=== PATIENT | female | born 1960 | race Caucasian/White ===

== ENCOUNTER → 2016-12-27 | Outpatient (CLI) | payer MEDICARE, MEDICAID ==
--- NOTE | 2016-12-27 11:34 | REPMRS ---
Patient History The patient states she has not had a clinical breast exam in over a year. Patient is postmenopausal and is nulliparous. Family history of prostate cancer in father at age 50 or over and colorectal cancer in sister. Digital Woman Screen Mammo: December 27, 2016 - Exam #: [id number] Bilateral CC and MLO view(s) were taken. Technologist: Rita Benson, Technologist Prior study comparison: January 08, 2016, digital woman screen mammo performed at [facility]. January 03, 2015, digital woman screen mammo performed at [facility]. December 07, 2013, digital woman screen mammo performed at [facility]. FINDINGS: The breast tissue is heterogeneously dense. This may lower the sensitivity of mammography. There is a moderate amount of heterogeneously dense fibroglandular tissue which is fairly symmetric. There is no interval development of dominant mass, architectural distortion, or clustered microcalcification typical of malignancy. There has been no change in the appearance of the mammogram from the prior studies. ASSESSMENT: BI-RADS/ACR category 1 mammogram. Negative. Recommendation Routine screening mammogram of both breasts in 1 year (for women over age 40). This mammogram was interpreted with the aid of an FDA-approved computer-aided dectection system. Electronically Signed By: Jeremiah Forrest MD 12/27/16 [id number]
== END ==
LOC: M WHC 09:51
PROVIDERS: ATTEND Internal Medicine
DX: Z12.31 Encounter for screening mammogram for malignant neoplasm of breast (principal)

== ENCOUNTER → 2017-03-05 | Outpatient (REF) | payer MEDICARE, MEDICAID ==
[2017-03-05 13:48] LABS: BASO % 0.7 % (0.0-1.0); EOS # 0.2 K/mm3 (0.0-0.50); EOS % 3.4 % (0.0-3.0); LARGE UNSTAINED CELL # 0.1 K/mm3 (0.0-0.4); LARGE UNSTAINED CELL % 1.6 % (0.0-4.0); LYMPH # 1.3 K/mm3 (1.5-4.5); LYMPH % 27.7 % (24.0-44.0); MEAN CORPUSCULAR HEMOGLOBIN 34.1 pg (27.0-33.0); MEAN CORPUSCULAR VOLUME 100.4 fl (80.0-96.0); MONO # 0.4 K/mm3 (0.0-0.8); MONO % 8.7 % (0.0-5.0); NEUTROPHILS # 2.6 K/mm3 (1.8-7.7); NEUTROPHILS % 57.8 % (36.0-66.0); PLATELET COUNT, AUTOMATED 228 k/mm3 (150-450); WHITE BLOOD COUNT 4.6 K/mm3 (4.0-10.0)
[2017-03-05 14:06] LABS: ALBUMIN 3.2 GM/DL (3.2-5.2); ALBUMIN/GLOBULIN RATIO 0.78 (1.00-1.93); ALKALINE PHOSPHATASE 81 U/L (45-117); ALT/SGPT 14 U/L (12-78); ANION GAP 6 MEQ/L (8-16); AST/SGOT 7 U/L (15-37); BILIRUBIN,TOTAL 0.1 MG/DL (0.2-1.0); BLOOD UREA NITROGEN 18 MG/DL (7-18); CALCIUM LEVEL 9.1 MG/DL (8.5-10.1); CARBAMAZEPINE (TEGRETOL) LEVEL 13.1 UG/ML (4.0-10.0); CARBON DIOXIDE LEVEL 29 MEQ/L (21-32); CHLORIDE LEVEL 96 MEQ/L (98-107); CREATININE FOR GFR 0.51 MG/DL (0.55-1.02); GLOMERULAR FILTRATION RATE > 60.0 (>51); GLUCOSE, FASTING 92 MG/DL (70-105); POTASSIUM SERUM 4.8 MEQ/L (3.5-5.1); SODIUM LEVEL 131 MEQ/L (136-145); TOTAL PROTEIN 7.3 GM/DL (6.4-8.2)
== END ==
LOC: M LABNEURO 12:47
PROVIDERS: ATTEND Psychiatry & Neurology Neurology
DX: R56.9 Unspecified convulsions (principal)

== ENCOUNTER → 2017-03-07 | Outpatient (REF) | payer MEDICARE, MEDICAID ==
[2017-03-07 09:46] LABS: MEAN CORPUSCULAR HEMOGLOBIN 33.6 pg (27.0-33.0); MEAN CORPUSCULAR HGB CONC 33.2 g/dl (32.0-36.5); RED CELL DISTRIBUTION WIDTH 15.1 % (11.5-14.5); WHITE BLOOD COUNT 5.5 K/mm3 (4.0-10.0)
[2017-03-07 10:00] LABS: ALBUMIN 2.9 GM/DL (3.2-5.2); ALBUMIN/GLOBULIN RATIO 0.73 (1.00-1.93); ALKALINE PHOSPHATASE 83 U/L (45-117); ALT/SGPT 16 U/L (12-78); ANION GAP 9 MEQ/L (8-16); AST/SGOT 6 U/L (15-37); BILIRUBIN,TOTAL 0.1 MG/DL (0.2-1.0); BLOOD UREA NITROGEN 18 MG/DL (7-18); CALCIUM LEVEL 8.5 MG/DL (8.5-10.1); CARBON DIOXIDE LEVEL 29 MEQ/L (21-32); CHLORIDE LEVEL 95 MEQ/L (98-107); CHOLESTEROL LEVEL 206 MG/DL (<200); CREATININE FOR GFR 0.58 MG/DL (0.55-1.02); GLOMERULAR FILTRATION RATE > 60.0 (>51); GLUCOSE, FASTING 81 MG/DL (70-105); POTASSIUM SERUM 4.9 MEQ/L (3.5-5.1); SODIUM LEVEL 133 MEQ/L (136-145); TOTAL PROTEIN 6.9 GM/DL (6.4-8.2); TRIGLYCERIDES LEVEL 179 MG/DL (<150)
== END ==
LOC: M SFHCPLAZ 08:28
PROVIDERS: ATTEND Internal Medicine
DX: G40.909 Epilepsy, unspecified, not intractable, without status epilepticus (principal); Z79.899 Other long term (current) drug therapy; E78.00 Pure hypercholesterolemia, unspecified

== ENCOUNTER → 2017-08-29 | Outpatient (REF) | payer MEDICARE, MEDICAID ==
[2017-08-29 12:17] LABS: MEAN CORPUSCULAR HEMOGLOBIN 33.2 pg (27.0-33.0); MEAN CORPUSCULAR HGB CONC 34.9 g/dl (32.0-36.5); MEAN CORPUSCULAR VOLUME 95.3 fl (80.0-96.0); PLATELET COUNT, AUTOMATED 213 10^3/uL (150-450); RED CELL DISTRIBUTION WIDTH 14.8 % (11.5-14.5); WHITE BLOOD COUNT 6.7 10^3/uL (4.0-10.0)
[2017-08-29 12:53] LABS: ALBUMIN/GLOBULIN RATIO 0.83 (1.00-1.93); ALKALINE PHOSPHATASE 78 U/L (45-117); ALT/SGPT 17 U/L (12-78); ANION GAP 7 MEQ/L (8-16); AST/SGOT 10 U/L (7-37); BILIRUBIN,TOTAL 0.2 MG/DL (0.2-1.0); BLOOD UREA NITROGEN 18 MG/DL (7-18); CALCIUM LEVEL 8.5 MG/DL (8.5-10.1); CARBON DIOXIDE LEVEL 28 MEQ/L (21-32); CHLORIDE LEVEL 95 MEQ/L (98-107); CHOLESTEROL LEVEL 227 MG/DL (<200); GLOMERULAR FILTRATION RATE > 60.0 (>51); GLUCOSE, FASTING 82 MG/DL (70-105); MAGNESIUM LEVEL 2.1 MG/DL (1.8-2.4); SODIUM LEVEL 130 MEQ/L (136-145); TOTAL PROTEIN 6.6 GM/DL (6.4-8.2); TRIGLYCERIDES LEVEL 152 MG/DL (<150)
[2017-08-29 12:56] LABS: POTASSIUM SERUM 5.5 MEQ/L (3.5-5.1)
== END ==
LOC: M SFHCPLAZ 10:01
PROVIDERS: ATTEND Internal Medicine
DX: G40.909 Epilepsy, unspecified, not intractable, without status epilepticus (principal); E87.1 Hypo-osmolality and hyponatremia; E03.9 Hypothyroidism, unspecified; E78.00 Pure hypercholesterolemia, unspecified; Z51.81 Encounter for therapeutic drug level monitoring; Z23 Encounter for immunization; Z79.899 Other long term (current) drug therapy
CPT/HCPCS: 36415; 80053; 80061; 83735; 84443; 85027; 90686; G0008; G0463

== ENCOUNTER → 2017-10-29 | Outpatient (REF) | payer MEDICARE, MEDICAID ==
[2017-10-29 17:57] LABS: BASO % 0.6 % (0.0-1.0); EOS # 0.1 10^3/uL (0.0-0.50); EOS % 1.3 % (0.0-3.0); HEMOGLOBIN 11.7 g/dl (12.0-16.0); IMMATURE GRANULOCYTE % 0.7 % (0-0); LYMPH # 1.5 10^3/uL (1.5-4.5); LYMPH % 27.7 % (24.0-44.0); MEAN CORPUSCULAR HEMOGLOBIN 33.2 pg (27.0-33.0); MEAN CORPUSCULAR HGB CONC 35.5 g/dl (32.0-36.5); MEAN CORPUSCULAR VOLUME 93.8 fl (80.0-96.0); MONO # 0.4 10^3/uL (0.0-0.8); MONO % 7.3 % (0.0-5.0); NEUTROPHILS # 3.3 10^3/uL (1.8-7.7); NEUTROPHILS % 62.4 % (36.0-66.0); PLATELET COUNT, AUTOMATED 202 10^3/uL (150-450); RED BLOOD COUNT 3.52 10^6/uL (4.00-5.40); RED CELL DISTRIBUTION WIDTH 14.6 % (11.5-14.5); WHITE BLOOD COUNT 5.3 10^3/uL (4.0-10.0)
[2017-10-29 20:13] LABS: ALBUMIN 3.2 GM/DL (3.2-5.2); ALKALINE PHOSPHATASE 97 U/L (45-117); ALT/SGPT 20 U/L (12-78); ANION GAP 8 MEQ/L (8-16); AST/SGOT 14 U/L (7-37); BILIRUBIN,TOTAL 0.2 MG/DL (0.2-1.0); BLOOD UREA NITROGEN 18 MG/DL (7-18); CALCIUM LEVEL 8.5 MG/DL (8.5-10.1); CARBON DIOXIDE LEVEL 28 MEQ/L (21-32); CHLORIDE LEVEL 93 MEQ/L (98-107); CREATININE FOR GFR 0.65 MG/DL (0.55-1.02); GLOMERULAR FILTRATION RATE > 60.0 (>51); GLUCOSE, FASTING 81 MG/DL (70-105); SODIUM LEVEL 129 MEQ/L (136-145); TOTAL PROTEIN 7.2 GM/DL (6.4-8.2); VALPROIC ACID (DEPAKOTE) 91.3 UG/ML (50.0-100.0)
[2017-10-29 20:20] LABS: POTASSIUM SERUM 5.3 MEQ/L (3.5-5.1)
== END ==
LOC: M LABNEURO 11:49
DX: G40.909 Epilepsy, unspecified, not intractable, without status epilepticus (principal); G43.909 Migraine, unspecified, not intractable, without status migrainosus
CPT/HCPCS: 80156

== ENCOUNTER → 2018-03-09 | Outpatient (REF) | payer MEDICARE, MEDICAID ==
[2018-03-09 16:00] LABS: HEMATOCRIT 32.7 % (36.0-47.0); HEMOGLOBIN 10.9 g/dl (12.0-15.5); MEAN CORPUSCULAR HEMOGLOBIN 31.1 pg (27.0-33.0); MEAN CORPUSCULAR HGB CONC 33.3 g/dl (32.0-36.5); MEAN CORPUSCULAR VOLUME 93.4 fl (80.0-96.0); PLATELET COUNT, AUTOMATED 184 10^3/uL (150-450); RED CELL DISTRIBUTION WIDTH 15.5 % (11.5-14.5); WHITE BLOOD COUNT 6.6 10^3/uL (4.0-10.0)
[2018-03-09 16:22] LABS: ALBUMIN/GLOBULIN RATIO 0.73 (1.00-1.93); ALKALINE PHOSPHATASE 86 U/L (45-117); ALT/SGPT 15 U/L (12-78); ANION GAP 8 MEQ/L (8-16); AST/SGOT 13 U/L (7-37); BILIRUBIN,TOTAL 0.1 MG/DL (0.2-1.0); BLOOD UREA NITROGEN 17 MG/DL (7-18); CALCIUM LEVEL 8.2 MG/DL (8.5-10.1); CARBON DIOXIDE LEVEL 26 MEQ/L (21-32); CHLORIDE LEVEL 97 MEQ/L (98-107); CHOLESTEROL LEVEL 222 MG/DL (<200); CHOLESTEROL RISK RATIO 3.894 (<5); CREATININE FOR GFR 0.71 MG/DL (0.55-1.30); GLOMERULAR FILTRATION RATE > 60.0 (>51); GLUCOSE, FASTING 80 MG/DL (70-100); HDL CHOLESTEROL 57 MG/DL (>40); MAGNESIUM LEVEL 2.2 MG/DL (1.8-2.4); NON-HDL-C 165 MG/DL; POTASSIUM SERUM 5.1 MEQ/L (3.5-5.1); SODIUM LEVEL 131 MEQ/L (136-145); TOTAL PROTEIN 7.1 GM/DL (6.4-8.2); TRIGLYCERIDES LEVEL 185 MG/DL (<150)
== END ==
LOC: M SFHCPLAZ 11:45
DX: G40.909 Epilepsy, unspecified, not intractable, without status epilepticus (principal); E78.00 Pure hypercholesterolemia, unspecified; E03.9 Hypothyroidism, unspecified
CPT/HCPCS: 83735

== ENCOUNTER 2018-07-01 09:22 | Inpatient (IN) | payer MEDICARE, MEDICAID ==
[~2018-07-01 09:22] MED LIST: FLUTICASONE PROP 0.05% NASAL SPRAY 16 GM (FLONASE) NARES
[2018-07-01 10:16] LABS: BASO % 0.3 % (0.0-1.0); EOS % 0.2 % (0.0-3.0); HEMOGLOBIN 13.1 g/dl (12.0-15.5); IMMATURE GRANULOCYTE % 0.6 % (0-3.0); LYMPH # 0.9 10^3/uL (1.5-4.5); MEAN CORPUSCULAR HEMOGLOBIN 31.7 pg (27.0-33.0); MEAN CORPUSCULAR HGB CONC 34.5 g/dl (32.0-36.5); MONO # 0.9 10^3/uL (0.0-0.8); MONO % 13.8 % (0.0-5.0); NEUTROPHILS # 4.7 10^3/uL (1.8-7.7); NEUTROPHILS % 72.1 % (36.0-66.0); PLATELET COUNT, AUTOMATED 129 10^3/uL (150-450); RED BLOOD COUNT 4.13 10^6/uL (4.00-5.40); RED CELL DISTRIBUTION WIDTH 16.1 % (11.5-14.5); VENOUS BASE EXCESS -0.5 (-2.0-2.0); VENOUS HCO3 25.4 MEQ/L (23.0-27.0); VENOUS O2 SATURATION 51.2 % (60.0-80.0); VENOUS PARTIAL PRESSURE CO2 46.8 mmHg (38.0-50.0); VENOUS PARTIAL PRESSURE O2 29.2 mmHg (30.0-50.0); VENOUS PH 7.353 UNITS (7.330-7.430); VENOUS STANDARD HCO3 22.9 MEQ/L; VENOUS TOTAL CO2 26.9 MEQ/L (24.0-28.0); WHITE BLOOD COUNT 6.5 10^3/uL (4.0-10.0)
[2018-07-01 10:38] LABS: AMMONIA 20 uMOL/L (<32)
[2018-07-01 10:43] LABS: ALBUMIN 3.3 GM/DL (3.2-5.2); ALBUMIN/GLOBULIN RATIO 0.77 (1.00-1.93); ALKALINE PHOSPHATASE 84 U/L (45-117); ALT/SGPT 34 U/L (12-78); ANION GAP 12 MEQ/L (8-16); AST/SGOT 53 U/L (7-37); BILIRUBIN,DIRECT 0.1 MG/DL (0.0-0.2); BILIRUBIN,TOTAL 0.3 MG/DL (0.2-1.0); BLOOD UREA NITROGEN 22 MG/DL (7-18); CARBON DIOXIDE LEVEL 24 MEQ/L (21-32); CHLORIDE LEVEL 95 MEQ/L (98-107); CREATININE FOR GFR 0.74 MG/DL (0.55-1.30); ETHYL ALCOHOL (ETHANOL) < 0.003 % (0.000-0.010); GLOMERULAR FILTRATION RATE > 60.0 (>51); GLUCOSE, FASTING 113 MG/DL (70-100); POTASSIUM SERUM 4.1 MEQ/L (3.5-5.1); SALICYLATE LEVEL < 1.7 MG/DL (5.0-30.0); SODIUM LEVEL 131 MEQ/L (136-145); TOTAL PROTEIN 7.6 GM/DL (6.4-8.2); TROPONIN I 0.03 NG/ML (< 0.10)
[2018-07-01 10:44] LABS: LACTIC ACID SEPSIS PROTOCOL 1.2 MMOL/L (0.4-2.0)
[2018-07-01] MEDS: NS 1,000 ML IV ×2 (10:48→13:59)
[2018-07-01] MEDS: DIVALPROEX 500 MG TAB PO ×3 (10:48→21:36)
[2018-07-01 10:55] LABS: CK-MB VALUE MASS 15.9 NG/ML (<3.6); CPK CREATINE PHOSPHOKINASE 1271 U/L (26-192); MB/CK RELATIVE INDEX 1.25 (< OR =4)
[2018-07-01 10:57] LABS: ACETAMINOPHEN LEVEL < 2.0 UG/ML (10.0-30.0)
[2018-07-01 12:40] LABS: MYOGLOBIN SCREEN, URINE POSITIVE (NEGATIVE)
[2018-07-01 12:41] LABS: AMPHETAMINES LEVEL URINE NEGATIVE (NEGATIVE); BARBITURATES URINE NEGATIVE (NEGATIVE); BENZODIAZEPINES URINE NEGATIVE (NEGATIVE); CANNABINOIDS URINE NEGATIVE (NEGATIVE); COCAINE METABOLITE URINE NEGATIVE (NEGATIVE); METHADONE URINE NEGATIVE (NEGATIVE); OPIATES URINE NEGATIVE (NEGATIVE); PHENCYCLIDINE URINE NEGATIVE (NEGATIVE)
[2018-07-01 12:49] LABS: VALPROIC ACID (DEPAKOTE) 13.3 UG/ML (50.0-100.0)
[2018-07-01] MEDS ORDERED: ACETAMINOPHEN TAB 650MG DOSE (2X325MG) PO (13:00)
[2018-07-01] MEDS ORDERED: ONDANSETRON 4MG/2ML VIAL (J2405) IV (13:00)
[2018-07-01 13:31] LABS: MYOGLOBIN 791 NG/ML (13-71)
[2018-07-01] MEDS: CitaloPRAM (CeleXA) 20 MG TAB PO (13:59)
[2018-07-01] MEDS: levETIRAcetam 250MG TABLET (KEPPRA) PO ×2 (13:59→21:36)
[2018-07-01] MEDS: OMEPRAZOLE 20 MG CAP PO (13:59)
[2018-07-01] MEDS: LEVOTHYROXINE 112MCG TABLET (0.112MG) PO (14:00)
[2018-07-01] MEDS: carBAMazepine 200 MG TAB PO ×2 (14:01→21:35)
[2018-07-01 14:19] LABS: CARBAMAZEPINE (TEGRETOL) LEVEL 6.7 UG/ML (4.0-10.0)
[2018-07-01 15:23] LABS: CARBAMAZEPINE (TEGRETOL) LEVEL 4.8 UG/ML (4.0-10.0)
[2018-07-01] MEDS: HEPARIN SOD (PORCINE) 5000 UNITS/ML VIAL SQ ×2 (16:24→21:35)
[2018-07-02] MEDS: NS 1,000 ML IV ×5 (00:38→20:00)
[2018-07-02] MEDS: TAMSULOSIN 0.4 MG CAP PO (01:57)
[2018-07-02] MEDS: NYSTATIN 100,000 UNITS/GM TOPICAL PWD 15 GM TOP ×4 (02:15→21:25)
[2018-07-02] MEDS: LEVOTHYROXINE 112MCG TABLET (0.112MG) PO (05:32)
[2018-07-02] MEDS: HEPARIN SOD (PORCINE) 5000 UNITS/ML VIAL SQ ×3 (05:33→21:25)
[2018-07-02 06:42] LABS: MEAN CORPUSCULAR HEMOGLOBIN 32.1 pg (27.0-33.0); MEAN CORPUSCULAR VOLUME 94.3 fl (80.0-96.0); PLATELET COUNT, AUTOMATED 104 10^3/uL (150-450); RED BLOOD COUNT 3.18 10^6/uL (4.00-5.40); RED CELL DISTRIBUTION WIDTH 16.5 % (11.5-14.5); WHITE BLOOD COUNT 5.3 10^3/uL (4.0-10.0)
[2018-07-02 06:54] LABS: ALBUMIN 2.4 GM/DL (3.2-5.2); ALKALINE PHOSPHATASE 65 U/L (45-117); ALT/SGPT 49 U/L (12-78); ANION GAP 11 MEQ/L (8-16); AST/SGOT 74 U/L (7-37); BILIRUBIN,TOTAL 0.2 MG/DL (0.2-1.0); BLOOD UREA NITROGEN 21 MG/DL (7-18); CARBON DIOXIDE LEVEL 21 MEQ/L (21-32); CHLORIDE LEVEL 104 MEQ/L (98-107); CPK CREATINE PHOSPHOKINASE 644 U/L (26-192); CREATININE FOR GFR 0.55 MG/DL (0.55-1.30); GLOMERULAR FILTRATION RATE > 60.0 (>51); GLUCOSE, FASTING 93 MG/DL (70-100); POTASSIUM SERUM 4.1 MEQ/L (3.5-5.1); SODIUM LEVEL 136 MEQ/L (136-145); TOTAL PROTEIN 6.4 GM/DL (6.4-8.2)
[2018-07-02 06:56] LABS: HEMOGLOBIN 10.2 g/dl (12.0-15.5)
[2018-07-02] MEDS: CitaloPRAM (CeleXA) 20 MG TAB PO (09:26)
[2018-07-02] MEDS: OMEPRAZOLE 20 MG CAP PO (09:26)
[2018-07-02] MEDS: carBAMazepine 200 MG TAB PO ×3 (09:26→21:24)
[2018-07-02] MEDS: DIVALPROEX 500 MG TAB PO ×3 (09:26→21:24)
[2018-07-02] MEDS: levETIRAcetam 250MG TABLET (KEPPRA) PO ×2 (09:26→21:24)
[2018-07-02] MEDS: CETIRIZINE (ZyrTEC) 10 MG TAB PO (23:20)
[2018-07-02] MEDS: BENZONATATE 100 MG CAP PO (23:20)
[2018-07-03] MEDS: NS 1,000 ML IV (04:55)
[2018-07-03] MEDS: LEVOTHYROXINE 112MCG TABLET (0.112MG) PO (05:37)
[2018-07-03] MEDS: HEPARIN SOD (PORCINE) 5000 UNITS/ML VIAL SQ ×3 (05:38→21:06)
[2018-07-03 06:14] LABS: HEMATOCRIT 28.7 % (36.0-47.0); HEMOGLOBIN 9.8 g/dl (12.0-15.5); MEAN CORPUSCULAR HGB CONC 34.1 g/dl (32.0-36.5); MEAN CORPUSCULAR VOLUME 93.8 fl (80.0-96.0); PLATELET COUNT, AUTOMATED 114 10^3/uL (150-450); RED BLOOD COUNT 3.06 10^6/uL (4.00-5.40); RED CELL DISTRIBUTION WIDTH 16.5 % (11.5-14.5); WHITE BLOOD COUNT 5.7 10^3/uL (4.0-10.0)
[2018-07-03 06:34] LABS: ALBUMIN 2.1 GM/DL (3.2-5.2); ALBUMIN/GLOBULIN RATIO 0.55 (1.00-1.93); ALKALINE PHOSPHATASE 69 U/L (45-117); ALT/SGPT 50 U/L (12-78); ANION GAP 11 MEQ/L (8-16); AST/SGOT 51 U/L (7-37); BILIRUBIN,TOTAL 0.2 MG/DL (0.2-1.0); BLOOD UREA NITROGEN 10 MG/DL (7-18); CALCIUM LEVEL 7.7 MG/DL (8.5-10.1); CARBON DIOXIDE LEVEL 21 MEQ/L (21-32); CHLORIDE LEVEL 108 MEQ/L (98-107); GLOMERULAR FILTRATION RATE > 60.0 (>51); GLUCOSE, FASTING 90 MG/DL (70-100); POTASSIUM SERUM 3.9 MEQ/L (3.5-5.1); SODIUM LEVEL 140 MEQ/L (136-145); TOTAL PROTEIN 5.9 GM/DL (6.4-8.2)
[2018-07-03] MEDS: DIVALPROEX 500 MG TAB PO ×3 (09:09→21:06)
[2018-07-03] MEDS: carBAMazepine 200 MG TAB PO ×3 (09:09→21:05)
[2018-07-03] MEDS: levETIRAcetam 250MG TABLET (KEPPRA) PO ×2 (09:10→21:05)
[2018-07-03] MEDS: CitaloPRAM (CeleXA) 20 MG TAB PO (09:10)
[2018-07-03] MEDS: NYSTATIN 100,000 UNITS/GM TOPICAL PWD 15 GM TOP ×3 (09:10→21:07)
[2018-07-03] MEDS: OMEPRAZOLE 20 MG CAP PO (09:10)
[2018-07-03 10:19] LABS: CPK CREATINE PHOSPHOKINASE 280 U/L (26-192)
[2018-07-03] MEDS: CETIRIZINE (ZyrTEC) 10 MG TAB PO (21:05)
[2018-07-04 04:13] LABS: BEDSIDE GLUCOSE 95 MG/DL (70-105)
[2018-07-04] MEDS: HEPARIN SOD (PORCINE) 5000 UNITS/ML VIAL SQ ×3 (05:25→21:21)
[2018-07-04] MEDS: LEVOTHYROXINE 112MCG TABLET (0.112MG) PO (05:26)
[2018-07-04 06:13] LABS: HEMATOCRIT 28.2 % (36.0-47.0); HEMOGLOBIN 9.7 g/dl (12.0-15.5); MEAN CORPUSCULAR HEMOGLOBIN 31.5 pg (27.0-33.0); MEAN CORPUSCULAR HGB CONC 34.4 g/dl (32.0-36.5); MEAN CORPUSCULAR VOLUME 91.6 fl (80.0-96.0); PLATELET COUNT, AUTOMATED 127 10^3/uL (150-450); RED BLOOD COUNT 3.08 10^6/uL (4.00-5.40); RED CELL DISTRIBUTION WIDTH 16.5 % (11.5-14.5); WHITE BLOOD COUNT 4.6 10^3/uL (4.0-10.0)
[2018-07-04] MEDS: BENZONATATE 100 MG CAP PO ×2 (06:17→21:20)
[2018-07-04 06:25] LABS: ALBUMIN 2.1 GM/DL (3.2-5.2); ALBUMIN/GLOBULIN RATIO 0.51 (1.00-1.93); ALKALINE PHOSPHATASE 72 U/L (45-117); ALT/SGPT 41 U/L (12-78); ANION GAP 9 MEQ/L (8-16); AST/SGOT 30 U/L (7-37); BILIRUBIN,TOTAL 0.2 MG/DL (0.2-1.0); BLOOD UREA NITROGEN 7 MG/DL (7-18); CALCIUM LEVEL 8.3 MG/DL (8.5-10.1); CARBON DIOXIDE LEVEL 23 MEQ/L (21-32); CHLORIDE LEVEL 108 MEQ/L (98-107); GLOMERULAR FILTRATION RATE > 60.0 (>51); GLUCOSE, FASTING 81 MG/DL (70-100); POTASSIUM SERUM 3.7 MEQ/L (3.5-5.1); SODIUM LEVEL 140 MEQ/L (136-145); TOTAL PROTEIN 6.2 GM/DL (6.4-8.2)
[2018-07-04] MEDS: levETIRAcetam 250MG TABLET (KEPPRA) PO ×2 (09:21→21:20)
[2018-07-04] MEDS: CitaloPRAM (CeleXA) 20 MG TAB PO (09:21)
[2018-07-04] MEDS: carBAMazepine 200 MG TAB PO ×3 (09:21→21:20)
[2018-07-04] MEDS: OMEPRAZOLE 20 MG CAP PO (09:22)
[2018-07-04] MEDS: NYSTATIN 100,000 UNITS/GM TOPICAL PWD 15 GM TOP ×3 (09:22→21:21)
[2018-07-04] MEDS: DIVALPROEX 500 MG TAB PO ×3 (09:22→21:20)
[2018-07-04 11:27] LABS: ESTIMATED AVERAGE GLUCOSE 114 MG/DL (60-110); HEMOGLOBIN A1c 5.6 %
[2018-07-04] MEDS: LISINOPRIL 5 MG TAB PO (12:24)
[2018-07-04] MEDS: amLODIPine 10 MG TAB PO (12:24)
[2018-07-04 12:44] LABS: KETONE, URINE AUTO RFX TRACE mg/dL (NEGATIVE); NITRITE, URINE AUTO RFX NEGATIVE (NEGATIVE); RBC, URINE AUTO RFX 1 /HPF (0-3); SPECIFIC GRAVITY UR AUTO RFX 1.009 (1.002-1.035); SQUAM EPITHELIAL CELL UR AURFX 0 /HPF (0-6)
[2018-07-04 12:45] LABS: LEUKOCYTE ESTERASE UR AUTO RFX 1+ (NEGATIVE); WBC, URINE AUTO RFX 21 /HPF (0-3)
[2018-07-04] MEDS: CETIRIZINE (ZyrTEC) 10 MG TAB PO (21:20)
[2018-07-05] MEDS: BENZONATATE 100 MG CAP PO (00:27)
[2018-07-05] MEDS: LISINOPRIL 5 MG TAB PO ×2 (05:34→05:43)
[2018-07-05] MEDS: amLODIPine 10 MG TAB PO (05:42)
[2018-07-05] MEDS: LEVOTHYROXINE 112MCG TABLET (0.112MG) PO (05:42)
[2018-07-05] MEDS: HEPARIN SOD (PORCINE) 5000 UNITS/ML VIAL SQ ×3 (05:43→21:46)
[2018-07-05 06:19] LABS: HEMATOCRIT 30.2 % (36.0-47.0); HEMOGLOBIN 10.6 g/dl (12.0-15.5); MEAN CORPUSCULAR HEMOGLOBIN 32.1 pg (27.0-33.0); MEAN CORPUSCULAR HGB CONC 35.1 g/dl (32.0-36.5); MEAN CORPUSCULAR VOLUME 91.5 fl (80.0-96.0); PLATELET COUNT, AUTOMATED 171 10^3/uL (150-450); RED CELL DISTRIBUTION WIDTH 16.3 % (11.5-14.5); WHITE BLOOD COUNT 4.5 10^3/uL (4.0-10.0)
[2018-07-05 06:44] LABS: ALBUMIN 2.2 GM/DL (3.2-5.2); ALBUMIN/GLOBULIN RATIO 0.51 (1.00-1.93); ALKALINE PHOSPHATASE 73 U/L (45-117); ALT/SGPT 35 U/L (12-78); ANION GAP 9 MEQ/L (8-16); AST/SGOT 23 U/L (7-37); BILIRUBIN,TOTAL 0.3 MG/DL (0.2-1.0); BLOOD UREA NITROGEN 7 MG/DL (7-18); CALCIUM LEVEL 8.7 MG/DL (8.5-10.1); CARBON DIOXIDE LEVEL 24 MEQ/L (21-32); CHLORIDE LEVEL 105 MEQ/L (98-107); CREATININE FOR GFR 0.41 MG/DL (0.55-1.30); GLOMERULAR FILTRATION RATE > 60.0 (>51); GLUCOSE, FASTING 82 MG/DL (70-100); POTASSIUM SERUM 3.5 MEQ/L (3.5-5.1); SODIUM LEVEL 138 MEQ/L (136-145); TOTAL PROTEIN 6.5 GM/DL (6.4-8.2)
[2018-07-05 08:54] LABS: NT-PRO BNP 1803 PG/ML (<125)
[2018-07-05] MEDS ORDERED: amLODIPine 10 MG TAB PO (09:00)
[2018-07-05] MEDS: guaiFENesin DM LIQ 10ML UD PO ×2 (10:42→22:52)
[2018-07-05] MEDS: carBAMazepine 200 MG TAB PO ×3 (10:43→21:47)
[2018-07-05] MEDS: OMEPRAZOLE 20 MG CAP PO (10:43)
[2018-07-05] MEDS: levETIRAcetam 250MG TABLET (KEPPRA) PO ×2 (10:43→21:47)
[2018-07-05] MEDS: DIVALPROEX 500 MG TAB PO ×3 (10:43→21:47)
[2018-07-05] MEDS: CitaloPRAM (CeleXA) 20 MG TAB PO (10:44)
[2018-07-05] MEDS: cloNIDine 0.1 MG TAB PO ×2 (10:47→13:07)
[2018-07-05] MEDS: NYSTATIN 100,000 UNITS/GM TOPICAL PWD 15 GM TOP ×3 (10:48→21:47)
[2018-07-05] MEDS: LISINOPRIL 10 MG TAB PO ×2 (11:30→13:07)
[2018-07-05] MEDS: FUROSEMIDE 40 MG/4 ML VIAL (J1940) IV ×3 (11:30→22:55)
[2018-07-05 19:49] LABS: ANION GAP 8 MEQ/L (8-16); BLOOD UREA NITROGEN 8 MG/DL (7-18); CALCIUM LEVEL 8.7 MG/DL (8.5-10.1); CARBON DIOXIDE LEVEL 26 MEQ/L (21-32); CHLORIDE LEVEL 101 MEQ/L (98-107); CK-MB VALUE MASS 1.7 NG/ML (<3.6); CPK CREATINE PHOSPHOKINASE 97 U/L (26-192); CREATININE FOR GFR 0.57 MG/DL (0.55-1.30); GLOMERULAR FILTRATION RATE > 60.0 (>51); GLUCOSE, FASTING 83 MG/DL (70-100); MAGNESIUM LEVEL 1.7 MG/DL (1.8-2.4); MB/CK RELATIVE INDEX 1.75 (< OR =4); POTASSIUM SERUM 3.5 MEQ/L (3.5-5.1); SODIUM LEVEL 135 MEQ/L (136-145); TROPONIN I < 0.02 NG/ML (< 0.10)
[2018-07-05] MEDS: CETIRIZINE (ZyrTEC) 10 MG TAB PO (21:47)
[2018-07-06] MEDS: LEVOTHYROXINE 112MCG TABLET (0.112MG) PO (05:25)
[2018-07-06] MEDS: HEPARIN SOD (PORCINE) 5000 UNITS/ML VIAL SQ ×3 (05:25→21:55)
[2018-07-06] MEDS: FUROSEMIDE 40 MG/4 ML VIAL (J1940) IV ×3 (05:25→16:25)
[2018-07-06 06:11] LABS: HEMATOCRIT 30.2 % (36.0-47.0); HEMOGLOBIN 10.2 g/dl (12.0-15.5); MEAN CORPUSCULAR HEMOGLOBIN 31.6 pg (27.0-33.0); MEAN CORPUSCULAR HGB CONC 33.8 g/dl (32.0-36.5); MEAN CORPUSCULAR VOLUME 93.5 fl (80.0-96.0); PLATELET COUNT, AUTOMATED 178 10^3/uL (150-450); RED BLOOD COUNT 3.23 10^6/uL (4.00-5.40); RED CELL DISTRIBUTION WIDTH 16.5 % (11.5-14.5); WHITE BLOOD COUNT 4.4 10^3/uL (4.0-10.0)
[2018-07-06 06:17] LABS: ALBUMIN 2.4 GM/DL (3.2-5.2); ALBUMIN/GLOBULIN RATIO 0.55 (1.00-1.93); ALKALINE PHOSPHATASE 76 U/L (45-117); ALT/SGPT 30 U/L (12-78); ANION GAP 8 MEQ/L (8-16); AST/SGOT 19 U/L (7-37); BILIRUBIN,TOTAL 0.3 MG/DL (0.2-1.0); BLOOD UREA NITROGEN 11 MG/DL (7-18); CALCIUM LEVEL 8.5 MG/DL (8.5-10.1); CARBON DIOXIDE LEVEL 28 MEQ/L (21-32); CHLORIDE LEVEL 100 MEQ/L (98-107); CREATININE FOR GFR 0.62 MG/DL (0.55-1.30); GLOMERULAR FILTRATION RATE > 60.0 (>51); GLUCOSE, FASTING 80 MG/DL (70-100); POTASSIUM SERUM 3.2 MEQ/L (3.5-5.1); SODIUM LEVEL 136 MEQ/L (136-145); TOTAL PROTEIN 6.8 GM/DL (6.4-8.2)
[2018-07-06 09:23] LABS: TOTAL 25(OH) VITAMIN D 11.9 NG/ML (30.0-100.0)
[2018-07-06 09:24] LABS: VITAMIN B12 LEVEL 1608 PG/ML (247-911)
[2018-07-06 09:24] LABS: FOLATE 6.2 NG/ML (>5.4)
[2018-07-06] MEDS: BISACODYL 5 MG TAB PO (09:58)
[2018-07-06] MEDS: OMEPRAZOLE 20 MG CAP PO (09:58)
[2018-07-06] MEDS: DIVALPROEX 500 MG TAB PO ×3 (09:58→21:56)
[2018-07-06] MEDS: guaiFENesin DM LIQ 10ML UD PO ×3 (09:59→22:54)
[2018-07-06] MEDS: levETIRAcetam 250MG TABLET (KEPPRA) PO ×2 (09:59→21:55)
[2018-07-06] MEDS: CitaloPRAM (CeleXA) 20 MG TAB PO (09:59)
[2018-07-06] MEDS: carBAMazepine 200 MG TAB PO ×3 (09:59→21:56)
[2018-07-06] MEDS: NYSTATIN 100,000 UNITS/GM TOPICAL PWD 15 GM TOP ×3 (09:59→21:56)
[2018-07-06] MEDS: LevoFLOXacin 750 MG TABLET PO (15:09)
[2018-07-06] MEDS: POTASSIUM CHLORIDE 10 MEQ SR TABLET PO (17:28)
[2018-07-06] MEDS: BENZONATATE 100 MG CAP PO (17:35)
[2018-07-06] MEDS: CETIRIZINE (ZyrTEC) 10 MG TAB PO (21:55)
[2018-07-07] MEDS: HEPARIN SOD (PORCINE) 5000 UNITS/ML VIAL SQ ×3 (05:44→20:30)
[2018-07-07] MEDS: LEVOTHYROXINE 112MCG TABLET (0.112MG) PO (05:44)
[2018-07-07] MEDS: LevoFLOXacin 750 MG TABLET PO (05:44)
[2018-07-07] MEDS: BENZONATATE 100 MG CAP PO ×2 (05:45→20:30)
[2018-07-07 07:00] LABS: HEMATOCRIT 31.2 % (36.0-47.0); HEMOGLOBIN 10.7 g/dl (12.0-15.5); MEAN CORPUSCULAR HGB CONC 34.3 g/dl (32.0-36.5); MEAN CORPUSCULAR VOLUME 90.4 fl (80.0-96.0); PLATELET COUNT, AUTOMATED 210 10^3/uL (150-450); RED BLOOD COUNT 3.45 10^6/uL (4.00-5.40); RED CELL DISTRIBUTION WIDTH 16.3 % (11.5-14.5); WHITE BLOOD COUNT 4.6 10^3/uL (4.0-10.0)
[2018-07-07 07:31] LABS: ALBUMIN 2.5 GM/DL (3.2-5.2); ALKALINE PHOSPHATASE 76 U/L (45-117); ALT/SGPT 25 U/L (12-78); ANION GAP 10 MEQ/L (8-16); AST/SGOT 19 U/L (7-37); BILIRUBIN,TOTAL 0.3 MG/DL (0.2-1.0); BLOOD UREA NITROGEN 15 MG/DL (7-18); CALCIUM LEVEL 8.7 MG/DL (8.5-10.1); CARBON DIOXIDE LEVEL 28 MEQ/L (21-32); CHLORIDE LEVEL 97 MEQ/L (98-107); CREATININE FOR GFR 0.74 MG/DL (0.55-1.30); GLOMERULAR FILTRATION RATE > 60.0 (>51); GLUCOSE, FASTING 84 MG/DL (70-100); POTASSIUM SERUM 3.4 MEQ/L (3.5-5.1); SODIUM LEVEL 135 MEQ/L (136-145); TOTAL PROTEIN 7.1 GM/DL (6.4-8.2)
[2018-07-07 08:32] LABS: ALBUMIN/GLOBULIN RATIO 1.84 (1.00-1.93)
[2018-07-07] MEDS: levETIRAcetam 250MG TABLET (KEPPRA) PO ×2 (09:25→20:30)
[2018-07-07] MEDS: DIVALPROEX 500 MG TAB PO ×3 (09:25→20:30)
[2018-07-07] MEDS: OMEPRAZOLE 20 MG CAP PO (09:26)
[2018-07-07] MEDS: CitaloPRAM (CeleXA) 20 MG TAB PO (09:26)
[2018-07-07] MEDS: carBAMazepine 200 MG TAB PO ×3 (09:27→20:30)
[2018-07-07] MEDS: NYSTATIN 100,000 UNITS/GM TOPICAL PWD 15 GM TOP ×3 (09:27→20:31)
[2018-07-07] MEDS: POTASSIUM CHLORIDE 10 MEQ SR TABLET PO (09:27)
[2018-07-07] MEDS: CETIRIZINE (ZyrTEC) 10 MG TAB PO (20:31)
[2018-07-07] MEDS: guaiFENesin DM LIQ 10ML UD PO (22:49)
[2018-07-08] MEDS: LEVOTHYROXINE 112MCG TABLET (0.112MG) PO (05:48)
[2018-07-08] MEDS: HEPARIN SOD (PORCINE) 5000 UNITS/ML VIAL SQ ×3 (05:48→22:33)
[2018-07-08] MEDS: BENZONATATE 100 MG CAP PO ×2 (05:48→18:55)
[2018-07-08] MEDS: LevoFLOXacin 750 MG TABLET PO (05:49)
[2018-07-08 06:43] LABS: HEMATOCRIT 31.2 % (36.0-47.0); HEMOGLOBIN 10.5 g/dl (12.0-15.5); MEAN CORPUSCULAR HEMOGLOBIN 31.3 pg (27.0-33.0); MEAN CORPUSCULAR HGB CONC 33.7 g/dl (32.0-36.5); MEAN CORPUSCULAR VOLUME 93.1 fl (80.0-96.0); PLATELET COUNT, AUTOMATED 201 10^3/uL (150-450); RED BLOOD COUNT 3.35 10^6/uL (4.00-5.40); RED CELL DISTRIBUTION WIDTH 16.2 % (11.5-14.5); WHITE BLOOD COUNT 4.2 10^3/uL (4.0-10.0)
[2018-07-08 07:12] LABS: ALBUMIN 2.4 GM/DL (3.2-5.2); ALBUMIN/GLOBULIN RATIO 0.53 (1.00-1.93); ALKALINE PHOSPHATASE 77 U/L (45-117); ALT/SGPT 24 U/L (12-78); ANION GAP 8 MEQ/L (8-16); AST/SGOT 21 U/L (7-37); BILIRUBIN,TOTAL 0.3 MG/DL (0.2-1.0); BLOOD UREA NITROGEN 17 MG/DL (7-18); CALCIUM LEVEL 8.7 MG/DL (8.5-10.1); CARBON DIOXIDE LEVEL 29 MEQ/L (21-32); CHLORIDE LEVEL 94 MEQ/L (98-107); CREATININE FOR GFR 0.68 MG/DL (0.55-1.30); GLOMERULAR FILTRATION RATE > 60.0 (>51); GLUCOSE, FASTING 87 MG/DL (70-100); POTASSIUM SERUM 3.6 MEQ/L (3.5-5.1); SODIUM LEVEL 131 MEQ/L (136-145); TOTAL PROTEIN 6.9 GM/DL (6.4-8.2)
[2018-07-08] MEDS: POTASSIUM CHLORIDE 10 MEQ SR TABLET PO (09:15)
[2018-07-08] MEDS: levETIRAcetam 250MG TABLET (KEPPRA) PO ×2 (09:15→20:06)
[2018-07-08] MEDS: CitaloPRAM (CeleXA) 20 MG TAB PO (09:16)
[2018-07-08] MEDS: carBAMazepine 200 MG TAB PO ×3 (09:16→20:06)
[2018-07-08] MEDS: OMEPRAZOLE 20 MG CAP PO (09:16)
[2018-07-08] MEDS: BISACODYL 5 MG TAB PO (09:16)
[2018-07-08] MEDS: DIVALPROEX 500 MG TAB PO ×3 (09:16→20:07)
[2018-07-08] MEDS: NYSTATIN 100,000 UNITS/GM TOPICAL PWD 15 GM TOP ×3 (09:16→20:07)
[2018-07-08] MEDS: guaiFENesin DM LIQ 10ML UD PO (20:05)
[2018-07-08] MEDS: CETIRIZINE (ZyrTEC) 10 MG TAB PO (20:06)
[2018-07-09] MEDS: guaiFENesin DM LIQ 10ML UD PO ×2 (01:00→16:01)
[2018-07-09] MEDS: **hydrALAZINE** 10 MG TAB PO (01:02)
[2018-07-09] MEDS: LEVOTHYROXINE 112MCG TABLET (0.112MG) PO (06:24)
[2018-07-09] MEDS: HEPARIN SOD (PORCINE) 5000 UNITS/ML VIAL SQ ×3 (06:25→21:09)
[2018-07-09] MEDS: NYSTATIN 100,000 UNITS/GM TOPICAL PWD 15 GM TOP ×3 (09:00→21:10)
[2018-07-09] MEDS: OMEPRAZOLE 20 MG CAP PO (10:10)
[2018-07-09] MEDS: CitaloPRAM (CeleXA) 20 MG TAB PO (10:10)
[2018-07-09] MEDS: DIVALPROEX 500 MG TAB PO ×3 (10:11→21:09)
[2018-07-09] MEDS: levETIRAcetam 250MG TABLET (KEPPRA) PO ×2 (10:11→21:10)
[2018-07-09] MEDS: POTASSIUM CHLORIDE 10 MEQ SR TABLET PO (10:14)
[2018-07-09] MEDS: FUROSEMIDE 40 MG TAB PO (10:14)
[2018-07-09] MEDS: amLODIPine 5 MG TAB PO (10:14)
[2018-07-09] MEDS: carBAMazepine 200 MG TAB PO ×3 (10:15→21:10)
[2018-07-09] MEDS: CETIRIZINE (ZyrTEC) 10 MG TAB PO (21:09)
[2018-07-09] MEDS: SENOKOT S TAB PO (21:09)
[2018-07-10] MEDS: guaiFENesin DM LIQ 10ML UD PO ×2 (00:14→23:19)
[2018-07-10] MEDS: BENZONATATE 100 MG CAP PO ×3 (00:28→23:19)
[2018-07-10] MEDS: HEPARIN SOD (PORCINE) 5000 UNITS/ML VIAL SQ ×3 (05:56→21:32)
[2018-07-10] MEDS: LEVOTHYROXINE 112MCG TABLET (0.112MG) PO (05:56)
[2018-07-10 06:25] LABS: HEMATOCRIT 29.7 % (36.0-47.0); HEMOGLOBIN 10.2 g/dl (12.0-15.5); MEAN CORPUSCULAR HEMOGLOBIN 31.6 pg (27.0-33.0); MEAN CORPUSCULAR HGB CONC 34.3 g/dl (32.0-36.5); PLATELET COUNT, AUTOMATED 194 10^3/uL (150-450); RED BLOOD COUNT 3.23 10^6/uL (4.00-5.40); RED CELL DISTRIBUTION WIDTH 16.4 % (11.5-14.5); WHITE BLOOD COUNT 3.9 10^3/uL (4.0-10.0)
[2018-07-10 06:27] LABS: ADD MANUAL DIFFER YES; DIFF SLIDE NUMBER 63; POS COUNT POS FLAG; POSITIVE MORPH POS FLAG
[2018-07-10 06:39] LABS: ANION GAP 7 MEQ/L (8-16); BLOOD UREA NITROGEN 24 MG/DL (7-18); CALCIUM LEVEL 8.6 MG/DL (8.5-10.1); CARBON DIOXIDE LEVEL 27 MEQ/L (21-32); CHLORIDE LEVEL 97 MEQ/L (98-107); CREATININE FOR GFR 0.79 MG/DL (0.55-1.30); GLOMERULAR FILTRATION RATE > 60.0 (>51); GLUCOSE, FASTING 94 MG/DL (70-100); POTASSIUM SERUM 3.9 MEQ/L (3.5-5.1); SODIUM LEVEL 131 MEQ/L (136-145)
[2018-07-10 07:04] LABS: ATYPICAL LYMPH 24 % (0-5); BANDS 3 % (< 11); EOSINOPHILS 1 % (0-5); LYMPHOCYTES 23 % (16-52); METAMYELOCYTES 1 % (0-0); MONOCYTES 12 % (0-8); NEUTROPHILS 36 % (35-75); PLATELET ESTIMATE NORMAL (NORMAL)
[2018-07-10 07:05] LABS: OVALOCYTES 1+
[2018-07-10 07:06] LABS: ACANTHOCYTES 1+
[2018-07-10] MEDS: MIRALAX *UNIT DOSE* 17GM PACKET PO (09:11)
[2018-07-10] MEDS: levETIRAcetam 250MG TABLET (KEPPRA) PO ×2 (09:11→21:32)
[2018-07-10] MEDS: DIVALPROEX 500 MG TAB PO ×3 (09:12→21:32)
[2018-07-10] MEDS: POTASSIUM CHLORIDE 10 MEQ SR TABLET PO (09:12)
[2018-07-10] MEDS: SENOKOT S TAB PO ×2 (09:12→21:32)
[2018-07-10] MEDS: carBAMazepine 200 MG TAB PO ×3 (09:13→21:33)
[2018-07-10] MEDS: OMEPRAZOLE 20 MG CAP PO (09:13)
[2018-07-10] MEDS: amLODIPine 5 MG TAB PO (09:14)
[2018-07-10] MEDS: FUROSEMIDE 40 MG TAB PO (09:14)
[2018-07-10] MEDS: CitaloPRAM (CeleXA) 20 MG TAB PO (09:14)
[2018-07-10] MEDS: NYSTATIN 100,000 UNITS/GM TOPICAL PWD 15 GM TOP ×3 (09:15→21:34)
[2018-07-10 20:13] LABS: REASON FOR REVIEW ATYPICAL LYMPHS; SLIDE REVIEW Report; SOURCE PERIPHERAL SMEAR
[2018-07-10] MEDS: CETIRIZINE (ZyrTEC) 10 MG TAB PO (21:33)
[2018-07-11] MEDS: LEVOTHYROXINE 112MCG TABLET (0.112MG) PO (05:43)
[2018-07-11] MEDS: HEPARIN SOD (PORCINE) 5000 UNITS/ML VIAL SQ ×3 (05:43→20:00)
[2018-07-11 06:20] LABS: BASO % 0.5 % (0.0-1.0); EOS # 0.1 10^3/uL (0.0-0.50); EOS % 1.2 % (0.0-3.0); HEMATOCRIT 28.8 % (36.0-47.0); HEMOGLOBIN 9.8 g/dl (12.0-15.5); IMMATURE GRANULOCYTE % 4.6 % (0-3.0); LYMPH # 1.8 10^3/uL (1.5-4.5); LYMPH % 43.8 % (24.0-44.0); MEAN CORPUSCULAR HEMOGLOBIN 31.6 pg (27.0-33.0); MEAN CORPUSCULAR VOLUME 92.9 fl (80.0-96.0); MONO # 0.7 10^3/uL (0.0-0.8); MONO % 17.1 % (0.0-5.0); NEUTROPHILS # 1.3 10^3/uL (1.8-7.7); NEUTROPHILS % 32.8 % (36.0-66.0); PLATELET COUNT, AUTOMATED 179 10^3/uL (150-450); RED CELL DISTRIBUTION WIDTH 16.8 % (11.5-14.5); WHITE BLOOD COUNT 4.1 10^3/uL (4.0-10.0)
[2018-07-11 06:43] LABS: ANION GAP 6 MEQ/L (8-16); BLOOD UREA NITROGEN 29 MG/DL (7-18); CALCIUM LEVEL 8.6 MG/DL (8.5-10.1); CARBON DIOXIDE LEVEL 29 MEQ/L (21-32); CHLORIDE LEVEL 99 MEQ/L (98-107); CREATININE FOR GFR 0.94 MG/DL (0.55-1.30); GLOMERULAR FILTRATION RATE > 60.0 (>51); GLUCOSE, FASTING 99 MG/DL (70-100); SODIUM LEVEL 134 MEQ/L (136-145)
[2018-07-11] MEDS: MIRALAX *UNIT DOSE* 17GM PACKET PO (09:38)
[2018-07-11] MEDS: DIVALPROEX 500 MG TAB PO ×3 (09:39→20:00)
[2018-07-11] MEDS: POTASSIUM CHLORIDE 10 MEQ SR TABLET PO (09:42)
[2018-07-11] MEDS: amLODIPine 5 MG TAB PO (09:42)
[2018-07-11] MEDS: carBAMazepine 200 MG TAB PO ×3 (09:42→19:59)
[2018-07-11] MEDS: CitaloPRAM (CeleXA) 20 MG TAB PO (09:43)
[2018-07-11] MEDS: SENOKOT S TAB PO ×2 (09:43→19:59)
[2018-07-11] MEDS: FUROSEMIDE 40 MG TAB PO (09:43)
[2018-07-11] MEDS: OMEPRAZOLE 20 MG CAP PO (09:43)
[2018-07-11] MEDS: levETIRAcetam 250MG TABLET (KEPPRA) PO ×2 (09:43→20:00)
[2018-07-11] MEDS: NYSTATIN 100,000 UNITS/GM TOPICAL PWD 15 GM TOP ×3 (09:44→20:01)
[2018-07-11] MEDS: CETIRIZINE (ZyrTEC) 10 MG TAB PO (19:59)
[2018-07-11] MEDS: BENZONATATE 100 MG CAP PO (19:59)
[2018-07-11] MEDS: guaiFENesin DM LIQ 10ML UD PO (19:59)
[2018-07-12] MEDS: HEPARIN SOD (PORCINE) 5000 UNITS/ML VIAL SQ ×3 (05:31→23:03)
[2018-07-12] MEDS: LEVOTHYROXINE 112MCG TABLET (0.112MG) PO (05:31)
[2018-07-12 06:11] LABS: HEMOGLOBIN 9.6 g/dl (12.0-15.5); MEAN CORPUSCULAR HEMOGLOBIN 31.6 pg (27.0-33.0); MEAN CORPUSCULAR HGB CONC 33.1 g/dl (32.0-36.5); MEAN CORPUSCULAR VOLUME 95.4 fl (80.0-96.0); PLATELET COUNT, AUTOMATED 177 10^3/uL (150-450); RED BLOOD COUNT 3.04 10^6/uL (4.00-5.40); RED CELL DISTRIBUTION WIDTH 16.9 % (11.5-14.5); WHITE BLOOD COUNT 3.9 10^3/uL (4.0-10.0)
[2018-07-12 06:20] LABS: ADD MANUAL DIFFER YES; DIFF SLIDE NUMBER 28; POSITIVE MORPH POS FLAG
[2018-07-12 06:29] LABS: ANION GAP 7 MEQ/L (8-16); BLOOD UREA NITROGEN 29 MG/DL (7-18); CALCIUM LEVEL 8.7 MG/DL (8.5-10.1); CARBON DIOXIDE LEVEL 27 MEQ/L (21-32); CHLORIDE LEVEL 100 MEQ/L (98-107); GLOMERULAR FILTRATION RATE > 60.0 (>51); GLUCOSE, FASTING 97 MG/DL (70-100); POTASSIUM SERUM 3.8 MEQ/L (3.5-5.1); SODIUM LEVEL 134 MEQ/L (136-145)
[2018-07-12 06:49] LABS: ANISOCYTOSIS 1+; ATYPICAL LYMPH 8 % (0-5); EOSINOPHILS 3 % (0-5); LYMPHOCYTES 43 % (16-52); MONOCYTES 11 % (0-8); MYELOCYTES 1 % (0-0); NEUTROPHILS 34 % (35-75); PLATELET ESTIMATE NORMAL (NORMAL)
[2018-07-12] MEDS: MIRALAX *UNIT DOSE* 17GM PACKET PO (09:00)
[2018-07-12] MEDS: carBAMazepine 200 MG TAB PO ×3 (09:39→20:35)
[2018-07-12] MEDS: SENOKOT S TAB PO ×2 (09:39→20:34)
[2018-07-12] MEDS: DIVALPROEX 500 MG TAB PO ×3 (09:39→20:35)
[2018-07-12] MEDS: FUROSEMIDE 40 MG TAB PO (09:39)
[2018-07-12] MEDS: levETIRAcetam 250MG TABLET (KEPPRA) PO ×2 (09:39→20:37)
[2018-07-12] MEDS: POTASSIUM CHLORIDE 10 MEQ SR TABLET PO (09:40)
[2018-07-12] MEDS: NYSTATIN 100,000 UNITS/GM TOPICAL PWD 15 GM TOP ×3 (09:40→20:38)
[2018-07-12] MEDS: CitaloPRAM (CeleXA) 20 MG TAB PO (09:40)
[2018-07-12] MEDS: OMEPRAZOLE 20 MG CAP PO (09:40)
[2018-07-12] MEDS: BENZONATATE 100 MG CAP PO ×2 (09:40→20:34)
[2018-07-12] MEDS: amLODIPine 5 MG TAB PO (09:42)
[2018-07-12] MEDS: CETIRIZINE (ZyrTEC) 10 MG TAB PO (20:37)
[2018-07-13] MEDS: guaiFENesin DM LIQ 10ML UD PO (02:14)
[2018-07-13 05:55] LABS: BASO % 0.9 % (0.0-1.0); EOS # 0.1 10^3/uL (0.0-0.50); EOS % 2.3 % (0.0-3.0); HEMATOCRIT 29.9 % (36.0-47.0); HEMOGLOBIN 9.9 g/dl (12.0-15.5); IMMATURE GRANULOCYTE % 2.9 % (0-3.0); LYMPH # 1.7 10^3/uL (1.5-4.5); MEAN CORPUSCULAR HEMOGLOBIN 31.2 pg (27.0-33.0); MEAN CORPUSCULAR HGB CONC 33.1 g/dl (32.0-36.5); MEAN CORPUSCULAR VOLUME 94.3 fl (80.0-96.0); MONO # 0.5 10^3/uL (0.0-0.8); MONO % 15.5 % (0.0-5.0); NEUTROPHILS # 1.1 10^3/uL (1.8-7.7); NEUTROPHILS % 30.4 % (36.0-66.0); PLATELET COUNT, AUTOMATED 160 10^3/uL (150-450); RED BLOOD COUNT 3.17 10^6/uL (4.00-5.40); RED CELL DISTRIBUTION WIDTH 17.2 % (11.5-14.5); WHITE BLOOD COUNT 3.5 10^3/uL (4.0-10.0)
[2018-07-13] MEDS: LEVOTHYROXINE 112MCG TABLET (0.112MG) PO (06:00)
[2018-07-13] MEDS: HEPARIN SOD (PORCINE) 5000 UNITS/ML VIAL SQ ×3 (06:00→22:04)
[2018-07-13 06:17] LABS: ANION GAP 10 MEQ/L (8-16); BLOOD UREA NITROGEN 25 MG/DL (7-18); CALCIUM LEVEL 8.8 MG/DL (8.5-10.1); CARBON DIOXIDE LEVEL 27 MEQ/L (21-32); CHLORIDE LEVEL 103 MEQ/L (98-107); CREATININE FOR GFR 0.84 MG/DL (0.55-1.30); GLOMERULAR FILTRATION RATE > 60.0 (>51); GLUCOSE, FASTING 93 MG/DL (70-100); POTASSIUM SERUM 4.1 MEQ/L (3.5-5.1); SODIUM LEVEL 140 MEQ/L (136-145)
[2018-07-13] MEDS: OMEPRAZOLE 20 MG CAP PO (08:48)
[2018-07-13] MEDS: POTASSIUM CHLORIDE 10 MEQ SR TABLET PO (08:48)
[2018-07-13] MEDS: CitaloPRAM (CeleXA) 20 MG TAB PO (08:48)
[2018-07-13] MEDS: carBAMazepine 200 MG TAB PO ×3 (08:48→20:06)
[2018-07-13] MEDS: DIVALPROEX 500 MG TAB PO ×3 (08:49→20:08)
[2018-07-13] MEDS: SENOKOT S TAB PO ×2 (08:49→20:06)
[2018-07-13] MEDS: FUROSEMIDE 40 MG TAB PO (08:49)
[2018-07-13] MEDS: levETIRAcetam 250MG TABLET (KEPPRA) PO ×2 (08:49→20:06)
[2018-07-13] MEDS: MIRALAX *UNIT DOSE* 17GM PACKET PO (08:49)
[2018-07-13] MEDS: NYSTATIN 100,000 UNITS/GM TOPICAL PWD 15 GM TOP ×3 (08:50→22:04)
[2018-07-13] MEDS: amLODIPine 5 MG TAB PO (08:51)
[2018-07-13] MEDS: BENZONATATE 100 MG CAP PO (14:09)
[2018-07-13] MEDS: CETIRIZINE (ZyrTEC) 10 MG TAB PO (20:06)
[2018-07-14] MEDS: HEPARIN SOD (PORCINE) 5000 UNITS/ML VIAL SQ ×3 (05:48→20:49)
[2018-07-14] MEDS: LEVOTHYROXINE 112MCG TABLET (0.112MG) PO (05:48)
[2018-07-14 05:49] LABS: HEMATOCRIT 29.1 % (36.0-47.0); HEMOGLOBIN 9.5 g/dl (12.0-15.5); MEAN CORPUSCULAR HEMOGLOBIN 31.3 pg (27.0-33.0); MEAN CORPUSCULAR HGB CONC 32.6 g/dl (32.0-36.5); MEAN CORPUSCULAR VOLUME 95.7 fl (80.0-96.0); PLATELET COUNT, AUTOMATED 155 10^3/uL (150-450); RED BLOOD COUNT 3.04 10^6/uL (4.00-5.40)
[2018-07-14 05:54] LABS: ADD MANUAL DIFFER YES; POSITIVE MORPH POS FLAG
[2018-07-14 05:55] LABS: DIFF SLIDE NUMBER 15
[2018-07-14 06:08] LABS: ANION GAP 10 MEQ/L (8-16); BLOOD UREA NITROGEN 28 MG/DL (7-18); CALCIUM LEVEL 8.4 MG/DL (8.5-10.1); CARBON DIOXIDE LEVEL 27 MEQ/L (21-32); CHLORIDE LEVEL 104 MEQ/L (98-107); CREATININE FOR GFR 0.87 MG/DL (0.55-1.30); FERRITIN 38 NG/ML (8-252); GLOMERULAR FILTRATION RATE > 60.0 (>51); GLUCOSE, FASTING 95 MG/DL (70-100); IRON (FE) 88 UG/DL (50-170); PERCENT SATURATION 26.7 % (13.2-45.0); POTASSIUM SERUM 4.2 MEQ/L (3.5-5.1); SODIUM LEVEL 141 MEQ/L (136-145); TOTAL IRON BINDING CAPACITY 330 UG/DL (250-450)
[2018-07-14 07:44] LABS: ATYPICAL LYMPH 2 % (0-5); BASOPHILS 1 % (0-4); EOSINOPHILS 1 % (0-5); LYMPHOCYTES 46 % (16-52); MONOCYTES 14 % (0-8); MYELOCYTES 1 % (0-0); NEUTROPHILS 35 % (35-75); PLATELET ESTIMATE NORMAL (NORMAL)
[2018-07-14 07:45] LABS: ANISOCYTOSIS 1+
[2018-07-14] MEDS: OMEPRAZOLE 20 MG CAP PO (08:29)
[2018-07-14] MEDS: levETIRAcetam 250MG TABLET (KEPPRA) PO ×2 (08:29→20:49)
[2018-07-14] MEDS: MIRALAX *UNIT DOSE* 17GM PACKET PO (08:29)
[2018-07-14] MEDS: CitaloPRAM (CeleXA) 20 MG TAB PO (08:29)
[2018-07-14] MEDS: FUROSEMIDE 40 MG TAB PO (08:30)
[2018-07-14] MEDS: SENOKOT S TAB PO ×2 (08:30→20:48)
[2018-07-14] MEDS: carBAMazepine 200 MG TAB PO ×3 (08:30→20:49)
[2018-07-14] MEDS: POTASSIUM CHLORIDE 10 MEQ SR TABLET PO (08:30)
[2018-07-14] MEDS: DIVALPROEX 500 MG TAB PO ×3 (08:31→20:48)
[2018-07-14] MEDS: amLODIPine 5 MG TAB PO (08:31)
[2018-07-14] MEDS: NYSTATIN 100,000 UNITS/GM TOPICAL PWD 15 GM TOP ×3 (09:00→20:48)
[2018-07-14 10:27] LABS: FOLATE 2.7 NG/ML (>5.4)
[2018-07-14] MEDS: CETIRIZINE (ZyrTEC) 10 MG TAB PO (20:48)
[2018-07-15] MEDS: LEVOTHYROXINE 112MCG TABLET (0.112MG) PO (05:30)
[2018-07-15] MEDS: HEPARIN SOD (PORCINE) 5000 UNITS/ML VIAL SQ (05:30)
[2018-07-15 06:19] LABS: HEMATOCRIT 28.7 % (36.0-47.0); HEMOGLOBIN 9.6 g/dl (12.0-15.5); MEAN CORPUSCULAR HEMOGLOBIN 32.2 pg (27.0-33.0); MEAN CORPUSCULAR HGB CONC 33.4 g/dl (32.0-36.5); MEAN CORPUSCULAR VOLUME 96.3 fl (80.0-96.0); PLATELET COUNT, AUTOMATED 173 10^3/uL (150-450); RED BLOOD COUNT 2.98 10^6/uL (4.00-5.40); RED CELL DISTRIBUTION WIDTH 17.2 % (11.5-14.5); WHITE BLOOD COUNT 4.2 10^3/uL (4.0-10.0)
[2018-07-15 06:22] LABS: ADD MANUAL DIFFER YES; DIFF SLIDE NUMBER 11; POSITIVE MORPH POS FLAG
[2018-07-15 06:33] LABS: ANION GAP 10 MEQ/L (8-16); BLOOD UREA NITROGEN 28 MG/DL (7-18); CALCIUM LEVEL 8.6 MG/DL (8.5-10.1); CARBON DIOXIDE LEVEL 26 MEQ/L (21-32); CHLORIDE LEVEL 103 MEQ/L (98-107); CREATININE FOR GFR 0.85 MG/DL (0.55-1.30); GLOMERULAR FILTRATION RATE > 60.0 (>51); GLUCOSE, FASTING 93 MG/DL (70-100); POTASSIUM SERUM 4.2 MEQ/L (3.5-5.1); SODIUM LEVEL 139 MEQ/L (136-145)
[2018-07-15 08:10] LABS: LYMPHOCYTES 51 % (16-52); MONOCYTES 9 % (0-8); NEUTROPHILS 40 % (35-75)
[2018-07-15 08:11] LABS: HYPOCHROMASIA 2+; PLATELET ESTIMATE NORMAL (NORMAL)
[2018-07-15] MEDS: DIVALPROEX 500 MG TAB PO ×2 (08:44→12:48)
[2018-07-15] MEDS: POTASSIUM CHLORIDE 10 MEQ SR TABLET PO (08:44)
[2018-07-15] MEDS: carBAMazepine 200 MG TAB PO ×2 (08:45→12:48)
[2018-07-15] MEDS: CitaloPRAM (CeleXA) 20 MG TAB PO (08:45)
[2018-07-15] MEDS: levETIRAcetam 250MG TABLET (KEPPRA) PO (08:45)
[2018-07-15] MEDS: SENOKOT S TAB PO (08:45)
[2018-07-15] MEDS: FUROSEMIDE 40 MG TAB PO (08:45)
[2018-07-15] MEDS: MIRALAX *UNIT DOSE* 17GM PACKET PO (08:46)
[2018-07-15] MEDS: amLODIPine 5 MG TAB PO (08:46)
[2018-07-15] MEDS: NYSTATIN 100,000 UNITS/GM TOPICAL PWD 15 GM TOP (08:46)
[2018-07-15] MEDS: OMEPRAZOLE 20 MG CAP PO (08:46)
== END 2018-07-15 14:54 | disposition home health service (06) | DRG 565 ==
LOC: M MSPAV 07-09 12:45 → M ED 09:22 → M ED INP 12:52 → M MSPAV 15:52
DX: T79.6XXA Traumatic ischemia of muscle, initial encounter (principal); Z68.43 Body mass index [BMI] 50.0-59.9, adult; E87.1 Hypo-osmolality and hyponatremia; N39.0 Urinary tract infection, site not specified; E66.01 Morbid (severe) obesity due to excess calories; G40.909 Epilepsy, unspecified, not intractable, without status epilepticus; K21.9 Gastro-esophageal reflux disease without esophagitis; E03.9 Hypothyroidism, unspecified; F32.9 Major depressive disorder, single episode, unspecified; W18.30XA Fall on same level, unspecified, initial encounter; Y92.009 Unspecified place in unspecified non-institutional (private) residence as the place of occurrence of the external cause; F70 Mild intellectual disabilities; F41.9 Anxiety disorder, unspecified; Z79.899 Other long term (current) drug therapy; Z88.0 Allergy status to penicillin; Z88.2 Allergy status to sulfonamides; Z88.5 Allergy status to narcotic agent; Z88.8 Allergy status to other drugs, medicaments and biological substances; B96.1 Klebsiella pneumoniae [K. pneumoniae] as the cause of diseases classified elsewhere; I11.9 Hypertensive heart disease without heart failure; D64.9 Anemia, unspecified

== ENCOUNTER 2018-07-15 19:20 | Observation (INO) | payer MEDICARE, MEDICAID ==
[2018-07-15 20:07] LABS: BASO % 0.6 % (0.0-1.0); EOS # 0.1 10^3/uL (0.0-0.50); EOS % 2.1 % (0.0-3.0); HEMATOCRIT 31.4 % (36.0-47.0); HEMOGLOBIN 10.4 g/dl (12.0-15.5); IMMATURE GRANULOCYTE % 1.4 % (0-3.0); MEAN CORPUSCULAR HEMOGLOBIN 31.9 pg (27.0-33.0); MEAN CORPUSCULAR HGB CONC 33.1 g/dl (32.0-36.5); MEAN CORPUSCULAR VOLUME 96.3 fl (80.0-96.0); MONO # 0.7 10^3/uL (0.0-0.8); MONO % 13.4 % (0.0-5.0); NEUTROPHILS % 41.5 % (36.0-66.0); PLATELET COUNT, AUTOMATED 200 10^3/uL (150-450); RED BLOOD COUNT 3.26 10^6/uL (4.00-5.40); RED CELL DISTRIBUTION WIDTH 17.4 % (11.5-14.5); WHITE BLOOD COUNT 4.9 10^3/uL (4.0-10.0)
[2018-07-15 20:43] LABS: ALBUMIN/GLOBULIN RATIO 0.79 (1.00-1.93); ALKALINE PHOSPHATASE 72 U/L (45-117); ALT/SGPT 23 U/L (12-78); ANION GAP 11 MEQ/L (8-16); AST/SGOT 16 U/L (7-37); BILIRUBIN,DIRECT 0.1 MG/DL (0.0-0.2); BILIRUBIN,TOTAL 0.2 MG/DL (0.2-1.0); BLOOD UREA NITROGEN 28 MG/DL (7-18); CARBON DIOXIDE LEVEL 25 MEQ/L (21-32); CHLORIDE LEVEL 104 MEQ/L (98-107); CPK CREATINE PHOSPHOKINASE 83 U/L (26-192); GLOMERULAR FILTRATION RATE > 60.0 (>51); GLUCOSE, FASTING 92 MG/DL (70-100); MB/CK RELATIVE INDEX 3.13 (< OR =4); POTASSIUM SERUM 4.1 MEQ/L (3.5-5.1); SODIUM LEVEL 140 MEQ/L (136-145); TOTAL PROTEIN 6.8 GM/DL (6.4-8.2); TROPONIN I < 0.02 NG/ML (< 0.10)
[2018-07-15 22:57] LABS: KETONE, URINE AUTO RFX TRACE mg/dL (NEGATIVE); LEUKOCYTE ESTERASE UR AUTO RFX NEGATIVE (NEGATIVE); NITRITE, URINE AUTO RFX NEGATIVE (NEGATIVE); RBC, URINE AUTO RFX 1 /HPF (0-3); SPECIFIC GRAVITY UR AUTO RFX 1.023 (1.002-1.035); SQUAM EPITHELIAL CELL UR AURFX 2 /HPF (0-6); WBC, URINE AUTO RFX 2 /HPF (0-3)
[2018-07-16] MEDS ORDERED: FLUTICASONE PROP 0.05% NASAL SPRAY 16 GM (FLONASE) ×3 (03:00)
[2018-07-16] MEDS ORDERED: ACETAMINOPHEN TAB 650MG DOSE (2X325MG) PO ×3 (03:45)
[2018-07-16] MEDS: LEVOTHYROXINE 112MCG TABLET (0.112MG) PO ×3 (05:30)
[2018-07-16] MEDS: MIRALAX *UNIT DOSE* 17GM PACKET PO ×3 (09:20)
[2018-07-16] MEDS: DIVALPROEX 500 MG TAB PO ×9 (09:21→20:29)
[2018-07-16] MEDS: levETIRAcetam 250MG TABLET (KEPPRA) PO ×6 (09:22→20:30)
[2018-07-16] MEDS: carBAMazepine 200 MG TAB PO ×9 (09:22→20:29)
[2018-07-16] MEDS: OMEPRAZOLE 20 MG CAP PO ×3 (09:22)
[2018-07-16] MEDS: SENOKOT S TAB PO ×6 (09:23→20:30)
[2018-07-16] MEDS: POTASSIUM CHLORIDE 10 MEQ SR TABLET PO ×3 (09:23)
[2018-07-16] MEDS: FUROSEMIDE 40 MG TAB PO ×3 (09:23)
[2018-07-16] MEDS: CitaloPRAM (CeleXA) 20 MG TAB PO ×3 (20:30)
[2018-07-17] MEDS: LEVOTHYROXINE 112MCG TABLET (0.112MG) PO ×3 (05:29)
[2018-07-17] MEDS: MIRALAX *UNIT DOSE* 17GM PACKET PO ×3 (09:00)
[2018-07-17] MEDS: DIVALPROEX 500 MG TAB PO ×6 (09:23→12:45)
[2018-07-17] MEDS: INFLUENZA QUADRIVALENT PF VACCINE 0.5ML SYRINGE (90686) IM ×3 (09:23)
[2018-07-17] MEDS: carBAMazepine 200 MG TAB PO ×6 (09:23→12:44)
[2018-07-17] MEDS: FUROSEMIDE 40 MG TAB PO ×3 (09:24)
[2018-07-17] MEDS: POTASSIUM CHLORIDE 10 MEQ SR TABLET PO ×3 (09:24)
[2018-07-17] MEDS: levETIRAcetam 250MG TABLET (KEPPRA) PO ×3 (09:24)
[2018-07-17] MEDS: SENOKOT S TAB PO ×3 (09:24)
[2018-07-17] MEDS: OMEPRAZOLE 20 MG CAP PO ×3 (09:24)
== END 2018-07-17 14:03 | disposition home or self-care (01) ==
LOC: M ED INP 07-16 02:45 → M MSPAV 07-16 04:40 → M ED INP 19:21 → M MSPAV 07-16 04:40 → M ED 19:20
DX: F70 Mild intellectual disabilities (principal); G40.909 Epilepsy, unspecified, not intractable, without status epilepticus; F32.9 Major depressive disorder, single episode, unspecified; E03.9 Hypothyroidism, unspecified; K21.9 Gastro-esophageal reflux disease without esophagitis; J30.2 Other seasonal allergic rhinitis; Z79.899 Other long term (current) drug therapy; Z88.0 Allergy status to penicillin; Z88.2 Allergy status to sulfonamides; Z88.5 Allergy status to narcotic agent; I10 Essential (primary) hypertension; I50.30 Unspecified diastolic (congestive) heart failure
CPT/HCPCS: 90686

== ENCOUNTER 2018-07-24 12:06 | Inpatient (IN) | payer MEDICARE, MEDICAID ==
[2018-07-24 13:18] LABS: HEMATOCRIT 30.2 % (36.0-47.0); HEMOGLOBIN 10.4 g/dl (12.0-15.5); MEAN CORPUSCULAR HEMOGLOBIN 32.9 pg (27.0-33.0); MEAN CORPUSCULAR HGB CONC 34.4 g/dl (32.0-36.5); MEAN CORPUSCULAR VOLUME 95.6 fl (80.0-96.0); PLATELET COUNT, AUTOMATED 140 10^3/uL (150-450); RED BLOOD COUNT 3.16 10^6/uL (4.00-5.40); RED CELL DISTRIBUTION WIDTH 17.4 % (11.5-14.5); WHITE BLOOD COUNT 4.9 10^3/uL (4.0-10.0)
[2018-07-24 13:50] LABS: CARBAMAZEPINE (TEGRETOL) LEVEL 12.4 UG/ML (4.0-10.0)
[2018-07-24 13:52] LABS: ALBUMIN/GLOBULIN RATIO 0.81 (1.00-1.93); ALKALINE PHOSPHATASE 75 U/L (45-117); ALT/SGPT 21 U/L (12-78); ANION GAP 11 MEQ/L (8-16); AST/SGOT 18 U/L (7-37); BILIRUBIN,DIRECT 0.2 MG/DL (0.0-0.2); BILIRUBIN,TOTAL 0.3 MG/DL (0.2-1.0); BLOOD UREA NITROGEN 21 MG/DL (7-18); CALCIUM LEVEL 8.9 MG/DL (8.5-10.1); CARBON DIOXIDE LEVEL 24 MEQ/L (21-32); CHLORIDE LEVEL 94 MEQ/L (98-107); CREATININE FOR GFR 0.98 MG/DL (0.55-1.30); GLOMERULAR FILTRATION RATE > 60.0 (>51); GLUCOSE, FASTING 99 MG/DL (70-100); POTASSIUM SERUM 4.2 MEQ/L (3.5-5.1); SODIUM LEVEL 129 MEQ/L (136-145); TOTAL PROTEIN 6.7 GM/DL (6.4-8.2)
[2018-07-24 14:57] LABS: CPK CREATINE PHOSPHOKINASE 79 U/L (26-192); MB/CK RELATIVE INDEX 2.15 (< OR =4); TROPONIN I < 0.02 NG/ML (< 0.10)
[2018-07-24] MEDS: NS 1,000 ML IV (15:08)
[2018-07-24] MEDS ORDERED: SENOKOT S TAB PO (15:30)
[2018-07-24] MEDS ORDERED: FLUTICASONE PROP 0.05% NASAL SPRAY 16 GM (FLONASE) (15:30)
[2018-07-24] MEDS ORDERED: MIRALAX *UNIT DOSE* 17GM PACKET PO (15:30)
[2018-07-24 19:36] LABS: ANION GAP 10 MEQ/L (8-16); BLOOD UREA NITROGEN 20 MG/DL (7-18); CALCIUM LEVEL 8.8 MG/DL (8.5-10.1); CARBON DIOXIDE LEVEL 26 MEQ/L (21-32); CHLORIDE LEVEL 96 MEQ/L (98-107); CPK CREATINE PHOSPHOKINASE 78 U/L (26-192); CREATININE FOR GFR 0.88 MG/DL (0.55-1.30); FREE THYROXINE INDEX 2.2 % (1.3-4.8); GLOMERULAR FILTRATION RATE > 60.0 (>51); GLUCOSE, FASTING 97 MG/DL (70-100); MB/CK RELATIVE INDEX 2.05 (< OR =4); POTASSIUM SERUM 4.3 MEQ/L (3.5-5.1); SODIUM LEVEL 132 MEQ/L (136-145); T UPTAKE 34 % (30-39); THYROXINE (T4) 6.4 UG/DL (4.5-12.0); TROPONIN I < 0.02 NG/ML (< 0.10); VALPROIC ACID (DEPAKOTE) 71.6 UG/ML (50.0-100.0)
[2018-07-24] MEDS: levETIRAcetam 250MG TABLET (KEPPRA) PO (21:11)
[2018-07-24] MEDS: CitaloPRAM (CeleXA) 20 MG TAB PO (21:11)
[2018-07-24] MEDS: HEPARIN SOD (PORCINE) 5000 UNITS/ML VIAL SC (21:12)
[2018-07-24] MEDS: DIVALPROEX 500 MG TAB PO (21:12)
[2018-07-25] MEDS ORDERED: SLF 3 ML SYR IV
[2018-07-25 02:57] LABS: ANION GAP 10 MEQ/L (8-16); BLOOD UREA NITROGEN 19 MG/DL (7-18); CALCIUM LEVEL 8.3 MG/DL (8.5-10.1); CARBON DIOXIDE LEVEL 25 MEQ/L (21-32); CHLORIDE LEVEL 98 MEQ/L (98-107); CPK CREATINE PHOSPHOKINASE 55 U/L (26-192); GLOMERULAR FILTRATION RATE > 60.0 (>51); GLUCOSE, FASTING 100 MG/DL (70-100); MB/CK RELATIVE INDEX 2.55 (< OR =4); SODIUM LEVEL 133 MEQ/L (136-145); TROPONIN I < 0.02 NG/ML (< 0.10)
[2018-07-25 05:10] LABS: BASO % 0.3 % (0.0-1.0); EOS # 0.1 10^3/uL (0.0-0.50); EOS % 1.8 % (0.0-3.0); HEMATOCRIT 27.4 % (36.0-47.0); HEMOGLOBIN 9.2 g/dl (12.0-15.5); IMMATURE GRANULOCYTE % 1.6 % (0-3.0); LYMPH # 1.2 10^3/uL (1.5-4.5); LYMPH % 31.1 % (24.0-44.0); MEAN CORPUSCULAR HEMOGLOBIN 32.5 pg (27.0-33.0); MEAN CORPUSCULAR HGB CONC 33.6 g/dl (32.0-36.5); MEAN CORPUSCULAR VOLUME 96.8 fl (80.0-96.0); MONO # 0.7 10^3/uL (0.0-0.8); MONO % 17.2 % (0.0-5.0); NEUTROPHILS # 1.8 10^3/uL (1.8-7.7); PLATELET COUNT, AUTOMATED 120 10^3/uL (150-450); RED BLOOD COUNT 2.83 10^6/uL (4.00-5.40); RED CELL DISTRIBUTION WIDTH 17.6 % (11.5-14.5); WHITE BLOOD COUNT 3.8 10^3/uL (4.0-10.0)
[2018-07-25 05:37] LABS: CARBAMAZEPINE (TEGRETOL) LEVEL 8.3 UG/ML (4.0-10.0)
[2018-07-25 05:40] LABS: ALBUMIN 2.5 GM/DL (3.2-5.2); ALBUMIN/GLOBULIN RATIO 0.74 (1.00-1.93); ALKALINE PHOSPHATASE 67 U/L (45-117); ALT/SGPT 17 U/L (12-78); ANION GAP 9 MEQ/L (8-16); AST/SGOT 16 U/L (7-37); BILIRUBIN,TOTAL 0.2 MG/DL (0.2-1.0); BLOOD UREA NITROGEN 19 MG/DL (7-18); CALCIUM LEVEL 8.4 MG/DL (8.5-10.1); CARBON DIOXIDE LEVEL 25 MEQ/L (21-32); CHLORIDE LEVEL 98 MEQ/L (98-107); CREATININE FOR GFR 0.75 MG/DL (0.55-1.30); GLOMERULAR FILTRATION RATE > 60.0 (>51); GLUCOSE, FASTING 93 MG/DL (70-100); MAGNESIUM LEVEL 2.4 MG/DL (1.8-2.4); POTASSIUM SERUM 4.1 MEQ/L (3.5-5.1); SODIUM LEVEL 132 MEQ/L (136-145); TOTAL PROTEIN 5.9 GM/DL (6.4-8.2); VALPROIC ACID (DEPAKOTE) 73.4 UG/ML (50.0-100.0)
[2018-07-25] MEDS: SLF 3 ML SYR IV ×3 (05:41→21:24)
[2018-07-25] MEDS: LEVOTHYROXINE 112MCG TABLET (0.112MG) PO (06:08)
[2018-07-25] MEDS: levETIRAcetam 250MG TABLET (KEPPRA) PO ×2 (08:59→21:23)
[2018-07-25] MEDS: OMEPRAZOLE 20 MG CAP PO (08:59)
[2018-07-25] MEDS: HEPARIN SOD (PORCINE) 5000 UNITS/ML VIAL SC ×2 (08:59→21:23)
[2018-07-25] MEDS: DIVALPROEX 500 MG TAB PO ×3 (09:00→21:24)
[2018-07-25] MEDS: POTASSIUM CHLORIDE 10 MEQ SR TABLET PO (09:00)
[2018-07-25] MEDS: FUROSEMIDE 40 MG TAB PO (09:00)
[2018-07-25 10:58] LABS: ANION GAP 10 MEQ/L (8-16); BLOOD UREA NITROGEN 16 MG/DL (7-18); CALCIUM LEVEL 8.3 MG/DL (8.5-10.1); CARBON DIOXIDE LEVEL 24 MEQ/L (21-32); CHLORIDE LEVEL 102 MEQ/L (98-107); CREATININE FOR GFR 0.75 MG/DL (0.55-1.30); GLOMERULAR FILTRATION RATE > 60.0 (>51); GLUCOSE, FASTING 99 MG/DL (70-100); POTASSIUM SERUM 4.2 MEQ/L (3.5-5.1); SODIUM LEVEL 136 MEQ/L (136-145)
[2018-07-25 11:02] LABS: CPK CREATINE PHOSPHOKINASE 62 U/L (26-192); TROPONIN I < 0.02 NG/ML (< 0.10)
[2018-07-25 18:07] LABS: OSMOLALITY URINE 206 MOSM/KG (500-800)
[2018-07-25 18:12] LABS: CHLORIDE,RANDOM URINE 36 MEQ/L; CREATININE,RANDOM URINE 37.7 MG/DL; POTASSIUM RANDOM URINE 19.4 MEQ/L; SODIUM,RANDOM URINE 16 MEQ/L; TOTAL PROTEIN,RANDOM URINE 9.4 MG/DL (0.0-12.0)
[2018-07-25 18:37] LABS: BLOOD UREA NITROGEN 17 MG/DL (7-18); CREATININE FOR GFR 0.88 MG/DL (0.55-1.30); GLUCOSE, FASTING 107 MG/DL (70-100)
[2018-07-25 18:38] LABS: ANION GAP 8 MEQ/L (8-16); CALCIUM LEVEL 8.4 MG/DL (8.5-10.1); CARBON DIOXIDE LEVEL 25 MEQ/L (21-32); CHLORIDE LEVEL 104 MEQ/L (98-107); GLOMERULAR FILTRATION RATE > 60.0 (>51); POTASSIUM SERUM 4.6 MEQ/L (3.5-5.1); SODIUM LEVEL 137 MEQ/L (136-145)
[2018-07-25 19:28] LABS: URIC ACID,RANDOM URINE 17.3 MG/DL
[2018-07-25] MEDS: CitaloPRAM (CeleXA) 20 MG TAB PO (21:24)
[2018-07-26 00:29] LABS: ANION GAP 6 MEQ/L (8-16); BLOOD UREA NITROGEN 18 MG/DL (7-18); CALCIUM LEVEL 7.8 MG/DL (8.5-10.1); CARBON DIOXIDE LEVEL 26 MEQ/L (21-32); CHLORIDE LEVEL 104 MEQ/L (98-107); CREATININE FOR GFR 0.86 MG/DL (0.55-1.30); GLOMERULAR FILTRATION RATE > 60.0 (>51); GLUCOSE, FASTING 95 MG/DL (70-100); POTASSIUM SERUM 4.5 MEQ/L (3.5-5.1); SODIUM LEVEL 136 MEQ/L (136-145)
[2018-07-26] MEDS: SLF 3 ML SYR IV ×3 (05:46→22:00)
[2018-07-26] MEDS: LEVOTHYROXINE 112MCG TABLET (0.112MG) PO (05:46)
[2018-07-26 06:36] LABS: BASO % 0.5 % (0.0-1.0); EOS # 0.1 10^3/uL (0.0-0.50); EOS % 3.5 % (0.0-3.0); HEMATOCRIT 27.8 % (36.0-47.0); HEMOGLOBIN 9.1 g/dl (12.0-15.5); IMMATURE GRANULOCYTE % 1.5 % (0-3.0); LYMPH # 1.5 10^3/uL (1.5-4.5); LYMPH % 38.3 % (24.0-44.0); MEAN CORPUSCULAR HEMOGLOBIN 32.5 pg (27.0-33.0); MEAN CORPUSCULAR HGB CONC 32.7 g/dl (32.0-36.5); MEAN CORPUSCULAR VOLUME 99.3 fl (80.0-96.0); MONO # 0.7 10^3/uL (0.0-0.8); MONO % 18.1 % (0.0-5.0); NEUTROPHILS # 1.5 10^3/uL (1.8-7.7); NEUTROPHILS % 38.1 % (36.0-66.0); PLATELET COUNT, AUTOMATED 111 10^3/uL (150-450); RED CELL DISTRIBUTION WIDTH 18.2 % (11.5-14.5)
[2018-07-26 06:50] LABS: ANION GAP 9 MEQ/L (8-16); AST/SGOT 17 U/L (7-37); BLOOD UREA NITROGEN 19 MG/DL (7-18); CALCIUM LEVEL 8.4 MG/DL (8.5-10.1); CARBON DIOXIDE LEVEL 25 MEQ/L (21-32); CHLORIDE LEVEL 105 MEQ/L (98-107); CREATININE FOR GFR 0.83 MG/DL (0.55-1.30); GLOMERULAR FILTRATION RATE > 60.0 (>51); GLUCOSE, FASTING 91 MG/DL (70-100); POTASSIUM SERUM 4.4 MEQ/L (3.5-5.1); SODIUM LEVEL 139 MEQ/L (136-145)
[2018-07-26 06:51] LABS: ALBUMIN 2.3 GM/DL (3.2-5.2); ALBUMIN/GLOBULIN RATIO 0.66 (1.00-1.93); ALKALINE PHOSPHATASE 59 U/L (45-117); ALT/SGPT 15 U/L (12-78); BILIRUBIN,TOTAL 0.1 MG/DL (0.2-1.0); CARBAMAZEPINE (TEGRETOL) LEVEL 4.9 UG/ML (4.0-10.0); MAGNESIUM LEVEL 2.4 MG/DL (1.8-2.4); TOTAL PROTEIN 5.8 GM/DL (6.4-8.2); VALPROIC ACID (DEPAKOTE) 73.8 UG/ML (50.0-100.0)
[2018-07-26] MEDS: levETIRAcetam 250MG TABLET (KEPPRA) PO ×2 (08:17→20:10)
[2018-07-26] MEDS: DIVALPROEX 500 MG TAB PO ×3 (08:17→20:09)
[2018-07-26] MEDS: FUROSEMIDE 40 MG TAB PO (08:17)
[2018-07-26] MEDS: HEPARIN SOD (PORCINE) 5000 UNITS/ML VIAL SC ×2 (08:17→20:09)
[2018-07-26] MEDS: OMEPRAZOLE 20 MG CAP PO (08:17)
[2018-07-26] MEDS: POTASSIUM CHLORIDE 10 MEQ SR TABLET PO (08:18)
[2018-07-26 12:03] LABS: ANION GAP 6 MEQ/L (8-16); BLOOD UREA NITROGEN 16 MG/DL (7-18); CALCIUM LEVEL 8.3 MG/DL (8.5-10.1); CARBON DIOXIDE LEVEL 28 MEQ/L (21-32); CHLORIDE LEVEL 105 MEQ/L (98-107); CREATININE FOR GFR 0.89 MG/DL (0.55-1.30); GLOMERULAR FILTRATION RATE > 60.0 (>51); GLUCOSE, FASTING 91 MG/DL (70-100); POTASSIUM SERUM 4.6 MEQ/L (3.5-5.1); SODIUM LEVEL 139 MEQ/L (136-145)
[2018-07-26] MEDS: ACETAMINOPHEN TAB 650MG DOSE (2X325MG) PO (20:10)
[2018-07-26] MEDS: CitaloPRAM (CeleXA) 20 MG TAB PO (20:10)
[2018-07-27] MEDS: LEVOTHYROXINE 112MCG TABLET (0.112MG) PO (06:14)
[2018-07-27] MEDS: SLF 3 ML SYR IV ×3 (06:15→22:00)
[2018-07-27 07:26] LABS: BASO % 0.5 % (0.0-1.0); EOS # 0.2 10^3/uL (0.0-0.50); EOS % 3.9 % (0.0-3.0); HEMATOCRIT 28.7 % (36.0-47.0); HEMOGLOBIN 9.5 g/dl (12.0-15.5); IMMATURE GRANULOCYTE % 1.2 % (0-3.0); LYMPH # 1.6 10^3/uL (1.5-4.5); LYMPH % 37.5 % (24.0-44.0); MEAN CORPUSCULAR HEMOGLOBIN 32.6 pg (27.0-33.0); MEAN CORPUSCULAR HGB CONC 33.1 g/dl (32.0-36.5); MEAN CORPUSCULAR VOLUME 98.6 fl (80.0-96.0); MONO # 0.7 10^3/uL (0.0-0.8); NEUTROPHILS # 1.8 10^3/uL (1.8-7.7); NEUTROPHILS % 40.9 % (36.0-66.0); PLATELET COUNT, AUTOMATED 105 10^3/uL (150-450); RED BLOOD COUNT 2.91 10^6/uL (4.00-5.40); RED CELL DISTRIBUTION WIDTH 18.3 % (11.5-14.5); WHITE BLOOD COUNT 4.3 10^3/uL (4.0-10.0)
[2018-07-27 07:54] LABS: ALBUMIN 2.3 GM/DL (3.2-5.2); ALBUMIN/GLOBULIN RATIO 0.68 (1.00-1.93); ALKALINE PHOSPHATASE 56 U/L (45-117); ALT/SGPT 14 U/L (12-78); ANION GAP 7 MEQ/L (8-16); AST/SGOT 13 U/L (7-37); BILIRUBIN,TOTAL 0.2 MG/DL (0.2-1.0); BLOOD UREA NITROGEN 16 MG/DL (7-18); CALCIUM LEVEL 8.6 MG/DL (8.5-10.1); CARBAMAZEPINE (TEGRETOL) LEVEL 3.2 UG/ML (4.0-10.0); CARBON DIOXIDE LEVEL 27 MEQ/L (21-32); CHLORIDE LEVEL 109 MEQ/L (98-107); CREATININE FOR GFR 0.68 MG/DL (0.55-1.30); GLOMERULAR FILTRATION RATE > 60.0 (>51); GLUCOSE, FASTING 85 MG/DL (70-100); MAGNESIUM LEVEL 2.2 MG/DL (1.8-2.4); POTASSIUM SERUM 4.4 MEQ/L (3.5-5.1); SODIUM LEVEL 143 MEQ/L (136-145); TOTAL PROTEIN 5.7 GM/DL (6.4-8.2)
[2018-07-27] MEDS: OMEPRAZOLE 20 MG CAP PO (09:24)
[2018-07-27] MEDS: DIVALPROEX 500 MG TAB PO ×3 (09:24→22:01)
[2018-07-27] MEDS: levETIRAcetam 250MG TABLET (KEPPRA) PO ×2 (09:24→22:00)
[2018-07-27] MEDS: HEPARIN SOD (PORCINE) 5000 UNITS/ML VIAL SC ×2 (09:25→22:01)
[2018-07-27] MEDS: POTASSIUM CHLORIDE 10 MEQ SR TABLET PO (09:25)
[2018-07-27] MEDS: FUROSEMIDE 40 MG TAB PO (09:25)
[2018-07-27] MEDS: CitaloPRAM (CeleXA) 20 MG TAB PO (22:00)
[2018-07-28 00:07] LABS: LEVETIRACETAM (KEPPRA) 28.7 ug/mL (10.0-40.0)
[2018-07-28] MEDS: LEVOTHYROXINE 112MCG TABLET (0.112MG) PO (05:36)
[2018-07-28] MEDS: SLF 3 ML SYR IV ×3 (05:36→20:08)
[2018-07-28] MEDS: OMEPRAZOLE 20 MG CAP PO (09:53)
[2018-07-28] MEDS: DIVALPROEX 500 MG TAB PO ×3 (09:54→20:08)
[2018-07-28] MEDS: levETIRAcetam 250MG TABLET (KEPPRA) PO ×2 (09:54→20:07)
[2018-07-28] MEDS: POTASSIUM CHLORIDE 10 MEQ SR TABLET PO (09:55)
[2018-07-28] MEDS: FUROSEMIDE 40 MG TAB PO (09:55)
[2018-07-28 09:57] LABS: BASO % 0.5 % (0.0-1.0); EOS # 0.1 10^3/uL (0.0-0.50); HEMATOCRIT 28.3 % (36.0-47.0); HEMOGLOBIN 9.3 g/dl (12.0-15.5); IMMATURE GRANULOCYTE % 0.9 % (0-3.0); LYMPH # 1.3 10^3/uL (1.5-4.5); LYMPH % 30.9 % (24.0-44.0); MEAN CORPUSCULAR HEMOGLOBIN 32.3 pg (27.0-33.0); MEAN CORPUSCULAR HGB CONC 32.9 g/dl (32.0-36.5); MEAN CORPUSCULAR VOLUME 98.3 fl (80.0-96.0); MONO # 0.7 10^3/uL (0.0-0.8); MONO % 15.9 % (0.0-5.0); NEUTROPHILS # 2.1 10^3/uL (1.8-7.7); NEUTROPHILS % 48.8 % (36.0-66.0); PLATELET COUNT, AUTOMATED 106 10^3/uL (150-450); RED BLOOD COUNT 2.88 10^6/uL (4.00-5.40); RED CELL DISTRIBUTION WIDTH 18.2 % (11.5-14.5); WHITE BLOOD COUNT 4.3 10^3/uL (4.0-10.0)
[2018-07-28] MEDS: HEPARIN SOD (PORCINE) 5000 UNITS/ML VIAL SC ×2 (10:45→20:08)
[2018-07-28] MEDS: carBAMazepine 200 MG TAB PO ×2 (12:37→20:08)
[2018-07-28] MEDS: CitaloPRAM (CeleXA) 20 MG TAB PO (20:07)
[2018-07-28] MEDS: NYSTATIN 100,000 UNITS/GM TOPICAL PWD 15 GM TOP (20:09)
[2018-07-28 21:02] LABS: ALBUMIN 2.5 GM/DL (3.2-5.2); ALBUMIN/GLOBULIN RATIO 0.76 (1.00-1.93); ALKALINE PHOSPHATASE 61 U/L (45-117); ALT/SGPT 17 U/L (12-78); ANION GAP 8 MEQ/L (8-16); AST/SGOT 15 U/L (7-37); BILIRUBIN,TOTAL 0.2 MG/DL (0.2-1.0); BLOOD UREA NITROGEN 16 MG/DL (7-18); CALCIUM LEVEL 8.5 MG/DL (8.5-10.1); CARBAMAZEPINE (TEGRETOL) LEVEL 2.3 UG/ML (4.0-10.0); CARBON DIOXIDE LEVEL 28 MEQ/L (21-32); CHLORIDE LEVEL 106 MEQ/L (98-107); CREATININE FOR GFR 0.71 MG/DL (0.55-1.30); GLOMERULAR FILTRATION RATE > 60.0 (>51); GLUCOSE, FASTING 96 MG/DL (70-100); POTASSIUM SERUM 4.3 MEQ/L (3.5-5.1); SODIUM LEVEL 142 MEQ/L (136-145); TOTAL PROTEIN 5.8 GM/DL (6.4-8.2)
[2018-07-29] MEDS: LEVOTHYROXINE 112MCG TABLET (0.112MG) PO (05:19)
[2018-07-29] MEDS: SLF 3 ML SYR IV ×3 (05:19→21:02)
[2018-07-29 06:02] LABS: BASO % 0.4 % (0.0-1.0); EOS # 0.2 10^3/uL (0.0-0.50); EOS % 3.5 % (0.0-3.0); HEMATOCRIT 28.2 % (36.0-47.0); HEMOGLOBIN 9.5 g/dl (12.0-15.5); IMMATURE GRANULOCYTE % 0.8 % (0-3.0); LYMPH # 1.8 10^3/uL (1.5-4.5); LYMPH % 36.8 % (24.0-44.0); MEAN CORPUSCULAR HEMOGLOBIN 32.2 pg (27.0-33.0); MEAN CORPUSCULAR HGB CONC 33.7 g/dl (32.0-36.5); MEAN CORPUSCULAR VOLUME 95.6 fl (80.0-96.0); MONO # 0.8 10^3/uL (0.0-0.8); MONO % 17.1 % (0.0-5.0); NEUTROPHILS % 41.4 % (36.0-66.0); PLATELET COUNT, AUTOMATED 107 10^3/uL (150-450); RED BLOOD COUNT 2.95 10^6/uL (4.00-5.40); RED CELL DISTRIBUTION WIDTH 17.2 % (11.5-14.5); WHITE BLOOD COUNT 4.9 10^3/uL (4.0-10.0)
[2018-07-29 06:26] LABS: ALBUMIN 2.4 GM/DL (3.2-5.2); ALBUMIN/GLOBULIN RATIO 0.62 (1.00-1.93); ALKALINE PHOSPHATASE 61 U/L (45-117); ALT/SGPT 15 U/L (12-78); ANION GAP 8 MEQ/L (8-16); AST/SGOT 13 U/L (7-37); BILIRUBIN,TOTAL 0.2 MG/DL (0.2-1.0); BLOOD UREA NITROGEN 18 MG/DL (7-18); CALCIUM LEVEL 8.6 MG/DL (8.5-10.1); CARBAMAZEPINE (TEGRETOL) LEVEL 7.7 UG/ML (4.0-10.0); CARBON DIOXIDE LEVEL 27 MEQ/L (21-32); CHLORIDE LEVEL 102 MEQ/L (98-107); CREATININE FOR GFR 0.73 MG/DL (0.55-1.30); GLOMERULAR FILTRATION RATE > 60.0 (>51); GLUCOSE, FASTING 83 MG/DL (70-100); MAGNESIUM LEVEL 1.8 MG/DL (1.8-2.4); POTASSIUM SERUM 4.5 MEQ/L (3.5-5.1); SODIUM LEVEL 137 MEQ/L (136-145); TOTAL PROTEIN 6.3 GM/DL (6.4-8.2)
[2018-07-29] MEDS: OMEPRAZOLE 20 MG CAP PO (09:38)
[2018-07-29] MEDS: POTASSIUM CHLORIDE 10 MEQ SR TABLET PO (09:39)
[2018-07-29] MEDS: carBAMazepine 200 MG TAB PO ×3 (09:40→21:01)
[2018-07-29] MEDS: DIVALPROEX 500 MG TAB PO ×3 (09:40→21:03)
[2018-07-29] MEDS: levETIRAcetam 250MG TABLET (KEPPRA) PO ×2 (09:41→21:02)
[2018-07-29] MEDS: FUROSEMIDE 40 MG TAB PO (09:41)
[2018-07-29] MEDS: HEPARIN SOD (PORCINE) 5000 UNITS/ML VIAL SC ×2 (09:42→21:02)
[2018-07-29] MEDS: CitaloPRAM (CeleXA) 20 MG TAB PO (21:02)
[2018-07-30] MEDS: LEVOTHYROXINE 112MCG TABLET (0.112MG) PO (06:00)
[2018-07-30] MEDS: SLF 3 ML SYR IV ×2 (06:00→15:07)
[2018-07-30 06:42] LABS: BASO % 0.4 % (0.0-1.0); EOS # 0.1 10^3/uL (0.0-0.50); EOS % 2.9 % (0.0-3.0); HEMATOCRIT 28.2 % (36.0-47.0); HEMOGLOBIN 9.4 g/dl (12.0-15.5); LYMPH # 1.8 10^3/uL (1.5-4.5); LYMPH % 37.5 % (24.0-44.0); MEAN CORPUSCULAR HEMOGLOBIN 32.3 pg (27.0-33.0); MEAN CORPUSCULAR HGB CONC 33.3 g/dl (32.0-36.5); MEAN CORPUSCULAR VOLUME 96.9 fl (80.0-96.0); MONO # 0.9 10^3/uL (0.0-0.8); MONO % 17.9 % (0.0-5.0); NEUTROPHILS % 40.3 % (36.0-66.0); PLATELET COUNT, AUTOMATED 101 10^3/uL (150-450); RED BLOOD COUNT 2.91 10^6/uL (4.00-5.40); RED CELL DISTRIBUTION WIDTH 17.4 % (11.5-14.5); WHITE BLOOD COUNT 4.9 10^3/uL (4.0-10.0)
[2018-07-30 07:03] LABS: ALBUMIN 2.3 GM/DL (3.2-5.2); ALBUMIN/GLOBULIN RATIO 0.56 (1.00-1.93); ALKALINE PHOSPHATASE 61 U/L (45-117); ALT/SGPT 13 U/L (12-78); ANION GAP 9 MEQ/L (8-16); AST/SGOT 13 U/L (7-37); BILIRUBIN,TOTAL 0.2 MG/DL (0.2-1.0); BLOOD UREA NITROGEN 22 MG/DL (7-18); CALCIUM LEVEL 8.4 MG/DL (8.5-10.1); CARBAMAZEPINE (TEGRETOL) LEVEL 12.3 UG/ML (4.0-10.0); CARBON DIOXIDE LEVEL 27 MEQ/L (21-32); CHLORIDE LEVEL 102 MEQ/L (98-107); CREATININE FOR GFR 0.81 MG/DL (0.55-1.30); GLOMERULAR FILTRATION RATE > 60.0 (>51); GLUCOSE, FASTING 81 MG/DL (70-100); MAGNESIUM LEVEL 1.9 MG/DL (1.8-2.4); POTASSIUM SERUM 4.5 MEQ/L (3.5-5.1); SODIUM LEVEL 138 MEQ/L (136-145); TOTAL PROTEIN 6.4 GM/DL (6.4-8.2)
[2018-07-30] MEDS: FUROSEMIDE 40 MG TAB PO (08:15)
[2018-07-30] MEDS: levETIRAcetam 250MG TABLET (KEPPRA) PO (08:15)
[2018-07-30] MEDS: OMEPRAZOLE 20 MG CAP PO (08:16)
[2018-07-30] MEDS: POTASSIUM CHLORIDE 10 MEQ SR TABLET PO (08:16)
[2018-07-30] MEDS: carBAMazepine 200 MG TAB PO ×2 (08:17→14:13)
[2018-07-30] MEDS: DIVALPROEX 500 MG TAB PO ×2 (08:17→12:13)
[2018-07-30] MEDS: HEPARIN SOD (PORCINE) 5000 UNITS/ML VIAL SC (08:18)
[2018-07-30 12:16] LABS: BEDSIDE GLUCOSE 85 MG/DL (70-105)
== END 2018-07-30 15:10 | disposition home health service (06) | DRG 556 ==
LOC: M MS5PR 07-25 19:46 → M ED 12:06 → M ED INP 16:14 → M PCU 17:52
DX: M62.81 Muscle weakness (generalized) (principal); I50.32 Chronic diastolic (congestive) heart failure; Z68.43 Body mass index [BMI] 50.0-59.9, adult; E22.2 Syndrome of inappropriate secretion of antidiuretic hormone; I11.0 Hypertensive heart disease with heart failure; E66.01 Morbid (severe) obesity due to excess calories; F70 Mild intellectual disabilities; E03.9 Hypothyroidism, unspecified; K21.9 Gastro-esophageal reflux disease without esophagitis; G40.909 Epilepsy, unspecified, not intractable, without status epilepticus; R29.6 Repeated falls; F32.9 Major depressive disorder, single episode, unspecified; Z79.899 Other long term (current) drug therapy; Z88.2 Allergy status to sulfonamides; Z88.0 Allergy status to penicillin; Z88.5 Allergy status to narcotic agent; Z88.8 Allergy status to other drugs, medicaments and biological substances

== ENCOUNTER → 2018-08-04 | Outpatient (REF) | payer MEDICARE, MEDICAID ==
[2018-08-04 13:49] LABS: CARBAMAZEPINE (TEGRETOL) LEVEL 9.5 UG/ML (4.0-10.0)
== END ==
LOC: M LABDRAWP 12:08
DX: Z79.899 Other long term (current) drug therapy (principal)
CPT/HCPCS: 80156

== ENCOUNTER → 2018-09-10 | Outpatient (REF) | payer MEDICARE, MEDICAID ==
[2018-09-10 11:42] LABS: HEMATOCRIT 34.6 % (36.0-47.0); HEMOGLOBIN 11.1 g/dl (12.0-15.5); MEAN CORPUSCULAR HEMOGLOBIN 33.2 pg (27.0-33.0); MEAN CORPUSCULAR HGB CONC 32.1 g/dl (32.0-36.5); MEAN CORPUSCULAR VOLUME 103.6 fl (80.0-96.0); PLATELET COUNT, AUTOMATED 178 10^3/uL (150-450); RED BLOOD COUNT 3.34 10^6/uL (4.00-5.40); RED CELL DISTRIBUTION WIDTH 17.2 % (11.5-14.5); WHITE BLOOD COUNT 5.3 10^3/uL (4.0-10.0)
[2018-09-10 11:54] LABS: ALBUMIN 2.7 GM/DL (3.2-5.2); ALBUMIN/GLOBULIN RATIO 0.64 (1.00-1.93); ALKALINE PHOSPHATASE 79 U/L (45-117); ALT/SGPT 13 U/L (12-78); ANION GAP 10 MEQ/L (8-16); AST/SGOT 8 U/L (7-37); BILIRUBIN,TOTAL 0.2 MG/DL (0.2-1.0); BLOOD UREA NITROGEN 18 MG/DL (7-18); CALCIUM LEVEL 8.5 MG/DL (8.5-10.1); CARBON DIOXIDE LEVEL 25 MEQ/L (21-32); CHLORIDE LEVEL 103 MEQ/L (98-107); CHOLESTEROL LEVEL 243 MG/DL (<200); CHOLESTEROL RISK RATIO 5.785 (<5); CREATININE FOR GFR 0.79 MG/DL (0.55-1.30); GLOMERULAR FILTRATION RATE > 60.0 (>51); GLUCOSE, FASTING 100 MG/DL (70-100); HDL CHOLESTEROL 42 MG/DL (>40); LDL CHOLESTEROL 144 MG/DL (<100); NON-HDL-C 201 MG/DL; POTASSIUM SERUM 4.6 MEQ/L (3.5-5.1); SODIUM LEVEL 138 MEQ/L (136-145); TOTAL PROTEIN 6.9 GM/DL (6.4-8.2); TRIGLYCERIDES LEVEL 286 MG/DL (<150)
== END ==
LOC: M SFHCPLAZ 07:58
DX: Z51.81 Encounter for therapeutic drug level monitoring (principal); E78.00 Pure hypercholesterolemia, unspecified; Z79.899 Other long term (current) drug therapy; E87.1 Hypo-osmolality and hyponatremia; E03.9 Hypothyroidism, unspecified
CPT/HCPCS: 84443

== ENCOUNTER → 2018-09-30 | Outpatient (CLI) | payer MEDICARE, MEDICAID ==
[2018-09-30 09:52] LABS: VALPROIC ACID (DEPAKOTE) 67.2 UG/ML (50.0-100.0)
[2018-10-03 00:11] LABS: LEVETIRACETAM (KEPPRA) 7.3 ug/mL (10.0-40.0)
== END ==
LOC: M WUC 08:23
DX: G40.909 Epilepsy, unspecified, not intractable, without status epilepticus (principal)
CPT/HCPCS: 80156

== ENCOUNTER 2018-10-07 09:55 | Emergency (ER) | payer MEDICARE, MEDICAID ==
[2018-10-07 10:25] LABS: BASO % 0.1 % (0.0-1.0); EOS % 0.4 % (0.0-3.0); HEMATOCRIT 29.7 % (36.0-47.0); HEMOGLOBIN 9.8 g/dl (12.0-15.5); IMMATURE GRANULOCYTE % 0.9 % (0-3.0); LYMPH # 0.9 10^3/uL (1.5-4.5); LYMPH % 13.5 % (24.0-44.0); MEAN CORPUSCULAR HEMOGLOBIN 34.4 pg (27.0-33.0); MEAN CORPUSCULAR VOLUME 104.2 fl (80.0-96.0); MONO # 0.9 10^3/uL (0.0-0.8); MONO % 12.9 % (0.0-5.0); NEUTROPHILS % 72.2 % (36.0-66.0); PLATELET COUNT, AUTOMATED 185 10^3/uL (150-450); RED BLOOD COUNT 2.85 10^6/uL (4.00-5.40); RED CELL DISTRIBUTION WIDTH 16.1 % (11.5-14.5); WHITE BLOOD COUNT 6.9 10^3/uL (4.0-10.0)
[2018-10-07 10:34] LABS: INR 1.04; PROTHROMBIN TIME 13.7 SECONDS (12.1-14.4)
[2018-10-07 10:35] LABS: PARTIAL THROMBOPLASTIN TIME 26.3 SECONDS (25.4-37.6)
[2018-10-07 11:09] LABS: ALBUMIN 2.4 GM/DL (3.2-5.2); ALBUMIN/GLOBULIN RATIO 0.51 (1.00-1.93); ALKALINE PHOSPHATASE 76 U/L (45-117); ALT/SGPT 9 U/L (12-78); ANION GAP 7 MEQ/L (8-16); AST/SGOT 8 U/L (7-37); BILIRUBIN,DIRECT < 0.1 MG/DL (0.0-0.2); BILIRUBIN,TOTAL 0.2 MG/DL (0.2-1.0); BLOOD UREA NITROGEN 21 MG/DL (7-18); CALCIUM LEVEL 8.3 MG/DL (8.5-10.1); CARBON DIOXIDE LEVEL 27 MEQ/L (21-32); CHLORIDE LEVEL 103 MEQ/L (98-107); CPK CREATINE PHOSPHOKINASE 82 U/L (26-192); FREE T4 0.79 NG/DL (0.76-1.46); GLOMERULAR FILTRATION RATE > 60.0 (>51); GLUCOSE, FASTING 103 MG/DL (70-100); MB/CK RELATIVE INDEX 2.32 (< OR =4); SODIUM LEVEL 137 MEQ/L (136-145); TOTAL PROTEIN 7.1 GM/DL (6.4-8.2); TROPONIN I < 0.02 NG/ML (< 0.10)
[2018-10-07] MEDS: NS 1,000 ML IV (13:07)
[2018-10-07] MEDS ORDERED: ISOVUE-370 76% 100ML VIAL (Q9967) As Ordered (13:07)
[2018-10-07 13:31] LABS: VALPROIC ACID (DEPAKOTE) 91.4 UG/ML (50.0-100.0)
[2018-10-07 13:31] LABS: LIPASE 132 U/L (73-393)
[2018-10-07 13:42] LABS: PREALBUMIN 14.7 MG/DL (20.0-40.0)
[2018-10-10 08:06] LABS: LEVETIRACETAM (KEPPRA) 20.4 ug/mL (10.0-40.0)
== END 2018-10-07 15:01 | disposition home or self-care (01) ==
LOC: M ED 09:55
DX: R26.89 Other abnormalities of gait and mobility (principal); K21.9 Gastro-esophageal reflux disease without esophagitis; E03.9 Hypothyroidism, unspecified; G40.909 Epilepsy, unspecified, not intractable, without status epilepticus; E66.8 Other obesity
CPT/HCPCS: Q9967

== ENCOUNTER → 2018-10-22 | Outpatient (CLI) | payer MEDICARE, MEDICAID ==
[~2018-10-22] MED LIST changes: +CARB1TAB20 PO; +CITA-231 PO; +DIVA500T94 PO; +FLON1SPR; -FLUTICASONE PROP 0.05% NASAL SPRAY 16 GM (FLONASE) NARES; +FURO40TA2 PO; +KLOR10TA76 PO; +LEVE750T5 PO; +OMEP40CA2 PO; +PEG1POW PO; +SENO8.6T10 PO; +SYNT112T2 PO
[2018-10-22 12:13] LABS: BASO % 0.4 % (0.0-1.0); EOS # 0.1 10^3/uL (0.0-0.50); EOS % 1.2 % (0.0-3.0); LYMPH # 1.5 10^3/uL (1.5-4.5); MEAN CORPUSCULAR HEMOGLOBIN 34.4 pg (27.0-33.0); MEAN CORPUSCULAR HGB CONC 33.3 g/dl (32.0-36.5); MEAN CORPUSCULAR VOLUME 103.1 fl (80.0-96.0); MONO # 0.4 10^3/uL (0.0-0.8); MONO % 7.1 % (0.0-5.0); NEUTROPHILS % 61.1 % (36.0-66.0); PLATELET COUNT, AUTOMATED 188 10^3/uL (150-450); WHITE BLOOD COUNT 4.9 10^3/uL (4.0-10.0)
[2018-10-22 12:14] LABS: ALT/SGPT 15 U/L (12-78); BILIRUBIN,TOTAL 0.2 MG/DL (0.2-1.0); BLOOD UREA NITROGEN 16 MG/DL (7-18); CALCIUM LEVEL 8.9 MG/DL (8.5-10.1); CARBAMAZEPINE (TEGRETOL) LEVEL 10.8 UG/ML (4.0-10.0); CARBON DIOXIDE LEVEL 27 MEQ/L (21-32); CHLORIDE LEVEL 99 MEQ/L (98-107); CREATININE FOR GFR 0.68 MG/DL (0.55-1.30); GLOMERULAR FILTRATION RATE > 60.0 (>51); GLUCOSE, FASTING 85 MG/DL (70-100); POTASSIUM SERUM 4.4 MEQ/L (3.5-5.1); SODIUM LEVEL 133 MEQ/L (136-145); TOTAL PROTEIN 6.7 GM/DL (6.4-8.2); VALPROIC ACID (DEPAKOTE) 59.8 UG/ML (50.0-100.0)
== END ==
LOC: M WUC 08:35
PROVIDERS: ATTEND Psychiatry & Neurology Neurology
DX: R56.9 Unspecified convulsions (principal)

== ENCOUNTER → 2019-02-22 | Outpatient (CLI) | payer MEDICARE, MEDICAID ==
[~2019-02-22] MED LIST changes: -CITA-231 PO; +CITA40TA6 PO
[2019-02-22 08:45] LABS: HEMATOCRIT 30.9 % (36.0-47.0); HEMOGLOBIN 10.5 g/dl (12.0-15.5); MEAN CORPUSCULAR HEMOGLOBIN 33.9 pg (27.0-33.0); MEAN CORPUSCULAR VOLUME 99.7 fl (80.0-96.0); PLATELET COUNT, AUTOMATED 215 10^3/uL (150-450); WHITE BLOOD COUNT 5.3 10^3/uL (4.0-10.0)
[2019-02-22 09:15] LABS: ALBUMIN 3.1 GM/DL (3.2-5.2); ALT/SGPT 13 U/L (12-78); BILIRUBIN,TOTAL 0.3 MG/DL (0.2-1.0); BLOOD UREA NITROGEN 15 MG/DL (7-18); CALCIUM LEVEL 8.4 MG/DL (8.5-10.1); CARBON DIOXIDE LEVEL 30 MEQ/L (21-32); CHLORIDE LEVEL 101 MEQ/L (98-107); CHOLESTEROL LEVEL 208 MG/DL (<200); CHOLESTEROL RISK RATIO 3.409 (<5); CREATININE FOR GFR 0.69 MG/DL (0.55-1.30); GLOMERULAR FILTRATION RATE > 60.0 (>51); GLUCOSE, FASTING 83 MG/DL (70-100); HDL CHOLESTEROL 61 MG/DL (>40); LDL CHOLESTEROL 118 MG/DL (<100); NON-HDL-C 147 MG/DL; POTASSIUM SERUM 4.5 MEQ/L (3.5-5.1); SODIUM LEVEL 134 MEQ/L (136-145); TRIGLYCERIDES LEVEL 146 MG/DL (<150)
== END ==
LOC: M LAB 07:22
PROVIDERS: ATTEND Internal Medicine
DX: Z79.899 Other long term (current) drug therapy (principal); G40.909 Epilepsy, unspecified, not intractable, without status epilepticus; E87.1 Hypo-osmolality and hyponatremia; E78.00 Pure hypercholesterolemia, unspecified; E03.9 Hypothyroidism, unspecified

== ENCOUNTER → 2019-06-10 | Outpatient (REF) | payer MEDICARE, MEDICAID ==
[2019-06-12 14:36] LABS: HPV HYBRID CAPTURE II Negative (Negative)
== END ==
LOC: M SFHCWAGY 09:20
PROVIDERS: ATTEND Nurse Practitioner Women's Health
DX: Z12.4 Encounter for screening for malignant neoplasm of cervix (principal); R87.610 Atypical squamous cells of undetermined significance on cytologic smear of cervix (ASC-US)
CPT/HCPCS: 87624; G0101; G0123

== ENCOUNTER → 2019-08-20 | Outpatient (REF) | payer MEDICARE, MEDICAID ==
[~2019-08-20] MED LIST changes: -OMEP40CA2 PO; +OMEP40CA97 PO
[2019-08-20 13:06] LABS: APPEARANCE, URINE CLEAR (CLEAR); BACTERIA, URINE AUTO 1+ (NEGATIVE); BILIRUBIN, URINE AUTO NEGATIVE (NEGATIVE); BLOOD, URINE BLOOD NEGATIVE (NEGATIVE); COLOR, URINE STRAW (YELLOW); GLUCOSE, URINE (UA) AUTO NEGATIVE (NEGATIVE); KETONE, URINE AUTO NEGATIVE (NEGATIVE); LEUKOCYTE ESTERASE, URINE AUTO NEGATIVE (NEGATIVE); NITRITE, URINE AUTO NEGATIVE (NEGATIVE); PROTEIN, URINE AUTO NEGATIVE (NEGATIVE); RBC, URINE AUTO 1 /HPF (0-3); SQUAMOUS EPITHELIAL CELL UR AU 1 /HPF (0-6); UROBILINOGEN, URINE AUTO 0.2 mg/dL (0.0-2.0); WBC, URINE AUTO 0 /HPF (0-3)
[2019-08-20 13:10] LABS: CHOLESTEROL RISK RATIO 2.91 (<5)
[2019-08-20 13:40] LABS: HEMOGLOBIN A1c 5.3 %
== END ==
LOC: M SFHCPLAZ 09:51
PROVIDERS: ATTEND Internal Medicine
DX: E78.00 Pure hypercholesterolemia, unspecified (principal); E66.01 Morbid (severe) obesity due to excess calories; R35.0 Frequency of micturition; E87.1 Hypo-osmolality and hyponatremia; Z79.899 Other long term (current) drug therapy
CPT/HCPCS: 36415; 80061; 81001; 82947; 83036; 87086; 90682; G0008; G0463

== ENCOUNTER → 2019-12-13 | Outpatient (REF) | payer MEDICARE, MEDICAID ==
[2019-12-13 13:09] LABS: BASO % 0.5 % (0.0-1.0); EOS % 0.6 % (0.0-3.0); HEMATOCRIT 34.3 % (36.0-47.0); HEMOGLOBIN 11.5 g/dl (12.0-15.5); LYMPH # 1.8 10^3/uL (1.5-5.0); LYMPH % 28.5 % (24.0-44.0); MEAN CORPUSCULAR HEMOGLOBIN 32.1 pg (27.0-33.0); MEAN CORPUSCULAR HGB CONC 33.5 g/dl (32.0-36.5); MEAN CORPUSCULAR VOLUME 95.8 fl (80.0-96.0); MONO # 0.4 10^3/uL (0.0-0.8); MONO % 6.6 % (0.0-5.0); NEUTROPHILS % 63.5 % (36.0-66.0); PLATELET COUNT, AUTOMATED 238 10^3/uL (150-450); RED BLOOD COUNT 3.58 10^6/uL (4.00-5.40); WHITE BLOOD COUNT 6.2 10^3/uL (4.0-10.0)
[2019-12-13 13:38] LABS: ALBUMIN 3.4 GM/DL (3.2-5.2); ALT/SGPT 15 U/L (12-78); BILIRUBIN,TOTAL 0.1 MG/DL (0.2-1.0); BLOOD UREA NITROGEN 23 MG/DL (7-18); CALCIUM LEVEL 8.7 MG/DL (8.8-10.2); CARBAMAZEPINE (TEGRETOL) LEVEL 11.9 UG/ML (4.0-10.0); CARBON DIOXIDE LEVEL 30 MEQ/L (21-32); CHLORIDE LEVEL 99 MEQ/L (98-107); CREATININE FOR GFR 0.63 MG/DL (0.55-1.30); GLOMERULAR FILTRATION RATE > 60.0 (>45); GLUCOSE, FASTING 81 MG/DL (70-100); SODIUM LEVEL 132 MEQ/L (136-145); TOTAL PROTEIN 7.7 GM/DL (6.4-8.2); VALPROIC ACID (DEPAKOTE) 88.8 UG/ML (50.0-100.0)
== END ==
LOC: M LABNEURO 10:57
PROVIDERS: ATTEND Psychiatry & Neurology Neurology
DX: R56.9 Unspecified convulsions (principal)

== ENCOUNTER → 2020-04-12 | Outpatient (REF) | payer MEDICARE, MEDICAID ==
[2020-04-12 17:00] LABS: ALT/SGPT 16 U/L (12-78); BILIRUBIN,TOTAL 0.2 MG/DL (0.2-1.0); BLOOD UREA NITROGEN 19 MG/DL (7-18); CALCIUM LEVEL 8.5 MG/DL (8.8-10.2); CARBON DIOXIDE LEVEL 29 MEQ/L (21-32); CHLORIDE LEVEL 95 MEQ/L (98-107); CHOLESTEROL LEVEL 174 MG/DL (<200); CHOLESTEROL RISK RATIO 3.163 (<5); GLOMERULAR FILTRATION RATE > 60.0 (>45); GLUCOSE, FASTING 81 MG/DL (70-100); HDL CHOLESTEROL 55 MG/DL (>40); LDL CHOLESTEROL 91 MG/DL (<100); NON-HDL-C 119 MG/DL; POTASSIUM SERUM 4.9 MEQ/L (3.5-5.1); SODIUM LEVEL 129 MEQ/L (136-145); TOTAL PROTEIN 6.6 GM/DL (6.4-8.2); TRIGLYCERIDES LEVEL 142 MG/DL (<150)
== END ==
LOC: M SFHCLERA 10:33
PROVIDERS: ATTEND Internal Medicine
DX: E78.00 Pure hypercholesterolemia, unspecified (principal); E03.9 Hypothyroidism, unspecified

== ENCOUNTER → 2020-08-14 | Outpatient (CLI) | payer MEDICARE, MEDICAID ==
--- NOTE | 2020-08-14 14:41 | REPMRS ---
Patient History The patient states she has not had a clinical breast exam in over a year. Family history of prostate cancer at age 50 or over in father, colorectal cancer in sister. No Hormone Replacement Therapy 3D TOMOSYNTHESIS WAS PERFORMED. [facility] lifetime risk for breast cancer is 8.9%. JORGE Martinez Digital Woman Screen Mammo: August 14, 2020 - Exam #: [id number] Bilateral CC and MLO view(s) were taken. Technologist: Heide Herrmann, Technologist Prior study comparison: March 15, 2019, bilateral digital woman screen mammo performed at [facility]. December 27, 2016, digital woman screen mammo performed at [facility]. FINDINGS: The breast tissue is heterogeneously dense. This may lower the sensitivity of mammography. There has been no change in the appearance of the mammogram from the prior studies. There is a moderate amount of residual fibroglandular tissue which is fairly symmetric. There is no interval development of dominant mass, areas of architectural distortion, or clustered microcalcification typical of malignancy. Assessment: BI-RADS/ACR category 1 mammogram. Negative Mammogram. Recommendation Routine screening mammogram in 1 year (for women over age 40). This mammogram was interpreted with the aid of an FDA-approved computer-aided dectection system. Electronically Signed By: Balbir Asif MD 08/14/20 [id number]
== END ==
LOC: M WHC 13:39
PROVIDERS: ATTEND Internal Medicine
DX: Z12.31 Encounter for screening mammogram for malignant neoplasm of breast (principal); Z80.0 Family history of malignant neoplasm of digestive organs

== ENCOUNTER → 2020-12-04 | Outpatient (CLI) | payer MEDICARE, MEDICAID ==
[2020-12-04 11:43] LABS: HEMATOCRIT 34.3 % (36.0-47.0); HEMOGLOBIN 11.3 g/dl (12.0-15.5); MEAN CORPUSCULAR HEMOGLOBIN 33.5 pg (27.0-33.0); MEAN CORPUSCULAR HGB CONC 32.9 g/dl (32.0-36.5); MEAN CORPUSCULAR VOLUME 101.8 fl (80.0-96.0); PLATELET COUNT, AUTOMATED 249 10^3/uL (150-450); RED BLOOD COUNT 3.37 10^6/uL (4.00-5.40); WHITE BLOOD COUNT 6.3 10^3/uL (4.0-10.0)
[2020-12-04 12:26] LABS: BLOOD UREA NITROGEN 23 MG/DL (7-18); CALCIUM LEVEL 8.9 MG/DL (8.8-10.2); CARBON DIOXIDE LEVEL 31 MEQ/L (21-32); CHLORIDE LEVEL 99 MEQ/L (98-107); CREATININE FOR GFR 0.71 MG/DL (0.55-1.30); GLOMERULAR FILTRATION RATE > 60.0 (>45); GLUCOSE, FASTING 79 MG/DL (70-100); POTASSIUM SERUM 4.4 MEQ/L (3.5-5.1); SODIUM LEVEL 136 MEQ/L (136-145)
[2020-12-04 12:27] LABS: ALBUMIN 3.2 GM/DL (3.2-5.2); ALT/SGPT 13 U/L (12-78); BILIRUBIN,TOTAL 0.3 MG/DL (0.2-1.0); TOTAL PROTEIN 7.1 GM/DL (6.4-8.2)
== END ==
LOC: M WUC 08:23
PROVIDERS: ATTEND Internal Medicine
DX: E03.9 Hypothyroidism, unspecified (principal); E87.1 Hypo-osmolality and hyponatremia; K21.9 Gastro-esophageal reflux disease without esophagitis

== ENCOUNTER → 2021-03-21 | Outpatient (CLI) | payer MEDICARE, MEDICAID ==
[~2021-03-21] MED LIST changes: -PEG1POW PO; +POLY17PO18 PO
--- NOTE | 2021-03-21 11:30 | REP ---
INDICATION: CONSTIPATION COMPARISON: None. TECHNIQUE: Supine views of the abdomen and pelvis. FINDINGS: Bowel gas pattern is nonspecific and without obstruction or perforation. No organomegaly. No abnormal calcifications. Skeletal structures intact. IMPRESSION: Nonspecific abdominal radiographs. <Electronically signed by Austin Lazar > 03/21/21 1128
--- NOTE | 2021-03-21 11:30 | REP ---
INDICATION: PAIN COMPARISON: None. TECHNIQUE: AP and frog-lateral views of the right hip FINDINGS: Generalized age-related changes include subtle increased sclerosis to the acetabulum with minimal joint space narrowing. No further overt osteoarthritic or significant degenerative changes are appreciated. No evidence for acute or healed injury. Surrounding soft tissues are normal. IMPRESSION: Mild generalized age-related changes. No acute fracture or dislocation. <Electronically signed by Austin Lazar > 03/21/21 1123
--- NOTE | 2021-03-21 11:45 | REP ---
INDICATION: LUMBOSACRAL PAIN COMPARISON: 06/07/2011 and MRI dated 06/11/2014 TECHNIQUE: AP, lateral, bilateral oblique, and coned-down views of the lumbar spine. FINDINGS: Lateral view demonstrates mild compression deformities at L2 and possibly T12 of indeterminate age and correlation is required. Remainder of the examination demonstrates osteopenia and multilevel degenerative changes. IMPRESSION: 1. Compression deformities of L2 and T12 of indeterminate age require correlation. 2. Moderate multilevel degenerative changes <Electronically signed by Austin Lazar > 03/21/21 1144
--- NOTE | 2021-03-21 11:51 | REP ---
INDICATION: COCCYGEAL PAIN COMPARISON: None. TECHNIQUE: AP, lateral views of the sacrum and coccyx FINDINGS: Examination is somewhat limited by age-related osteopenia, degenerative changes and overlying opacities. No obvious sacrococcygeal fracture identified. IMPRESSION: No obvious acute fracture. <Electronically signed by Austin Lazar > 03/21/21 1144
== END ==
LOC: M WUC 10:58
PROVIDERS: ATTEND Physician Assistant
DX: M53.3 Sacrococcygeal disorders, not elsewhere classified (principal); M54.5 Low back pain; K59.00 Constipation, unspecified; M25.551 Pain in right hip

== ENCOUNTER → 2021-08-15 | Outpatient (CLI) | payer MEDICARE, MEDICAID ==
[~2021-08-15] MED LIST changes: -KLOR10TA76 PO; +OMEP40CA4 PO; -OMEP40CA97 PO; +POTA-136 PO
--- NOTE | 2021-08-15 11:38 | REPMRS ---
Patient History The patient states she had a clinical breast exam in 05-30-2021. Family history of prostate cancer at age 50 or over in father, colorectal cancer in sister. No Hormone Replacement Therapy Patient states no breast complaints today. Patient has signed MRS History Sheet. Digital Woman Screen Mammo: August 15, 2021 - Exam #: [id number] Bilateral CC and MLO view(s) were taken. Technologist: Rosenda Yoder, Social Service Manager Prior study comparison: August 14, 2020, bilateral digital woman screen mammo performed at [facility]. March 15, 2019, bilateral digital woman screen mammo performed at [facility]. FINDINGS: The breast tissue is heterogeneously dense. This may lower the sensitivity of mammography. Screening. Digital screening (2D) mammography was performed bilaterally in the CC and MLO projections. Additionally, breast tomosynthesis (3D mammography) was performed bilaterally in the CC and MLO projections. Todays exam was compared to the prior exam/exams. By history, the patient has no complaints of a palpable breast abnormality or other significant breast complaints. The breasts are unchanged in size and shape. Once again, dense heterogenous fibroglandular elements are seen bilaterally in a stable appearing pattern but to such a degree that the sensitivity of the mammogram in detecting cancer is decreased.There are no wong-soft tissue densities or spiculated masses. There is no internal architectural distortion. There are no suspicious wong-calcific clusters. Skin thickening or nipple retraction is not present. IMPRESSION: BI-RADS Category 2- Benign Findings. There is no evidence of malignant alteration of the breasts. Followup examination recommended in one year. The Volpara volumetric breast density category is C, the breasts are heterogenously dense which may obscure small masses. This mammogram was read with the assistance of [employer],an FDA approved computer aided detection system for mammography. The lifetime Tyrer-Cuzick score is 8.6 % Due to the density of the breasts or Tyrer Cuzick score of 20% or greater, MRI/whole breast screening ultrasound is warranted. Negative x-ray reports should not delay surgical consultation if a dominant or clinically suspicious mass is present. Not all breast cancers can be identified by mammography. Therefore, we recommend that you continue to perform regular breast self-examination and physical examination and then promptly contact your physician of any concerns or changes. Adenosis and dense breasts may obscure an underlying neoplasm. Assessment: BI-RADS/ACR category 2 mammogram. Benign Findings. Recommendation Routine screening mammogram of both breasts in 1 year. Electronically Signed By: Vikram Zacarias DO 08/15/21 [id number]
--- NOTE | 2021-08-15 11:55 | DEXAMM ---
INDICATION: COMPRESSION FX L2 WITH ROUTINE HEALING. COMPARISON: 02/11/2013, 05/08/2006. TECHNIQUE: Bone density was measured using dual-energy x-ray absorptiometry (DEXA). FINDINGS: AP SPINE L1-L4 BMD 1.173 g/cm2 Young Adult T-Score -0.2 Age Matched Z-Score 1.2. LT FEMUR, TOTAL BMD 0.801 g/cm2 Young Adult T-Score -1.6 Age Matched Z-Score -0.6. LT NECK BMD 0.789 g/cm2 Young Adult T-Score -1.8 Age Matched Z-Score -0.5. RT FEMUR, TOTAL BMD 0.858 g/cm2 Young Adult T-Score -1.2 Age Matched Z-Score -0.2. RT NECK BMD 0.844 g/cm2 Young Adult T-Score -1.4 Age Matched Z-Score -0.1. IMPRESSION: There is normal bone density of the spine. There is low bone density of the left hip. There is low bone density of the right hip. The density of the spine has decreased 9.7% since the initial exam on 05/08/2006. The density of the spine decreased 7.3% since most recent exam on 02/11/2013. The density of the left hip has decreased 20.0% since initial exam on 05/08/2006. The density of the left hip has decreased 10.8% since most recent exam on 02/11/2013. The density of the right hip has decreased 19.3% since the initial exam on 05/08/2006. The density of the right hip has decreased 11.3% since the most recent exam on 02/11/2013. FOLLOW-UP: Recommendation for the next bone density exam: 2 years. <Electronically signed by Balbir Asif > 08/15/21 [id number]
== END ==
LOC: M WHC 09:42
PROVIDERS: ATTEND Internal Medicine
DX: Z12.31 Encounter for screening mammogram for malignant neoplasm of breast (principal); S32.020D Wedge compression fracture of second lumbar vertebra, subsequent encounter for fracture with routine healing; Z80.42 Family history of malignant neoplasm of prostate; Z80.0 Family history of malignant neoplasm of digestive organs; M85.851 Other specified disorders of bone density and structure, right thigh; M85.852 Other specified disorders of bone density and structure, left thigh; X58.XXXD Exposure to other specified factors, subsequent encounter; Y92.9 Unspecified place or not applicable; Y99.9 Unspecified external cause status; Y93.9 Activity, unspecified

== ENCOUNTER → 2021-08-16 | Outpatient (CLI) | payer MEDICARE, MEDICAID ==
[2021-08-16 09:39] LABS: BASO % 0.4 % (0.0-1.0); EOS % 0.8 % (0.0-3.0); HEMATOCRIT 32.1 % (36.0-47.0); HEMOGLOBIN 11.2 g/dl (12.0-15.5); LYMPH # 0.9 10^3/uL (1.5-5.0); MEAN CORPUSCULAR HGB CONC 34.9 g/dl (32.0-36.5); MEAN CORPUSCULAR VOLUME 100.3 fl (80.0-96.0); MONO # 0.5 10^3/uL (0.0-0.8); MONO % 10.6 % (2.0-8.0); NEUTROPHILS # 3.5 10^3/uL (1.5-8.5); NEUTROPHILS % 70.8 % (36.0-66.0); PLATELET COUNT, AUTOMATED 144 10^3/uL (150-450)
[2021-08-16 10:19] LABS: ALT/SGPT 12 U/L (12-78); BILIRUBIN,TOTAL 0.5 MG/DL (0.2-1.0); BLOOD UREA NITROGEN 18 MG/DL (7-18); CALCIUM LEVEL 8.3 MG/DL (8.8-10.2); CARBON DIOXIDE LEVEL 29 MEQ/L (21-32); CHLORIDE LEVEL 100 MEQ/L (98-107); CHOLESTEROL LEVEL 207 MG/DL (<200); CHOLESTEROL RISK RATIO 2.653 (<5); CREATININE FOR GFR 0.66 MG/DL (0.55-1.30); GLOMERULAR FILTRATION RATE > 60.0 (>45); GLUCOSE, FASTING 76 MG/DL (70-100); HDL CHOLESTEROL 78 MG/DL (>40); LDL CHOLESTEROL 109 MG/DL (<100); NON-HDL-C 129 MG/DL; POTASSIUM SERUM 4.7 MEQ/L (3.5-5.1); SODIUM LEVEL 134 MEQ/L (136-145); TOTAL PROTEIN 6.6 GM/DL (6.4-8.2); TRIGLYCERIDES LEVEL 99 MG/DL (<150)
== END ==
LOC: M WUC 08:24
PROVIDERS: ATTEND Internal Medicine
DX: E78.00 Pure hypercholesterolemia, unspecified (principal); E03.9 Hypothyroidism, unspecified; Z79.899 Other long term (current) drug therapy; G40.909 Epilepsy, unspecified, not intractable, without status epilepticus

== ENCOUNTER → 2022-01-08 | Outpatient (CLI) | payer MEDICARE, MEDICAID ==
[2022-01-08 12:50] LABS: BASO % 0.8 % (0.0-1.0); EOS # 0.1 10^3/uL (0.0-0.5); EOS % 2.1 % (0.0-3.0); HEMATOCRIT 32.3 % (36.0-47.0); HEMOGLOBIN 11.3 g/dl (12.0-15.5); LYMPH # 1.6 10^3/uL (1.5-5.0); LYMPH % 31.3 % (24.0-44.0); MEAN CORPUSCULAR HEMOGLOBIN 33.8 pg (27.0-33.0); MEAN CORPUSCULAR VOLUME 96.7 fl (80.0-96.0); MONO # 0.5 10^3/uL (0.0-0.8); MONO % 9.5 % (2.0-8.0); NEUTROPHILS # 2.9 10^3/uL (1.5-8.5); NEUTROPHILS % 56.1 % (36.0-66.0); PLATELET COUNT, AUTOMATED 136 10^3/uL (150-450); RED BLOOD COUNT 3.34 10^6/uL (4.00-5.40); WHITE BLOOD COUNT 5.2 10^3/uL (4.0-10.0)
[2022-01-08 13:29] LABS: ALBUMIN 3.2 GM/DL (3.2-5.2); ALT/SGPT 13 U/L (12-78); BILIRUBIN,TOTAL 0.2 MG/DL (0.2-1.0); BLOOD UREA NITROGEN 16 MG/DL (7-18); CALCIUM LEVEL 9.2 MG/DL (8.8-10.2); CARBON DIOXIDE LEVEL 30 MEQ/L (21-32); CHLORIDE LEVEL 97 MEQ/L (98-107); CHOLESTEROL LEVEL 215 MG/DL (<200); CHOLESTEROL RISK RATIO 2.756 (<5); GLOMERULAR FILTRATION RATE > 60.0 (>45); GLUCOSE, FASTING 87 MG/DL (70-100); HDL CHOLESTEROL 78 MG/DL (>40); LDL CHOLESTEROL 121 MG/DL (<100); NON-HDL-C 137 MG/DL; POTASSIUM SERUM 4.6 MEQ/L (3.5-5.1); SODIUM LEVEL 132 MEQ/L (136-145); TOTAL PROTEIN 6.8 GM/DL (6.4-8.2); TRIGLYCERIDES LEVEL 82 MG/DL (<150)
== END ==
LOC: M WUC 08:54
PROVIDERS: ATTEND Internal Medicine
DX: E78.00 Pure hypercholesterolemia, unspecified (principal); E03.9 Hypothyroidism, unspecified; Z79.899 Other long term (current) drug therapy

== ENCOUNTER → 2022-03-26 | Outpatient (CLI) | payer MEDICARE, MEDICAID ==
[2022-03-26 12:31] LABS: HEMATOCRIT 30.8 % (36.0-47.0); HEMOGLOBIN 10.6 g/dl (12.0-15.5); MEAN CORPUSCULAR HEMOGLOBIN 34.4 pg (27.0-33.0); MEAN CORPUSCULAR HGB CONC 34.4 g/dl (32.0-36.5); PLATELET COUNT, AUTOMATED 140 10^3/uL (150-450); RED BLOOD COUNT 3.08 10^6/uL (4.00-5.40); WHITE BLOOD COUNT 4.2 10^3/uL (4.0-10.0)
[2022-03-26 13:02] LABS: ALT/SGPT 11 U/L (12-78); BILIRUBIN,TOTAL 0.3 MG/DL (0.2-1.0); BLOOD UREA NITROGEN 21 MG/DL (7-18); CALCIUM LEVEL 8.4 MG/DL (8.8-10.2); CARBAMAZEPINE (TEGRETOL) LEVEL 9.2 UG/ML (4.0-10.0); CARBON DIOXIDE LEVEL 29 MEQ/L (21-32); CHLORIDE LEVEL 98 MEQ/L (98-107); CREATININE FOR GFR 0.67 MG/DL (0.55-1.30); GLOMERULAR FILTRATION RATE > 60.0 (>45); GLUCOSE, FASTING 78 MG/DL (70-100); POTASSIUM SERUM 4.8 MEQ/L (3.5-5.1); SODIUM LEVEL 129 MEQ/L (136-145); TOTAL PROTEIN 6.7 GM/DL (6.4-8.2); VALPROIC ACID (DEPAKOTE) 94.4 UG/ML (50.0-100.0)
[2022-03-26 14:28] LABS: BASOPHILS 1 % (0-1); EOSINOPHILS 1 % (0-3); LYMPHOCYTES 41 % (16-44); MONOCYTES 4 % (0-5); NEUTROPHILS 53 % (28-66)
[2022-03-26 14:29] LABS: PLATELET ESTIMATE DECREASED (NORMAL)
== END ==
LOC: M WUC 09:02
PROVIDERS: ATTEND Psychiatry & Neurology Neurology
DX: R56.9 Unspecified convulsions (principal)

== ENCOUNTER 2022-08-11 14:30 | Emergency (ER) | payer MEDICARE, MEDICAID ==
[~2022-08-11] VITALS: Ht 162.6 cm; Wt 100.0 kg
[2022-08-11 15:30] LABS: BASO % 0.5 % (0.0-1.0); EOS # 0.1 10^3/uL (0.0-0.5); EOS % 1.9 % (0.0-3.0); HEMATOCRIT 30.9 % (36.0-47.0); HEMOGLOBIN 11.1 g/dl (12.0-15.5); LYMPH # 1.3 10^3/uL (1.5-5.0); LYMPH % 21.1 % (24.0-44.0); MEAN CORPUSCULAR HEMOGLOBIN 35.1 pg (27.0-33.0); MEAN CORPUSCULAR HGB CONC 35.9 g/dl (32.0-36.5); MEAN CORPUSCULAR VOLUME 97.8 fl (80.0-96.0); MONO # 0.6 10^3/uL (0.0-0.8); NEUTROPHILS # 4.2 10^3/uL (1.5-8.5); NEUTROPHILS % 67.2 % (36.0-66.0); PLATELET COUNT, AUTOMATED 167 10^3/uL (150-450); RED BLOOD COUNT 3.16 10^6/uL (4.00-5.40); WHITE BLOOD COUNT 6.2 10^3/uL (4.0-10.0)
[2022-08-11 15:34] LABS: INR 0.89; PROTHROMBIN TIME 12.2 SECONDS (12.5-14.5)
[2022-08-11 15:35] LABS: PARTIAL THROMBOPLASTIN TIME 27.4 SECONDS (24.8-34.2)
[2022-08-11 15:49] LABS: CPK CREATINE PHOSPHOKINASE 303 U/L (26-192)
[2022-08-11 15:57] LABS: ALBUMIN 2.9 GM/DL (3.2-5.2); ALT/SGPT 15 U/L (12-78); BILIRUBIN,DIRECT 0.1 MG/DL (0.0-0.2); BILIRUBIN,TOTAL 0.2 MG/DL (0.2-1.0); BLOOD UREA NITROGEN 21 MG/DL (7-18); CALCIUM LEVEL 8.5 MG/DL (8.8-10.2); CARBON DIOXIDE LEVEL 28 MEQ/L (21-32); CHLORIDE LEVEL 100 MEQ/L (98-107); CREATININE FOR GFR 0.66 MG/DL (0.55-1.30); FREE T4 0.74 NG/DL (0.76-1.46); GLOMERULAR FILTRATION RATE > 60.0 (>45); GLUCOSE, FASTING 106 MG/DL (70-100); LIPASE 222 U/L (73-393); POTASSIUM SERUM 4.5 MEQ/L (3.5-5.1); SODIUM LEVEL 132 MEQ/L (136-145); TOTAL PROTEIN 6.6 GM/DL (6.4-8.2)
[2022-08-11 17:34] LABS: CPK CREATINE PHOSPHOKINASE 367 U/L (26-192)
[2022-08-11 18:02] LABS: CARBAMAZEPINE (TEGRETOL) LEVEL 10.6 UG/ML (4.0-10.0); VALPROIC ACID (DEPAKOTE) 70.9 UG/ML (50.0-100.0)
[2022-08-11] MEDS ORDERED: ACETAMINOPHEN 325 MG TAB PO ONE (18:25)
[2022-08-11 19:38] LABS: RSV AMPLIFICATION NEGATIVE (NEGATIVE)
[2022-08-11 19:39] LABS: NT-PRO BNP 759 PG/ML (<125)
[2022-08-11] MEDS ORDERED: MOM30SS PO (20:28)
[2022-08-11] MEDS ORDERED: ALBU8.5H INH (20:28)
[2022-08-11] MEDS ORDERED: XALA0.007 OU (20:28)
[2022-08-11] MEDS ORDERED: SALI0.6530 NARES (20:28)
[2022-08-11] MEDS ORDERED: CARB1TAB20 PO (20:28)
[2022-08-11] MEDS ORDERED: AZOP0.2S OU (20:28)
[2022-08-11 20:32] LABS: CPK CREATINE PHOSPHOKINASE 418 U/L (26-192)
[2022-08-11] MEDS ORDERED: ASPIRIN 81 MG CHEW TABLET PO ONE (20:35)
[2022-08-11] MEDS ORDERED: HOME MED LIST COMPLETE! XX SCH (20:35)
[2022-08-11] MEDS ORDERED: HEPARIN DRIP 25,000 UNITS in IV 1 EA IV SCH (20:45)
[2022-08-12 00:01] VITALS: BP_DIAS 90
[2022-08-12] MEDS ORDERED: levETIRAcetam 250MG TABLET (KEPPRA) PO ONE (00:35)
[2022-08-12] MEDS ORDERED: DIVALPROEX 250MG *ER* TAB PO ONE ×2 (00:35)
[2022-08-12 01:32] VITALS: BP_SYST 180
== END 2022-08-12 01:42 | disposition short-term general hospital (02) ==
LOC: EDBD 14:30 → M ED 14:30
DX: I21.4 Non-ST elevation (NSTEMI) myocardial infarction (principal); S00.03XA Contusion of scalp, initial encounter; W18.30XA Fall on same level, unspecified, initial encounter; Z88.0 Allergy status to penicillin; Z88.1 Allergy status to other antibiotic agents; Z88.2 Allergy status to sulfonamides; Z88.8 Allergy status to other drugs, medicaments and biological substances
CPT/HCPCS: 70450; 70486; 71045; 72125; 72170; 73000; 73060; 73090; 73130; 73502; 73552; 73590; 80048; 80076; 80156; 80164; 80180; 82550; 83690; 83880; 84439; 84443; 84484; 85025; 85610; 85730; 87631; 93005; 93041; 94760; 96374; 99285; J1644

== ENCOUNTER → 2022-09-17 | Outpatient (CLI) | payer MEDICARE, MEDICAID ==
[~2022-09-17] MED LIST changes: +ALBU8.5H INH; +AZOP0.2S OU; +MOM30SS PO; +SALI0.6530 NARES; +XALA0.007 OU
[2022-09-17 15:35] LABS: BASO % 0.3 % (0.0-1.0); EOS # 0.1 10^3/uL (0.0-0.5); EOS % 1.6 % (0.0-3.0); HEMATOCRIT 32.2 % (36.0-47.0); LYMPH # 2.3 10^3/uL (1.5-5.0); LYMPH % 37.6 % (24.0-44.0); MEAN CORPUSCULAR HEMOGLOBIN 34.5 pg (27.0-33.0); MEAN CORPUSCULAR HGB CONC 34.2 g/dl (32.0-36.5); MEAN CORPUSCULAR VOLUME 100.9 fl (80.0-96.0); MONO # 0.4 10^3/uL (0.0-0.8); MONO % 6.9 % (2.0-8.0); NEUTROPHILS # 3.3 10^3/uL (1.5-8.5); NEUTROPHILS % 53.4 % (36.0-66.0); PLATELET COUNT, AUTOMATED 153 10^3/uL (150-450); RED BLOOD COUNT 3.19 10^6/uL (4.00-5.40); WHITE BLOOD COUNT 6.2 10^3/uL (4.0-10.0)
[2022-09-17 16:27] LABS: ALBUMIN 3.1 G/DL (3.2-5.2); ALT/SGPT 12 U/L (7.0-40); BILIRUBIN,TOTAL 0.2 MG/DL (0.3-1.2); BLOOD UREA NITROGEN 21 MG/DL (9-23); CALCIUM LEVEL 8.4 MG/DL (8.3-10.6); CARBON DIOXIDE LEVEL 27 MMOL/L (20-31); CHLORIDE LEVEL 93 MMOL/L (98-107); CREATININE FOR GFR 0.56 MG/DL (0.55-1.30); GLOMERULAR FILTRATION RATE > 60.0 (>45); GLUCOSE, FASTING 87 MG/DL (74-106); MAGNESIUM LEVEL 1.5 MG/DL (1.8-2.4); POTASSIUM SERUM 4.7 MMOL/L (3.5-5.1); SODIUM LEVEL 129 MMOL/L (136-145); TOTAL PROTEIN 6.3 G/DL (5.7-8.2)
== END ==
LOC: M PLALAB 12:23
PROVIDERS: ATTEND Physician Assistant
DX: E83.42 Hypomagnesemia (principal)

== ENCOUNTER → 2022-09-24 | Outpatient (CLI) | payer MEDICARE, MEDICAID ==
[2022-09-24 11:25] LABS: CHLORIDE LEVEL 95 MMOL/L (98-107); SODIUM LEVEL 128 MMOL/L (136-145)
[2022-09-24 11:26] LABS: ALBUMIN 2.8 G/DL (3.2-5.2); CARBON DIOXIDE LEVEL 28 MMOL/L (20-31)
[2022-09-24 11:27] LABS: PTH INTACT 46.4 PG/ML (18.5-88.0)
[2022-09-24 11:30] LABS: ALKALINE PHOSPHATASE 64 U/L (46-116)
[2022-09-24 11:31] LABS: CALCIUM LEVEL 8.4 MG/DL (8.3-10.6); GLUCOSE, FASTING 87 MG/DL (74-106)
[2022-09-24 11:32] LABS: BLOOD UREA NITROGEN 23 MG/DL (9-23); MAGNESIUM LEVEL 1.6 MG/DL (1.8-2.4)
[2022-09-24 11:33] LABS: ALT/SGPT 11 U/L (7.0-40); AST/SGOT 12 U/L (<34); CREATININE FOR GFR 0.58 MG/DL (0.55-1.30); GLOMERULAR FILTRATION RATE > 60.0 (>45); THYROID STIMULATING HORMONE 1.002 uIU/ML (0.55-4.78)
[2022-09-24 11:34] LABS: BILIRUBIN,TOTAL 0.2 MG/DL (0.3-1.2); TOTAL PROTEIN 5.9 G/DL (5.7-8.2)
[2022-09-24 12:07] LABS: HEMOGLOBIN A1c 4.8 % (4.0-6.0)
== END ==
LOC: M PLALAB 07:20
PROVIDERS: ATTEND Physician Assistant
DX: E83.42 Hypomagnesemia (principal); E78.00 Pure hypercholesterolemia, unspecified

== ENCOUNTER → 2022-10-02 | Outpatient (CLI) | payer MEDICARE, MEDICAID | LOC: M WUC 09:12 | PROVIDERS: ATTEND Psychiatry & Neurology Neurology | DX: Z51.81 Encounter for therapeutic drug level monitoring (principal); Z79.899 Other long term (current) drug therapy ==

== ENCOUNTER → 2022-10-02 | Outpatient (CLI) | payer MEDICARE, MEDICAID ==
[2022-10-02 13:48] LABS: MAGNESIUM LEVEL 1.6 MG/DL (1.8-2.4)
[2022-10-09 16:09] LABS: ADH PANEL OSMOLALITY 265 mOsmol/kg (280-301); ANTI-DIURETIC HORMONE <0.8 pg/mL (0.0-4.7)
== END ==
LOC: M WUC 09:14
PROVIDERS: ATTEND Physician Assistant
DX: E87.1 Hypo-osmolality and hyponatremia (principal)

== ENCOUNTER → 2022-10-03 | Outpatient (REF) | payer MEDICARE, MEDICAID ==
[2022-10-04 10:44] LABS: OSMOLALITY URINE 440 MOSM/KG (50-1400)
[2022-10-04 10:51] LABS: SODIUM,RANDOM URINE 69 MMOL/L
== END ==
LOC: M SFHCPLAZ 10:10
PROVIDERS: ATTEND Physician Assistant
DX: E87.1 Hypo-osmolality and hyponatremia (principal)

== ENCOUNTER → 2022-10-29 | Outpatient (CLI) | payer MEDICARE, MEDICAID | LOC: M WHC 08:32 | PROVIDERS: ATTEND Physician Assistant | DX: Z12.31 Encounter for screening mammogram for malignant neoplasm of breast (principal); R92.8 Other abnormal and inconclusive findings on diagnostic imaging of breast ==

== ENCOUNTER → 2022-11-13 | Outpatient (CLI) | payer MEDICARE, MEDICAID | LOC: M WHC 08:40 | PROVIDERS: ATTEND Physician Assistant | DX: R92.8 Other abnormal and inconclusive findings on diagnostic imaging of breast (principal) | CPT/HCPCS: 77065; G0279 ==

== ENCOUNTER → 2022-11-14 | Outpatient (CLI) | payer MEDICARE, MEDICAID ==
[2022-11-14 10:08] LABS: ALKALINE PHOSPHATASE 74 U/L (46-116); ALT/SGPT 11 U/L (7.0-40); AST/SGOT 14 U/L (<34); BILIRUBIN,TOTAL 0.3 MG/DL (0.3-1.2); BLOOD UREA NITROGEN 20 MG/DL (9-23); CALCIUM LEVEL 8.8 MG/DL (8.3-10.6); CARBON DIOXIDE LEVEL 29 MMOL/L (20-31); CHLORIDE LEVEL 96 MMOL/L (98-107); CREATININE FOR GFR 0.65 MG/DL (0.55-1.30); GLOMERULAR FILTRATION RATE > 60.0 (>45); GLUCOSE, FASTING 88 MG/DL (74-106); POTASSIUM SERUM 5.1 MMOL/L (3.5-5.1); SODIUM LEVEL 130 MMOL/L (136-145); TOTAL PROTEIN 6.2 G/DL (5.7-8.2)
== END ==
LOC: M WUC 08:29
PROVIDERS: ATTEND Physician Assistant
DX: E87.1 Hypo-osmolality and hyponatremia (principal)

== ENCOUNTER → 2022-12-10 | Outpatient (CLI) | payer MEDICARE, MEDICAID ==
[~2022-12-10] MED LIST changes: +AMLO2.5T3 PO; +ASPI81TA26 PO; +ATOR40TA75 PO; +CARB20TA PO; +MAGN400T2 PO
[2022-12-10 15:32] LABS: ALKALINE PHOSPHATASE 83 U/L (46-116); ALT/SGPT 10 U/L (7.0-40); AST/SGOT < 8 U/L (<34); BILIRUBIN,TOTAL 0.2 MG/DL (0.3-1.2); BLOOD UREA NITROGEN 20 MG/DL (9-23); CALCIUM LEVEL 8.7 MG/DL (8.3-10.6); CARBON DIOXIDE LEVEL 29 MMOL/L (20-31); CHLORIDE LEVEL 96 MMOL/L (98-107); CREATININE FOR GFR 0.61 MG/DL (0.55-1.30); GLOMERULAR FILTRATION RATE > 60.0 (>45); GLUCOSE, FASTING 78 MG/DL (74-106); MAGNESIUM LEVEL 1.7 MG/DL (1.8-2.4); POTASSIUM SERUM 5.3 MMOL/L (3.5-5.1); SODIUM LEVEL 126 MMOL/L (136-145); TOTAL PROTEIN 6.6 G/DL (5.7-8.2)
== END ==
LOC: M PLALAB 11:59
PROVIDERS: ATTEND Physician Assistant
DX: E83.42 Hypomagnesemia (principal)

== ENCOUNTER → 2022-12-16 | Outpatient (CLI) | payer MEDICARE, MEDICAID | LOC: M LABSMTC 08:39 | PROVIDERS: ATTEND Anesthesiology | DX: Z01.812 Encounter for preprocedural laboratory examination (principal); Z11.52 Encounter for screening for COVID-19 ==

== ENCOUNTER → 2022-12-27 | Outpatient (CLI) | payer MEDICARE, MEDICAID | LOC: M LABSMTC 11:40 | PROVIDERS: ATTEND Anesthesiology | DX: Z01.812 Encounter for preprocedural laboratory examination (principal); Z20.822 Contact with and (suspected) exposure to COVID-19 ==

== ENCOUNTER 2023-01-01 09:15 | Day surgery (SDC) | payer MEDICARE, MEDICAID ==
[~2023-01-01] VITALS: Ht 154.9 cm; Wt 90.2 kg
[~2023-01-01 09:15] MED LIST changes: +BSS IRRIG/VANCO(10MG)/TOBRA(5MG)/EPINEPH(1:1000-0.5CC)500ML BAG-ORONLY IR ONE; +CYCLOPENTOLATE 1% OPHTH SOLN 2ML BTL OD SCH; +LIDOCAINE 1% SDV 5ML VIAL As Ordered ONE; +LIDOCAINE 3.5 % 1ML OPHTH TOPICAL GEL OU ONE; +OFLOXACIN 0.3 % (OCUFLOX) OPTH SOL 5ML OD ONE; +PHENYLEPHRINE 10% OPHTH SOL 5ML OD PRN; +PHENYLEPHRINE 2.5% OPHTH SOL 2ML OD SCH; +TROPICAMIDE 1% OPHTH SOLN 15ML OD SCH
[2023-01-01] MEDS ORDERED: CEFUROXIME 1MG/0.1ML INTRACAMERAL INJ As Ordered ONE (10:49)
[2023-01-01] MEDS ORDERED: fentaNYL 100 MCG/2 ML INJECTION As Ordered ONE (11:03)
[2023-01-01] MEDS ORDERED: MIDAZOLAM INJ 2MG/2ML VIAL As Ordered ONE (11:03)
[2023-01-01 11:09] VITALS: BP 188/77
== END 2023-01-01 11:18 | disposition home or self-care (01) ==
LOC: M SDC 09:15
PROVIDERS: ATTEND Ophthalmology
DX: H25.11 Age-related nuclear cataract, right eye (principal); H40.051 Ocular hypertension, right eye; I10 Essential (primary) hypertension; E78.5 Hyperlipidemia, unspecified; E03.9 Hypothyroidism, unspecified; K21.9 Gastro-esophageal reflux disease without esophagitis; F32.A Depression, unspecified; G43.909 Migraine, unspecified, not intractable, without status migrainosus; J45.909 Unspecified asthma, uncomplicated; Z79.51 Long term (current) use of inhaled steroids; Z79.82 Long term (current) use of aspirin; Z79.899 Other long term (current) drug therapy; Z88.0 Allergy status to penicillin; Z88.1 Allergy status to other antibiotic agents; Z88.8 Allergy status to other drugs, medicaments and biological substances
CPT/HCPCS: 66987; C1783; J0697; J2250; J3010; V2632

== ENCOUNTER → 2023-01-10 | Outpatient (CLI) | payer MEDICARE, MEDICAID ==
[~2023-01-10] MED LIST changes: -BSS IRRIG/VANCO(10MG)/TOBRA(5MG)/EPINEPH(1:1000-0.5CC)500ML BAG-ORONLY IR ONE; -CYCLOPENTOLATE 1% OPHTH SOLN 2ML BTL OD SCH; -LIDOCAINE 1% SDV 5ML VIAL As Ordered ONE; -LIDOCAINE 3.5 % 1ML OPHTH TOPICAL GEL OU ONE; -OFLOXACIN 0.3 % (OCUFLOX) OPTH SOL 5ML OD ONE; -PHENYLEPHRINE 10% OPHTH SOL 5ML OD PRN; -PHENYLEPHRINE 2.5% OPHTH SOL 2ML OD SCH; -TROPICAMIDE 1% OPHTH SOLN 15ML OD SCH
== END ==
LOC: M LABSMTC 10:31
PROVIDERS: ATTEND Anesthesiology
DX: Z01.812 Encounter for preprocedural laboratory examination (principal)

== ENCOUNTER 2023-01-15 11:29 | Day surgery (SDC) | payer MEDICARE, MEDICAID ==
[~2023-01-15] VITALS: Ht 165.1 cm; Wt 93.4 kg
[~2023-01-15 11:29] MED LIST changes: +BSS IRRIG/VANCO(10MG)/TOBRA(5MG)/EPINEPH(1:1000-0.5CC)500ML BAG-ORONLY IR ONE; +CEFUROXIME 1MG/0.1ML INTRACAMERAL INJ As Ordered ONE; +CYCLOPENTOLATE 1% OPHTH SOLN 2ML BTL OS SCH; +LIDOCAINE 1% SDV 5ML VIAL As Ordered ONE; +LIDOCAINE 3.5 % 1ML OPHTH TOPICAL GEL OU ONE; +OFLOXACIN 0.3 % (OCUFLOX) OPTH SOL 5ML OS ONE; +PHENYLEPHRINE 10% OPHTH SOL 5ML OS PRN; +PHENYLEPHRINE 2.5% OPHTH SOL 2ML OS SCH; +TROPICAMIDE 1% OPHTH SOLN 15ML OS SCH
[2023-01-15] MEDS ORDERED: fentaNYL 100 MCG/2 ML INJECTION As Ordered ONE (12:56)
[2023-01-15] MEDS ORDERED: MIDAZOLAM INJ 2MG/2ML VIAL As Ordered ONE (12:56)
[2023-01-15] MEDS ORDERED: TRYPAN BLUE 0.06 % 2.25 ML OPHTH SYR (VISIONBLUE) As Ordered ONE (13:14)
[2023-01-15 13:55] VITALS: BP 182/80
== END 2023-01-15 14:00 | disposition home or self-care (01) ==
LOC: M SDC 11:29
PROVIDERS: ATTEND Ophthalmology
DX: H25.12 Age-related nuclear cataract, left eye (principal); H40.812 Glaucoma with increased episcleral venous pressure, left eye; I10 Essential (primary) hypertension; E78.5 Hyperlipidemia, unspecified; E03.9 Hypothyroidism, unspecified; K21.9 Gastro-esophageal reflux disease without esophagitis; G40.909 Epilepsy, unspecified, not intractable, without status epilepticus; F32.A Depression, unspecified; J45.909 Unspecified asthma, uncomplicated; Z79.51 Long term (current) use of inhaled steroids; Z79.82 Long term (current) use of aspirin; Z79.899 Other long term (current) drug therapy; Z88.1 Allergy status to other antibiotic agents; Z88.0 Allergy status to penicillin; Z88.2 Allergy status to sulfonamides; Z88.8 Allergy status to other drugs, medicaments and biological substances
CPT/HCPCS: 66183; 66987; C1783; J0697; J2250; J3010; V2632

== ENCOUNTER → 2023-03-17 | Outpatient (CLI) | payer MEDICARE, MEDICAID ==
[~2023-03-17] MED LIST changes: -BSS IRRIG/VANCO(10MG)/TOBRA(5MG)/EPINEPH(1:1000-0.5CC)500ML BAG-ORONLY IR ONE; -CEFUROXIME 1MG/0.1ML INTRACAMERAL INJ As Ordered ONE; -CYCLOPENTOLATE 1% OPHTH SOLN 2ML BTL OS SCH; -LIDOCAINE 1% SDV 5ML VIAL As Ordered ONE; -LIDOCAINE 3.5 % 1ML OPHTH TOPICAL GEL OU ONE; -OFLOXACIN 0.3 % (OCUFLOX) OPTH SOL 5ML OS ONE; -PHENYLEPHRINE 10% OPHTH SOL 5ML OS PRN; -PHENYLEPHRINE 2.5% OPHTH SOL 2ML OS SCH; -TROPICAMIDE 1% OPHTH SOLN 15ML OS SCH
== END ==
LOC: M WUC 15:07
PROVIDERS: ATTEND Nurse Practitioner Family
DX: M25.571 Pain in right ankle and joints of right foot (principal)

== ENCOUNTER → 2023-06-19 | Outpatient (CLI) | payer MEDICARE, MEDICAID ==
[2023-06-19 18:27] LABS: BASO % 0.7 % (0.0-1.0); EOS # 0.2 10^3/uL (0.0-0.5); EOS % 3.8 % (0.0-3.0); HEMATOCRIT 30.4 % (36.0-47.0); HEMOGLOBIN 10.7 g/dl (12.0-15.5); LYMPH # 1.5 10^3/uL (1.5-5.0); LYMPH % 33.9 % (24.0-44.0); MEAN CORPUSCULAR HEMOGLOBIN 32.6 pg (27.0-33.0); MEAN CORPUSCULAR HGB CONC 35.2 g/dl (32.0-36.5); MEAN CORPUSCULAR VOLUME 92.7 fl (80.0-96.0); MONO # 0.5 10^3/uL (0.0-0.8); MONO % 10.6 % (2.0-8.0); NEUTROPHILS # 2.2 10^3/uL (1.5-8.5); NEUTROPHILS % 50.5 % (36.0-66.0); PLATELET COUNT, AUTOMATED 149 10^3/uL (150-450); RED BLOOD COUNT 3.28 10^6/uL (4.00-5.40); WHITE BLOOD COUNT 4.4 10^3/uL (4.0-10.0)
[2023-06-19 18:53] LABS: TOTAL IRON BINDING CAPACITY 408 UG/DL (250-425)
[2023-06-19 18:54] LABS: ALBUMIN 3.2 G/DL (3.2-5.2); ALKALINE PHOSPHATASE 79 U/L (46-116); ALT/SGPT 15 U/L (7.0-40); AST/SGOT 13 U/L (<34); BILIRUBIN,TOTAL 0.2 MG/DL (0.3-1.2); BLOOD UREA NITROGEN 21 MG/DL (9-23); CALCIUM LEVEL 8.7 MG/DL (8.3-10.6); CARBON DIOXIDE LEVEL 29 MMOL/L (20-31); CHLORIDE LEVEL 95 MMOL/L (98-107); CREATININE FOR GFR 0.84 MG/DL (0.55-1.30); GLOMERULAR FILTRATION RATE > 60.0 (>45); GLUCOSE, FASTING 88 MG/DL (74-106); IRON (FE) 38 UG/DL (50-170); MAGNESIUM LEVEL 1.7 MG/DL (1.8-2.4); PERCENT SATURATION 9.3 % (13.2-45.0); POTASSIUM SERUM 4.7 MMOL/L (3.5-5.1); SODIUM LEVEL 128 MMOL/L (136-145); TOTAL PROTEIN 6.7 G/DL (5.7-8.2)
[2023-06-19 18:57] LABS: FERRITIN 14.2 NG/ML (7.3-270.7); VITAMIN B12 LEVEL 694 PG/ML (211-911)
== END ==
LOC: M PLALAB 16:28
PROVIDERS: ATTEND Physician Assistant
DX: R89.9 Unspecified abnormal finding in specimens from other organs, systems and tissues (principal)

== ENCOUNTER 2023-07-11 07:00 | Outpatient (CLI) | payer MEDICARE, MEDICAID ==
[~2023-07-11] VITALS: Ht 165.1 cm; Wt 99.0 kg
[2023-07-11] MEDS ORDERED: methylPREDNISolone 125MG 2ML VIAL IV PRN (07:01)
[2023-07-11] MEDS ORDERED: diphenhydrAMINE 50MG/ML VIAL IV PRN (07:01)
[2023-07-11] MEDS ORDERED: ALBUTEROL SULFATE 2.5MG/0.5ML INH NEB SOLN INH PRN (07:01)
[2023-07-11] MEDS ORDERED: EPINEPHrine INJ 1 MG/ML 1ML AMP IM PRN (07:01)
[2023-07-11 07:05] VITALS: BP 178/75; O2SAT 100
[2023-07-11] MEDS ORDERED: NS 1,000 ML IV SCH (07:10)
[2023-07-11] MEDS ORDERED: FERRIC CARBOXYMALTOSE INJ 750 MG in NS 250 ML (>50kg) IV ONE ×3 (07:10)
[2023-07-11 09:00] VITALS: BP_SYST 164; BP_SYST 171; BP_DIAS 68; BP_DIAS 74; O2SAT 100
== END 2023-07-11 09:00 | disposition home or self-care (01) ==
LOC: M INFU 07:00
PROVIDERS: ATTEND Physician Assistant
DX: D50.9 Iron deficiency anemia, unspecified (principal); Z88.0 Allergy status to penicillin; Z88.1 Allergy status to other antibiotic agents; Z88.2 Allergy status to sulfonamides; Z88.8 Allergy status to other drugs, medicaments and biological substances
CPT/HCPCS: 96365; 96366; J1439

== ENCOUNTER 2023-10-14 14:51 | Emergency (ER) | payer MEDICARE, MEDICAID ==
[~2023-10-14] VITALS: Ht 165.1 cm; Wt 92.4 kg
[~2023-10-14 14:51] MED LIST changes: -SALI0.6530 NARES; +SODI88SP NARES
[2023-10-14 15:09] VITALS: TEMP 97.3
[2023-10-14] MEDS ORDERED: HYDR12.55 PO (16:40)
[2023-10-14] MEDS ORDERED: BRIN15DR (16:40)
[2023-10-14] MEDS ORDERED: LATA1DRO (16:40)
[2023-10-14] MEDS ORDERED: OMEP40CA5 (16:40)
[2023-10-14] MEDS ORDERED: LEVO112T2 (16:40)
[2023-10-14] MEDS ORDERED: ASPI-226 PO (16:40)
[2023-10-14] MEDS ORDERED: CITA20TA6 PO (16:40)
[2023-10-14] MEDS ORDERED: LEVE10003 PO (16:40)
[2023-10-14] MEDS ORDERED: GOOD8.6T2 PO (16:40)
[2023-10-14 17:24] LABS: VALPROIC ACID (DEPAKOTE) 62.4 UG/ML (50.0-100.0)
[2023-10-14 17:26] LABS: BLOOD UREA NITROGEN 25 MG/DL (9-23); CARBON DIOXIDE LEVEL 27 MMOL/L (20-31); CHLORIDE LEVEL 95 MMOL/L (98-107); CREATININE FOR GFR 0.54 MG/DL (0.55-1.30); GLOMERULAR FILTRATION RATE > 60.0 (>45); GLUCOSE, FASTING 105 MG/DL (74-106); POTASSIUM SERUM 3.8 MMOL/L (3.5-5.1); SODIUM LEVEL 129 MMOL/L (136-145)
[2023-10-14 18:01] LABS: BASO % 0.1 % (0.0-1.0); HEMATOCRIT 29.3 % (36.0-47.0); HEMOGLOBIN 10.6 g/dl (12.0-15.5); LYMPH # 1.4 10^3/uL (1.5-5.0); LYMPH % 14.9 % (24.0-44.0); MEAN CORPUSCULAR HEMOGLOBIN 34.5 pg (27.0-33.0); MEAN CORPUSCULAR HGB CONC 36.2 g/dl (32.0-36.5); MEAN CORPUSCULAR VOLUME 95.4 fl (80.0-96.0); MONO # 1.2 10^3/uL (0.0-0.8); MONO % 13.3 % (2.0-8.0); NEUTROPHILS # 6.4 10^3/uL (1.5-8.5); NEUTROPHILS % 70.1 % (36.0-66.0); PLATELET COUNT, AUTOMATED 289 10^3/uL (150-450); RED BLOOD COUNT 3.07 10^6/uL (4.00-5.40); WHITE BLOOD COUNT 9.1 10^3/uL (4.0-10.0)
[2023-10-14 18:27] VITALS: BP 166/73
[2023-10-14] MEDS: CHLORTHALIDONE 25 MG TAB PO ONE (18:27)
[2023-10-14] MEDS: LOSARTAN 50MG TABLET PO ONE (18:27)
[2023-10-14 18:30] VITALS: BP 181/72; O2SAT 99
[2023-10-17 16:08] LABS: CARBAMAZEPINE (TEGRETOL) SO 5.4 ug/mL (4.0-12.0); LEVETIRACETAM (KEPPRA) 16.5 ug/mL (10.0-40.0)
== END 2023-10-14 18:58 | disposition home or self-care (01) ==
LOC: EDBD 14:51 → M ED 16:59
DX: R26.89 Other abnormalities of gait and mobility (principal); E87.1 Hypo-osmolality and hyponatremia; I10 Essential (primary) hypertension; R29.6 Repeated falls; K21.9 Gastro-esophageal reflux disease without esophagitis; E78.5 Hyperlipidemia, unspecified; G40.909 Epilepsy, unspecified, not intractable, without status epilepticus; Z88.0 Allergy status to penicillin; Z88.1 Allergy status to other antibiotic agents; Z88.2 Allergy status to sulfonamides; Z88.8 Allergy status to other drugs, medicaments and biological substances; Y92.009 Unspecified place in unspecified non-institutional (private) residence as the place of occurrence of the external cause; Y93.89 Activity, other specified; Y99.9 Unspecified external cause status

== ENCOUNTER 2023-10-16 21:47 | Observation (INO) | payer MEDICARE, MEDICAID ==
[~2023-10-16] VITALS: Ht 165.1 cm; Wt 91.2 kg
[~2023-10-16 21:47] MED LIST changes: +ASPI-226 PO; +BRIN15DR; +CITA20TA6 PO; +GOOD8.6T2 PO; +HYDR12.55 PO; +LATA1DRO; +LEVE10003 PO; +LEVO112T2; +OMEP40CA5; +SALI0.6530 NARES; -SODI88SP NARES
[2023-10-16] MEDS ORDERED: NS 1,000 ML IV ONE (22:15)
[2023-10-16 22:56] LABS: BASO % 0.1 % (0.0-1.0); HEMATOCRIT 27.8 % (36.0-47.0); HEMOGLOBIN 9.9 g/dl (12.0-15.5); LYMPH # 1.6 10^3/uL (1.5-5.0); LYMPH % 19.5 % (24.0-44.0); MEAN CORPUSCULAR HEMOGLOBIN 34.7 pg (27.0-33.0); MEAN CORPUSCULAR HGB CONC 35.6 g/dl (32.0-36.5); MEAN CORPUSCULAR VOLUME 97.5 fl (80.0-96.0); MONO # 0.9 10^3/uL (0.0-0.8); MONO % 10.6 % (2.0-8.0); NEUTROPHILS # 5.4 10^3/uL (1.5-8.5); NEUTROPHILS % 66.2 % (36.0-66.0); PLATELET COUNT, AUTOMATED 247 10^3/uL (150-450); RED BLOOD COUNT 2.85 10^6/uL (4.00-5.40); WHITE BLOOD COUNT 8.2 10^3/uL (4.0-10.0)
[2023-10-16 23:08] LABS: INR 1.19; PROTHROMBIN TIME 14.7 SECONDS (12.5-14.5)
[2023-10-16 23:09] LABS: PARTIAL THROMBOPLASTIN TIME 36.4 SECONDS (24.8-34.2)
[2023-10-16 23:16] LABS: LIPASE 31 U/L (12-53)
[2023-10-16 23:18] LABS: ALBUMIN 2.3 G/DL (3.2-5.2); ALKALINE PHOSPHATASE 86 U/L (46-116); ALT/SGPT 14 U/L (7.0-40); AST/SGOT 22 U/L (<34); BILIRUBIN,DIRECT 0.1 MG/DL (<0.4); BILIRUBIN,TOTAL 0.3 MG/DL (0.3-1.2); BLOOD UREA NITROGEN 27 MG/DL (9-23); CALCIUM LEVEL 8.5 MG/DL (8.3-10.6); CARBON DIOXIDE LEVEL 27 MMOL/L (20-31); CHLORIDE LEVEL 93 MMOL/L (98-107); CPK CREATINE PHOSPHOKINASE 111 U/L (34-145); CREATININE FOR GFR 0.78 MG/DL (0.55-1.30); GLOMERULAR FILTRATION RATE > 60.0 (>45); GLUCOSE, FASTING 97 MG/DL (74-106); POTASSIUM SERUM 3.3 MMOL/L (3.5-5.1); SODIUM LEVEL 129 MMOL/L (136-145); TOTAL PROTEIN 6.4 G/DL (5.7-8.2)
[2023-10-16 23:19] LABS: CK-MB VALUE MASS 1.4 NG/ML (<3.6); MB/CK RELATIVE INDEX 1.26 (< OR =4)
[2023-10-17] MEDS ORDERED: ONDANSETRON 4MG 2ML VIAL IV ONE (01:00)
[2023-10-17 01:27] LABS: CK-MB VALUE MASS 1.1 NG/ML (<3.6)
[2023-10-17 01:29] LABS: MB/CK RELATIVE INDEX 1.15 (< OR =4)
[2023-10-17] MEDS ORDERED: MOM 30ML SUSPENSION UDC PO PRN (03:35)
[2023-10-17 05:01] LABS: THYROXINE (T4) 6.6 UG/DL (4.5-10.9)
[2023-10-17 05:09] LABS: THYROID STIMULATING HORMONE 1.145 uIU/ML (0.55-4.78)
[2023-10-17 05:52] VITALS: BP 134/82; TEMP 97.3; O2SAT 100
[2023-10-17] MEDS: ACETAMINOPHEN TAB 650MG DOSE (2X325MG) PO PRN (08:15)
[2023-10-17] MEDS ORDERED: DOCUSATE SODIUM 100MG CAPSULE PO SCH (09:00)
[2023-10-17] MEDS ORDERED: HOME MED LIST COMPLETE! XX SCH (10:30)
[2023-10-17] MEDS ORDERED: POTASSIUM CHLORIDE 10MEQ SR TABLET PO ONE (10:45)
[2023-10-17] MEDS ORDERED: FLUTICASONE PROP 0.05% NASAL SPRAY 16 GM (FLONASE) PRN (10:55)
[2023-10-17] MEDS ORDERED: ALBUTEROL 90 MCG/ACT 8GM HFA INHALER INH PRN (10:55)
[2023-10-17] MEDS ORDERED: MIRALAX *UNIT DOSE* 17GM PACKET PO PRN (10:55)
[2023-10-17 11:48] LABS: BLOOD UREA NITROGEN 23 MG/DL (9-23); CALCIUM LEVEL 8.2 MG/DL (8.3-10.6); CARBON DIOXIDE LEVEL 29 MMOL/L (20-31); CHLORIDE LEVEL 97 MMOL/L (98-107); CREATININE FOR GFR 0.61 MG/DL (0.55-1.30); GLOMERULAR FILTRATION RATE > 60.0 (>45); GLUCOSE, FASTING 96 MG/DL (74-106); IRON (FE) 74 UG/DL (50-170); POTASSIUM SERUM 3.5 MMOL/L (3.5-5.1); SODIUM LEVEL 130 MMOL/L (136-145); TOTAL IRON BINDING CAPACITY 200 UG/DL (250-425)
[2023-10-17 11:50] LABS: FERRITIN 947.5 NG/ML (7.3-270.7)
[2023-10-17 11:51] LABS: FOLATE 6.9 NG/ML (>5.4); VITAMIN B12 LEVEL 1323 PG/ML (211-911)
[2023-10-17] MEDS: CitaloPRAM (CeleXA) 20 MG TAB PO SCH (13:21)
[2023-10-17] MEDS: carBAMazepine 200MG TABLET PO SCH ×2 (13:21→22:00)
[2023-10-17] MEDS: ASPIRIN 81MG ENTERIC TABLET PO SCH (13:21)
[2023-10-17] MEDS: LEVOTHYROXINE 112MCG TABLET (0.112MG) PO SCH (13:21)
[2023-10-17] MEDS: ATORVASTATIN 20 MG TAB PO SCH (13:21)
[2023-10-17] MEDS: OMEPRAZOLE 20MG CAP PO SCH (13:21)
[2023-10-17] MEDS: MAGNESIUM OXIDE 400MG TAB (MAG-OX) PO SCH ×2 (13:21→22:00)
[2023-10-17] MEDS: levETIRAcetam 250MG TABLET (KEPPRA) PO SCH ×2 (13:22→22:00)
[2023-10-17 14:29] VITALS: BP 142/76; TEMP 97.3; O2SAT 97
[2023-10-17] MEDS: DIVALPROEX 500 MG TAB PO SCH ×2 (14:35→22:00)
[2023-10-17 20:28] VITALS: BP 162/60; TEMP 97.3; O2SAT 96
[2023-10-17] MEDS: BRINZOLAMIDE 1% OPHTH SUSP (AZOPT) 10ML OU SCH (22:00)
[2023-10-17] MEDS: LATANOPROST 0.005% OPHTH SOLN 2.5 ML OU SCH (22:00)
[2023-10-17] MEDS: SENOKOT S TAB PO SCH (22:00)
[2023-10-18] MEDS: LEVOTHYROXINE 112MCG TABLET (0.112MG) PO SCH (05:58)
[2023-10-18 06:00] VITALS: BP 159/62; TEMP 97.2; O2SAT 97
[2023-10-18 06:31] LABS: HEMATOCRIT 27.3 % (36.0-47.0); HEMOGLOBIN 9.5 g/dl (12.0-15.5); MEAN CORPUSCULAR HEMOGLOBIN 34.7 pg (27.0-33.0); MEAN CORPUSCULAR HGB CONC 34.8 g/dl (32.0-36.5); MEAN CORPUSCULAR VOLUME 99.6 fl (80.0-96.0); PLATELET COUNT, AUTOMATED 211 10^3/uL (150-450); RED BLOOD COUNT 2.74 10^6/uL (4.00-5.40)
[2023-10-18 06:56] LABS: PHOSPHORUS LEVEL 2.8 MG/DL (2.4-5.1)
[2023-10-18 07:07] LABS: PROCALCITONIN 0.06 ng/ml
[2023-10-18] MEDS ORDERED: INFLUENZA QUADRIVALENT PF VACCINE 0.5ML SYRINGE IM.IMMUN ONE (09:00)
[2023-10-18] MEDS: levETIRAcetam 250MG TABLET (KEPPRA) PO SCH ×2 (09:24→22:00)
[2023-10-18] MEDS: DIVALPROEX 500 MG TAB PO SCH ×2 (09:25→22:00)
[2023-10-18] MEDS: SENOKOT S TAB PO SCH ×2 (09:27→22:00)
[2023-10-18] MEDS: CitaloPRAM (CeleXA) 20 MG TAB PO SCH (09:27)
[2023-10-18] MEDS: carBAMazepine 200MG TABLET PO SCH ×3 (09:27→22:00)
[2023-10-18] MEDS: ASPIRIN 81MG ENTERIC TABLET PO SCH (09:27)
[2023-10-18] MEDS: ATORVASTATIN 20 MG TAB PO SCH (09:28)
[2023-10-18] MEDS: MAGNESIUM OXIDE 400MG TAB (MAG-OX) PO SCH ×2 (09:28→22:00)
[2023-10-18] MEDS: OMEPRAZOLE 20MG CAP PO SCH (09:28)
[2023-10-18] MEDS: FUROSEMIDE 20 MG TAB PO SCH (12:02)
[2023-10-18] MEDS: BRINZOLAMIDE 1% OPHTH SUSP (AZOPT) 10ML OU SCH (22:00)
[2023-10-18] MEDS: LATANOPROST 0.005% OPHTH SOLN 2.5 ML OU SCH (22:00)
[2023-10-18] MEDS: ACETAMINOPHEN TAB 650MG DOSE (2X325MG) PO PRN (22:01)
[2023-10-19 04:20] VITALS: BP 171/68; TEMP 97.3; O2SAT 96
[2023-10-19] MEDS: LEVOTHYROXINE 112MCG TABLET (0.112MG) PO SCH (05:20)
[2023-10-19] MEDS: levETIRAcetam 250MG TABLET (KEPPRA) PO SCH ×2 (08:58→20:40)
[2023-10-19] MEDS: DIVALPROEX 500 MG TAB PO SCH ×2 (08:59→20:40)
[2023-10-19] MEDS: SENOKOT S TAB PO SCH ×2 (09:00→20:40)
[2023-10-19] MEDS: CitaloPRAM (CeleXA) 20 MG TAB PO SCH (09:00)
[2023-10-19] MEDS: ASPIRIN 81MG ENTERIC TABLET PO SCH (09:00)
[2023-10-19] MEDS: MAGNESIUM OXIDE 400MG TAB (MAG-OX) PO SCH ×2 (09:01→20:40)
[2023-10-19] MEDS: ATORVASTATIN 20 MG TAB PO SCH (09:01)
[2023-10-19] MEDS: carBAMazepine 200MG TABLET PO SCH ×3 (09:01→20:40)
[2023-10-19] MEDS: OMEPRAZOLE 20MG CAP PO SCH (09:02)
[2023-10-19] MEDS: ACETAMINOPHEN TAB 650MG DOSE (2X325MG) PO PRN ×2 (10:12→20:40)
[2023-10-19 13:30] VITALS: BP 135/55; TEMP 97.5; O2SAT 93
[2023-10-19] MEDS: MAALOX 30 ML SUSP *UDC PO PRN (17:54)
[2023-10-19] MEDS: SODIUM CHLORIDE NASAL 0.65% SPRAY BTL (OCEAN) SCH (20:40)
[2023-10-19] MEDS: BRINZOLAMIDE 1% OPHTH SUSP (AZOPT) 10ML OU SCH (20:40)
[2023-10-19] MEDS: LATANOPROST 0.005% OPHTH SOLN 2.5 ML OU SCH (20:40)
[2023-10-20 05:26] VITALS: BP 146/72; TEMP 97.9; O2SAT 95
[2023-10-20] MEDS: LEVOTHYROXINE 112MCG TABLET (0.112MG) PO SCH (05:29)
[2023-10-20 07:53] LABS: ALBUMIN 2.1 G/DL (3.2-5.2); ALKALINE PHOSPHATASE 90 U/L (46-116); ALT/SGPT 12 U/L (7.0-40); AST/SGOT 21 U/L (<34); BILIRUBIN,TOTAL 0.2 MG/DL (0.3-1.2); BLOOD UREA NITROGEN 12 MG/DL (9-23); CALCIUM LEVEL 8.8 MG/DL (8.3-10.6); CARBON DIOXIDE LEVEL 27 MMOL/L (20-31); CHLORIDE LEVEL 98 MMOL/L (98-107); CREATININE FOR GFR 0.54 MG/DL (0.55-1.30); GLOMERULAR FILTRATION RATE > 60.0 (>45); GLUCOSE, FASTING 74 MG/DL (74-106); MAGNESIUM LEVEL 1.7 MG/DL (1.8-2.4); PHOSPHORUS LEVEL 2.8 MG/DL (2.4-5.1); POTASSIUM SERUM 4.4 MMOL/L (3.5-5.1); SODIUM LEVEL 130 MMOL/L (136-145); TOTAL PROTEIN 5.9 G/DL (5.7-8.2)
[2023-10-20] MEDS: OMEPRAZOLE 20MG CAP PO SCH (09:34)
[2023-10-20] MEDS: levETIRAcetam 250MG TABLET (KEPPRA) PO SCH ×2 (09:35→21:33)
[2023-10-20] MEDS: ATORVASTATIN 20 MG TAB PO SCH (09:35)
[2023-10-20] MEDS: CitaloPRAM (CeleXA) 20 MG TAB PO SCH (09:35)
[2023-10-20] MEDS: SENOKOT S TAB PO SCH ×2 (09:35→21:33)
[2023-10-20] MEDS: carBAMazepine 200MG TABLET PO SCH ×3 (09:35→21:33)
[2023-10-20] MEDS: ASPIRIN 81MG ENTERIC TABLET PO SCH (09:35)
[2023-10-20] MEDS: MAGNESIUM OXIDE 400MG TAB (MAG-OX) PO SCH ×2 (09:35→21:33)
[2023-10-20] MEDS: DIVALPROEX 500 MG TAB PO SCH ×2 (09:36→21:32)
[2023-10-20] MEDS: SODIUM CHLORIDE NASAL 0.65% SPRAY BTL (OCEAN) SCH ×2 (09:36→21:34)
[2023-10-20] MEDS: FUROSEMIDE 20 MG TAB PO SCH (11:04)
[2023-10-20] MEDS: MAALOX 30 ML SUSP *UDC PO PRN (17:58)
[2023-10-20] MEDS: LATANOPROST 0.005% OPHTH SOLN 2.5 ML OU SCH (21:34)
[2023-10-20] MEDS: BRINZOLAMIDE 1% OPHTH SUSP (AZOPT) 10ML OU SCH (21:34)
[2023-10-21] MEDS: LEVOTHYROXINE 112MCG TABLET (0.112MG) PO SCH (05:23)
[2023-10-21 06:02] VITALS: BP 152/60; TEMP 97.9; O2SAT 99
[2023-10-21] MEDS: MAGNESIUM OXIDE 400MG TAB (MAG-OX) PO SCH ×2 (08:06→20:04)
[2023-10-21] MEDS: CitaloPRAM (CeleXA) 20 MG TAB PO SCH (08:07)
[2023-10-21] MEDS: ATORVASTATIN 20 MG TAB PO SCH (08:07)
[2023-10-21] MEDS: carBAMazepine 200MG TABLET PO SCH ×3 (08:07→20:04)
[2023-10-21] MEDS: OMEPRAZOLE 20MG CAP PO SCH (08:07)
[2023-10-21] MEDS: ASPIRIN 81MG ENTERIC TABLET PO SCH (08:07)
[2023-10-21] MEDS: SENOKOT S TAB PO SCH ×2 (08:07→20:05)
[2023-10-21] MEDS: levETIRAcetam 250MG TABLET (KEPPRA) PO SCH ×2 (08:07→20:04)
[2023-10-21] MEDS: DIVALPROEX 500 MG TAB PO SCH ×2 (08:07→20:04)
[2023-10-21] MEDS: SODIUM CHLORIDE NASAL 0.65% SPRAY BTL (OCEAN) SCH ×2 (08:10→20:05)
[2023-10-21] MEDS: LATANOPROST 0.005% OPHTH SOLN 2.5 ML OU SCH (20:05)
[2023-10-21] MEDS: BRINZOLAMIDE 1% OPHTH SUSP (AZOPT) 10ML OU SCH (20:05)
[2023-10-22] MEDS: LEVOTHYROXINE 112MCG TABLET (0.112MG) PO SCH (05:08)
[2023-10-22 06:00] VITALS: BP 159/81; TEMP 97.9; O2SAT 97
[2023-10-22] MEDS: DIVALPROEX 500 MG TAB PO SCH (08:12)
[2023-10-22] MEDS: CitaloPRAM (CeleXA) 20 MG TAB PO SCH (08:12)
[2023-10-22] MEDS: MAGNESIUM OXIDE 400MG TAB (MAG-OX) PO SCH (08:12)
[2023-10-22] MEDS: carBAMazepine 200MG TABLET PO SCH ×2 (08:12→11:45)
[2023-10-22] MEDS: SENOKOT S TAB PO SCH (08:12)
[2023-10-22] MEDS: ASPIRIN 81MG ENTERIC TABLET PO SCH (08:12)
[2023-10-22 08:13] VITALS: BP 151/60
[2023-10-22] MEDS: ATORVASTATIN 20 MG TAB PO SCH (08:13)
[2023-10-22] MEDS: OMEPRAZOLE 20MG CAP PO SCH (08:13)
[2023-10-22] MEDS: levETIRAcetam 250MG TABLET (KEPPRA) PO SCH (08:13)
[2023-10-22] MEDS: SODIUM CHLORIDE NASAL 0.65% SPRAY BTL (OCEAN) SCH (08:16)
[2023-10-22] MEDS: ACETAMINOPHEN TAB 650MG DOSE (2X325MG) PO PRN (08:19)
[2023-10-22] MEDS ORDERED: FURO20TA2 PO (10:30)
[2023-10-22] MEDS ORDERED: AMLO25TA PO (10:30)
[2023-10-22] MEDS: FUROSEMIDE 20 MG TAB PO SCH (11:46)
== END 2023-10-22 15:35 | disposition home or self-care (01) ==
LOC: M ED 21:47 → EDBD 21:47 → M ED INP 21:48 → UNDOADMOB 10-17 03:31 → INTOOBSV 10-17 03:31 → M ED INP 10-17 03:31 → M MSPAV 10-17 05:52 → UNDODISOB 10-22 15:35
PROVIDERS: ADMIT Internal Medicine; ATTEND Family Medicine
DX: M62.81 Muscle weakness (generalized) (principal); E87.1 Hypo-osmolality and hyponatremia; I10 Essential (primary) hypertension; R29.6 Repeated falls; K21.9 Gastro-esophageal reflux disease without esophagitis; E78.5 Hyperlipidemia, unspecified; G40.909 Epilepsy, unspecified, not intractable, without status epilepticus; Z88.0 Allergy status to penicillin; Z88.1 Allergy status to other antibiotic agents; Z88.2 Allergy status to sulfonamides; Z88.8 Allergy status to other drugs, medicaments and biological substances; Y92.009 Unspecified place in unspecified non-institutional (private) residence as the place of occurrence of the external cause; Y93.89 Activity, other specified; Y99.9 Unspecified external cause status; E03.9 Hypothyroidism, unspecified; E66.01 Morbid (severe) obesity due to excess calories; Z23 Encounter for immunization; M54.50 Low back pain, unspecified; R60.0 Localized edema; D50.9 Iron deficiency anemia, unspecified
CPT/HCPCS: 36415; 51701; 70450; 70486; 71045; 72125; 80048; 80053; 80076; 81001; 82550; 82553; 82607; 82728; 82746; 83550; 83605; 83690; 83735; 84100; 84145; 84436; 84443; 84484; 85025; 85027; 85610; 85730; 87040; 87486; 87581; 87633; 87798; 90686; 93005; 93041; 93306; 93970; 96374; 96375; 97161; 97165; 97530; 97535; 99285; G0008; G0378; J2405

== ENCOUNTER → 2023-10-24 | Outpatient (CLI) | payer MEDICARE, MEDICAID ==
[~2023-10-24] MED LIST changes: +AMLO25TA PO; +FURO20TA2 PO
[2023-10-24 13:27] LABS: BASO % 0.4 % (0.0-1.0); EOS % 0.5 % (0.0-3.0); LYMPH # 1.8 10^3/uL (1.5-5.0); LYMPH % 23.7 % (24.0-44.0); MEAN CORPUSCULAR HEMOGLOBIN 34.8 pg (27.0-33.0); MEAN CORPUSCULAR HGB CONC 34.4 g/dl (32.0-36.5); MEAN CORPUSCULAR VOLUME 101.3 fl (80.0-96.0); MONO # 0.6 10^3/uL (0.0-0.8); MONO % 8.2 % (2.0-8.0); NEUTROPHILS # 5.1 10^3/uL (1.5-8.5); NEUTROPHILS % 65.4 % (36.0-66.0); PLATELET COUNT, AUTOMATED 234 10^3/uL (150-450); RED BLOOD COUNT 3.16 10^6/uL (4.00-5.40); WHITE BLOOD COUNT 7.8 10^3/uL (4.0-10.0)
[2023-10-24 13:59] LABS: ALBUMIN 2.9 G/DL (3.2-5.2); ALKALINE PHOSPHATASE 117 U/L (46-116); ALT/SGPT 12 U/L (7.0-40); AST/SGOT 18 U/L (<34); BILIRUBIN,TOTAL 0.3 MG/DL (0.3-1.2); BLOOD UREA NITROGEN 16 MG/DL (9-23); CALCIUM LEVEL 8.8 MG/DL (8.3-10.6); CARBON DIOXIDE LEVEL 26 MMOL/L (20-31); CHLORIDE LEVEL 98 MMOL/L (98-107); CREATININE FOR GFR 0.69 MG/DL (0.55-1.30); FREE T4 1.17 NG/DL (0.89-1.76); GLOMERULAR FILTRATION RATE > 60.0 (>45); GLUCOSE, FASTING 82 MG/DL (74-106); POTASSIUM SERUM 3.9 MMOL/L (3.5-5.1); SODIUM LEVEL 130 MMOL/L (136-145); TOTAL PROTEIN 7.1 G/DL (5.7-8.2)
== END ==
LOC: M PLALAB 11:10
PROVIDERS: ATTEND Physician Assistant
DX: E87.1 Hypo-osmolality and hyponatremia (principal); G40.909 Epilepsy, unspecified, not intractable, without status epilepticus; E03.9 Hypothyroidism, unspecified; R29.6 Repeated falls

== ENCOUNTER → 2023-11-10 | Outpatient (CLI) | payer MEDICARE, MEDICAID ==
[2023-11-10 12:34] LABS: BASO % 0.3 % (0.0-1.0); EOS # 0.1 10^3/uL (0.0-0.5); EOS % 2.1 % (0.0-3.0); HEMATOCRIT 30.5 % (36.0-47.0); HEMOGLOBIN 10.7 g/dl (12.0-15.5); LYMPH # 1.6 10^3/uL (1.5-5.0); LYMPH % 26.1 % (24.0-44.0); MEAN CORPUSCULAR HEMOGLOBIN 35.7 pg (27.0-33.0); MEAN CORPUSCULAR HGB CONC 35.1 g/dl (32.0-36.5); MEAN CORPUSCULAR VOLUME 101.7 fl (80.0-96.0); MONO # 0.4 10^3/uL (0.0-0.8); MONO % 7.1 % (2.0-8.0); NEUTROPHILS % 63.9 % (36.0-66.0); PLATELET COUNT, AUTOMATED 122 10^3/uL (150-450); WHITE BLOOD COUNT 6.2 10^3/uL (4.0-10.0)
[2023-11-10 12:49] LABS: ALBUMIN 2.7 G/DL (3.2-5.2); ALKALINE PHOSPHATASE 112 U/L (46-116); ALT/SGPT < 9 U/L (7.0-40); AST/SGOT 14 U/L (<34); BILIRUBIN,TOTAL 0.3 MG/DL (0.3-1.2); BLOOD UREA NITROGEN 15 MG/DL (9-23); CALCIUM LEVEL 8.9 MG/DL (8.3-10.6); CARBON DIOXIDE LEVEL 28 MMOL/L (20-31); CHLORIDE LEVEL 98 MMOL/L (98-107); CREATININE FOR GFR 0.76 MG/DL (0.55-1.30); GLOMERULAR FILTRATION RATE > 60.0 (>45); GLUCOSE, FASTING 81 MG/DL (74-106); IRON (FE) 113 UG/DL (50-170); PERCENT SATURATION 43.8 % (13.2-45.0); POTASSIUM SERUM 4.1 MMOL/L (3.5-5.1); SODIUM LEVEL 130 MMOL/L (136-145); TOTAL IRON BINDING CAPACITY 258 UG/DL (250-425); TOTAL PROTEIN 6.5 G/DL (5.7-8.2)
[2023-11-10 12:52] LABS: FERRITIN 561.7 NG/ML (7.3-270.7); VITAMIN B12 LEVEL 1051 PG/ML (211-911)
== END ==
LOC: M PLALAB 10:39
PROVIDERS: ATTEND Nurse Practitioner Family
DX: E61.1 Iron deficiency (principal); E87.1 Hypo-osmolality and hyponatremia

== ENCOUNTER 2023-11-21 00:02 | Emergency (ER) | payer MEDICARE, MEDICAID ==
[~2023-11-21] VITALS: Ht 167.6 cm; Wt 86.4 kg
[2023-11-21 00:45] LABS: BASO % 0.6 % (0.0-1.0); EOS # 0.2 10^3/uL (0.0-0.5); EOS % 3.2 % (0.0-3.0); HEMATOCRIT 32.4 % (36.0-47.0); HEMOGLOBIN 11.3 g/dl (12.0-15.5); LYMPH # 1.9 10^3/uL (1.5-5.0); LYMPH % 39.7 % (24.0-44.0); MEAN CORPUSCULAR HEMOGLOBIN 35.4 pg (27.0-33.0); MEAN CORPUSCULAR HGB CONC 34.9 g/dl (32.0-36.5); MEAN CORPUSCULAR VOLUME 101.6 fl (80.0-96.0); MONO # 0.4 10^3/uL (0.0-0.8); MONO % 8.3 % (2.0-8.0); NEUTROPHILS # 2.2 10^3/uL (1.5-8.5); NEUTROPHILS % 47.3 % (36.0-66.0); PLATELET COUNT, AUTOMATED 117 10^3/uL (150-450); RED BLOOD COUNT 3.19 10^6/uL (4.00-5.40); WHITE BLOOD COUNT 4.7 10^3/uL (4.0-10.0)
[2023-11-21 01:14] LABS: BLOOD UREA NITROGEN 23 MG/DL (9-23); CARBON DIOXIDE LEVEL 28 MMOL/L (20-31); CHLORIDE LEVEL 98 MMOL/L (98-107); CREATININE FOR GFR 0.85 MG/DL (0.55-1.30); GLOMERULAR FILTRATION RATE > 60.0 (>45); GLUCOSE, FASTING 129 MG/DL (74-106); MAGNESIUM LEVEL 1.8 MG/DL (1.8-2.4); POTASSIUM SERUM 3.3 MMOL/L (3.5-5.1); SODIUM LEVEL 134 MMOL/L (136-145)
[2023-11-21 01:17] LABS: THYROID STIMULATING HORMONE 0.868 uIU/ML (0.55-4.78)
[2023-11-21] MEDS ORDERED: POTASSIUM CHLORIDE 10% LIQ 20MEQ/15ML UDC PO ONE (01:25)
[2023-11-21] MEDS ORDERED: ONDANSETRON 4MG 2ML VIAL As Ordered ONE (01:48)
[2023-11-21] MEDS ORDERED: ONDANSETRON 4MG 2ML VIAL IV ONE (01:50)
[2023-11-21] MEDS ORDERED: MAGNESIUM OXIDE 400MG TAB (MAG-OX) PO ONE (06:35)
[2023-11-21] MEDS ORDERED: OMEPRAZOLE 20MG CAP PO ONE (06:35)
[2023-11-21] MEDS ORDERED: LEVOTHYROXINE 112MCG TABLET (0.112MG) PO STA (06:35)
[2023-11-21] MEDS ORDERED: levETIRAcetam 250MG TABLET (KEPPRA) PO ONE (06:35)
[2023-11-21] MEDS ORDERED: amLODIPine 5 MG TAB PO ONE ×2 (06:35→06:40)
[2023-11-21] MEDS ORDERED: ATORVASTATIN 20 MG TAB PO ONE (06:35)
[2023-11-21] MEDS ORDERED: CitaloPRAM (CeleXA) 20 MG TAB PO ONE (06:35)
[2023-11-21 06:48] VITALS: BP 231/97
[2023-11-21 09:00] VITALS: BP 151/67; TEMP 97.8; O2SAT 98
== END 2023-11-21 09:15 | disposition home or self-care (01) ==
LOC: M ED 00:02
DX: S00.03XA Contusion of scalp, initial encounter (principal); W19.XXXA Unspecified fall, initial encounter; R00.1 Bradycardia, unspecified; G40.909 Epilepsy, unspecified, not intractable, without status epilepticus; I10 Essential (primary) hypertension; K21.9 Gastro-esophageal reflux disease without esophagitis; Z88.0 Allergy status to penicillin; Z88.1 Allergy status to other antibiotic agents; Z88.2 Allergy status to sulfonamides; Z88.8 Allergy status to other drugs, medicaments and biological substances; Y92.009 Unspecified place in unspecified non-institutional (private) residence as the place of occurrence of the external cause; Y93.9 Activity, unspecified; Y99.9 Unspecified external cause status; Z79.52 Long term (current) use of systemic steroids; Z79.02 Long term (current) use of antithrombotics/antiplatelets; Z79.82 Long term (current) use of aspirin; Z79.83 Long term (current) use of bisphosphonates; Z79.899 Other long term (current) drug therapy
CPT/HCPCS: 70450; 71045; 73521; 80048; 83735; 84443; 85025; 87486; 87581; 87633; 87798; 93005; 96374; 97116; 97161; 99285; J2405

== ENCOUNTER 2023-12-05 11:06 | Emergency (ER) | payer MEDICARE, MEDICAID ==
[~2023-12-05] VITALS: Ht 165.1 cm; Wt 85.0 kg
[~2023-12-05 11:06] MED LIST changes: -SALI0.6530 NARES; +SODI88SP NARES
[2023-12-05 11:24] VITALS: BP 158/66; TEMP 97.1; O2SAT 100
[2023-12-05 12:17] LABS: BASO % 0.4 % (0.0-1.0); EOS # 0.1 10^3/uL (0.0-0.5); EOS % 1.3 % (0.0-3.0); HEMATOCRIT 28.9 % (36.0-47.0); HEMOGLOBIN 10.4 g/dl (12.0-15.5); LYMPH # 1.5 10^3/uL (1.5-5.0); LYMPH % 26.7 % (24.0-44.0); MEAN CORPUSCULAR HEMOGLOBIN 35.7 pg (27.0-33.0); MEAN CORPUSCULAR VOLUME 99.3 fl (80.0-96.0); MONO # 0.5 10^3/uL (0.0-0.8); MONO % 9.7 % (2.0-8.0); NEUTROPHILS # 3.4 10^3/uL (1.5-8.5); NEUTROPHILS % 61.5 % (36.0-66.0); RED BLOOD COUNT 2.91 10^6/uL (4.00-5.40); WHITE BLOOD COUNT 5.5 10^3/uL (4.0-10.0)
[2023-12-05 12:22] LABS: ERYTHROCYTE SEDIMENTATION RATE 23 mm/hr (0-30)
[2023-12-05 12:27] LABS: INR 0.98; PARTIAL THROMBOPLASTIN TIME 25.7 SECONDS (24.8-34.2); PROTHROMBIN TIME 12.7 SECONDS (12.5-14.5)
[2023-12-05 12:37] LABS: C REACTIVE PROTEIN QUANTITATIV < 0.40 MG/DL (<1.0); LIPASE 34 U/L (12-53); VALPROIC ACID (DEPAKOTE) 115.6 UG/ML (50.0-100.0)
[2023-12-05 12:38] LABS: IRON (FE) 106 UG/DL (50-170)
[2023-12-05 12:39] LABS: ALBUMIN 2.7 G/DL (3.2-5.2); ALKALINE PHOSPHATASE 72 U/L (46-116); ALT/SGPT < 9 U/L (7.0-40); AST/SGOT 18 U/L (<34); BILIRUBIN,DIRECT 0.1 MG/DL (<0.4); BILIRUBIN,TOTAL 0.4 MG/DL (0.3-1.2); BLOOD UREA NITROGEN 24 MG/DL (9-23); CALCIUM LEVEL 8.4 MG/DL (8.3-10.6); CARBON DIOXIDE LEVEL 30 MMOL/L (20-31); CHLORIDE LEVEL 96 MMOL/L (98-107); CREATININE FOR GFR 0.94 MG/DL (0.55-1.30); GLOMERULAR FILTRATION RATE > 60.0 (>45); GLUCOSE, FASTING 84 MG/DL (74-106); MAGNESIUM LEVEL 1.8 MG/DL (1.8-2.4); POTASSIUM SERUM 3.5 MMOL/L (3.5-5.1); SODIUM LEVEL 131 MMOL/L (136-145); TOTAL IRON BINDING CAPACITY 265 UG/DL (250-425); TOTAL PROTEIN 6.2 G/DL (5.7-8.2)
[2023-12-05 12:40] LABS: FERRITIN 365.1 NG/ML (7.3-270.7); FREE T4 0.98 NG/DL (0.89-1.76); THYROID STIMULATING HORMONE 1.398 uIU/ML (0.55-4.78)
[2023-12-05 12:41] LABS: PLATELET COUNT, AUTOMATED 92 10^3/uL (150-450)
[2023-12-05 13:07] LABS: RSV AMPLIFICATION NEGATIVE (NEGATIVE)
[2023-12-08 15:08] LABS: CARBAMAZEPINE (TEGRETOL) SO 9.3 ug/mL (4.0-12.0); LEVETIRACETAM (KEPPRA) 45.9 ug/mL (10.0-40.0)
== END 2023-12-05 14:10 | disposition home or self-care (01) ==
LOC: EDUNIT# 11:06 → EDBD 11:06 → M ED 11:06
DX: R23.3 Spontaneous ecchymoses (principal); W07.XXXA Fall from chair, initial encounter; I50.22 Chronic systolic (congestive) heart failure; E78.5 Hyperlipidemia, unspecified; I10 Essential (primary) hypertension; Y92.531 Health care provider office as the place of occurrence of the external cause; Y93.89 Activity, other specified; Y99.9 Unspecified external cause status; Z88.0 Allergy status to penicillin; Z88.1 Allergy status to other antibiotic agents; Z88.2 Allergy status to sulfonamides; Z88.8 Allergy status to other drugs, medicaments and biological substances; Z79.52 Long term (current) use of systemic steroids; Z79.02 Long term (current) use of antithrombotics/antiplatelets; Z79.82 Long term (current) use of aspirin; Z79.83 Long term (current) use of bisphosphonates; Z79.899 Other long term (current) drug therapy
CPT/HCPCS: 36415; 70450; 71046; 72125; 72128; 72131; 73080; 80048; 80076; 80156; 80164; 80180; 82728; 83036; 83550; 83690; 83735; 84439; 84443; 85025; 85049; 85055; 85610; 85652; 85730; 86140; 87631; 99284; G0463

== ENCOUNTER 2023-12-08 22:51 | Inpatient (IN) | payer MEDICARE, MEDICAID ==
[2023-12-08 23:17] LABS: BASO % 0.4 % (0.0-1.0); EOS # 0.1 10^3/uL (0.0-0.5); EOS % 1.1 % (0.0-3.0); HEMATOCRIT 29.2 % (36.0-47.0); HEMOGLOBIN 10.5 g/dl (12.0-15.5); LYMPH # 1.8 10^3/uL (1.5-5.0); LYMPH % 33.8 % (24.0-44.0); MEAN CORPUSCULAR HEMOGLOBIN 35.8 pg (27.0-33.0); MEAN CORPUSCULAR VOLUME 99.7 fl (80.0-96.0); MONO # 0.5 10^3/uL (0.0-0.8); MONO % 8.8 % (2.0-8.0); NEUTROPHILS % 55.5 % (36.0-66.0); PLATELET COUNT, AUTOMATED 105 10^3/uL (150-450); RED BLOOD COUNT 2.93 10^6/uL (4.00-5.40); WHITE BLOOD COUNT 5.4 10^3/uL (4.0-10.0)
[2023-12-08 23:28] LABS: INR 0.96; PROTHROMBIN TIME 12.5 SECONDS (12.5-14.5)
[2023-12-08 23:39] LABS: CK-MB VALUE MASS 3.4 NG/ML (<3.6)
[2023-12-08 23:41] LABS: ALBUMIN 2.9 G/DL (3.2-5.2); ALKALINE PHOSPHATASE 75 U/L (46-116); ALT/SGPT < 9 U/L (7.0-40); AST/SGOT 22 U/L (<34); BILIRUBIN,DIRECT 0.1 MG/DL (<0.4); BILIRUBIN,TOTAL 0.3 MG/DL (0.3-1.2); BLOOD UREA NITROGEN 26 MG/DL (9-23); CALCIUM LEVEL 8.4 MG/DL (8.3-10.6); CARBON DIOXIDE LEVEL 29 MMOL/L (20-31); CHLORIDE LEVEL 94 MMOL/L (98-107); CREATININE FOR GFR 1.09 MG/DL (0.55-1.30); GLOMERULAR FILTRATION RATE 53.8 (>45); GLUCOSE, FASTING 103 MG/DL (74-106); POTASSIUM SERUM 3.1 MMOL/L (3.5-5.1); SODIUM LEVEL 129 MMOL/L (136-145); TOTAL PROTEIN 6.5 G/DL (5.7-8.2)
[2023-12-08 23:42] LABS: CPK CREATINE PHOSPHOKINASE 110 U/L (34-145); MB/CK RELATIVE INDEX 3.09 (< OR =4)
[2023-12-09] MEDS: hydrALAZINE 20MG/ML 1ML VIAL IV ONE (00:15)
[2023-12-09] MEDS: POTASSIUM CHLORIDE 10% LIQ 20MEQ/15ML UDC PO ONE (01:52)
[2023-12-09] MEDS: amLODIPine 5 MG TAB PO ONE (01:53)
[2023-12-09 02:30] LABS: RSV AMPLIFICATION NEGATIVE (NEGATIVE)
[2023-12-09] MEDS ORDERED: ALBUTEROL SULFATE 2.5MG/0.5ML INH NEB SOLN NEB PRN (03:35)
[2023-12-09] MEDS: NS 1,000 ML IV SCH (04:15)
[2023-12-09] MEDS: ONDANSETRON 4MG 2ML VIAL IV PRN (04:15)
[2023-12-09 04:53] LABS: VALPROIC ACID (DEPAKOTE) 98.9 UG/ML (50.0-100.0)
[2023-12-09 04:55] LABS: BLOOD UREA NITROGEN 26 MG/DL (9-23); CALCIUM LEVEL 8.4 MG/DL (8.3-10.6); CARBON DIOXIDE LEVEL 28 MMOL/L (20-31); CHLORIDE LEVEL 93 MMOL/L (98-107); CREATININE FOR GFR 0.86 MG/DL (0.55-1.30); GLOMERULAR FILTRATION RATE > 60.0 (>45); GLUCOSE, FASTING 101 MG/DL (74-106); MAGNESIUM LEVEL 2.2 MG/DL (1.8-2.4); POTASSIUM SERUM 3.7 MMOL/L (3.5-5.1); SODIUM LEVEL 127 MMOL/L (136-145)
[2023-12-09] MEDS: ASPIRIN 81MG CHEW TABLET PO ONE (05:01)
[2023-12-09] MEDS: METOPROLOL TART 25 MG TABLET PO ONE (05:02)
[2023-12-09] MEDS ORDERED: FURO20TA2 PO (05:02)
[2023-12-09] MEDS ORDERED: FERR1TAB8 PO (05:02)
[2023-12-09] MEDS ORDERED: MED REC IN PROGRESS XX SCH (05:05)
[2023-12-09] MEDS: HEPARIN SOD (PORCINE) 5000UNITS/ML 1ML VIAL/SYRINGE SC SCH (06:42)
[2023-12-09] MEDS ORDERED: MIRALAX *UNIT DOSE* 17GM PACKET PO PRN (07:10)
[2023-12-09] MEDS ORDERED: FLUTICASONE PROP 0.05% NASAL SPRAY 16 GM (FLONASE) PRN (07:10)
[2023-12-09] MEDS ORDERED: HOME MED LIST COMPLETE! XX SCH (08:20)
[2023-12-09] MEDS ORDERED: carBAMazepine XR 200 MG TAB PO SCH (09:00)
[2023-12-09] MEDS: METOPROLOL TART 25 MG TABLET PO SCH (09:00)
[2023-12-09] MEDS: FERROUS SULFATE 325MG TAB PO SCH (09:00)
[2023-12-09] MEDS: SENOKOT S TAB PO SCH (09:36)
[2023-12-09] MEDS: LEVOTHYROXINE 112MCG TABLET (0.112MG) PO SCH (09:37)
[2023-12-09] MEDS: levETIRAcetam 250MG TABLET (KEPPRA) PO SCH (09:38)
[2023-12-09] MEDS: CitaloPRAM (CeleXA) 20 MG TAB PO SCH (09:38)
[2023-12-09] MEDS: ATORVASTATIN 20 MG TAB PO SCH (09:38)
[2023-12-09] MEDS: DIVALPROEX 500 MG TAB PO SCH (09:38)
[2023-12-09] MEDS: OMEPRAZOLE 20MG CAP PO SCH (09:39)
[2023-12-09] MEDS: carBAMazepine 200MG TABLET PO SCH ×3 (09:40→20:26)
[2023-12-09] MEDS ORDERED: ALBUTEROL 90 MCG/ACT 8GM HFA INHALER INH PRN (10:15)
[2023-12-09 11:58] LABS: FOLATE 2.83 NG/ML (>5.4)
[2023-12-09] MEDS: FOLIC ACID 1MG TAB PO SCH (14:30)
[2023-12-09] MEDS ORDERED: **hydrALAZINE HCL** 25 MG TAB PO PRN (15:55)
[2023-12-09 17:05] VITALS: BP 156/63; TEMP 97.7; O2SAT 99
[2023-12-09] MEDS: SODIUM CHLORIDE 1 GM TAB PO SCH (17:56)
[2023-12-09 22:00] VITALS: BP 148/69; TEMP 97.9; O2SAT 98
[2023-12-10 06:00] VITALS: BP 130/61; TEMP 98.1; O2SAT 98
[2023-12-10 06:35] LABS: BASO % 0.6 % (0.0-1.0); EOS # 0.1 10^3/uL (0.0-0.5); EOS % 1.9 % (0.0-3.0); HEMATOCRIT 25.4 % (36.0-47.0); HEMOGLOBIN 8.9 g/dl (12.0-15.5); LYMPH # 1.4 10^3/uL (1.5-5.0); MEAN CORPUSCULAR HEMOGLOBIN 35.9 pg (27.0-33.0); MEAN CORPUSCULAR VOLUME 102.4 fl (80.0-96.0); MONO # 0.3 10^3/uL (0.0-0.8); MONO % 8.1 % (2.0-8.0); NEUTROPHILS # 1.4 10^3/uL (1.5-8.5); NEUTROPHILS % 44.1 % (36.0-66.0); RED BLOOD COUNT 2.48 10^6/uL (4.00-5.40); WHITE BLOOD COUNT 3.2 10^3/uL (4.0-10.0)
[2023-12-10 06:48] LABS: PLATELET COUNT, AUTOMATED 82 10^3/uL (150-450)
[2023-12-10 06:53] LABS: BLOOD UREA NITROGEN 25 MG/DL (9-23); CALCIUM LEVEL 7.8 MG/DL (8.3-10.6); CARBON DIOXIDE LEVEL 29 MMOL/L (20-31); CHLORIDE LEVEL 99 MMOL/L (98-107); CREATININE FOR GFR 0.85 MG/DL (0.55-1.30); GLOMERULAR FILTRATION RATE > 60.0 (>45); GLUCOSE, FASTING 78 MG/DL (74-106); SODIUM LEVEL 131 MMOL/L (136-145)
[2023-12-10] MEDS: ASPIRIN 81MG ENTERIC TABLET PO SCH (09:39)
[2023-12-10 10:00] VITALS: BP 131/60; TEMP 97.5; O2SAT 97
[2023-12-10 14:00] VITALS: BP 128/60; TEMP 97.7; O2SAT 98
[2023-12-10 20:16] VITALS: BP 149/62; TEMP 97.9; O2SAT 97
[2023-12-11 05:00] VITALS: BP 119/68; TEMP 97.9; O2SAT 98
[2023-12-11 05:50] LABS: BASO % 0.8 % (0.0-1.0); EOS # 0.1 10^3/uL (0.0-0.5); EOS % 2.1 % (0.0-3.0); HEMATOCRIT 24.5 % (36.0-47.0); HEMOGLOBIN 8.7 g/dl (12.0-15.5); LYMPH # 1.7 10^3/uL (1.5-5.0); LYMPH % 45.5 % (24.0-44.0); MEAN CORPUSCULAR HEMOGLOBIN 35.5 pg (27.0-33.0); MEAN CORPUSCULAR HGB CONC 35.5 g/dl (32.0-36.5); MONO # 0.3 10^3/uL (0.0-0.8); MONO % 7.5 % (2.0-8.0); NEUTROPHILS # 1.6 10^3/uL (1.5-8.5); NEUTROPHILS % 43.8 % (36.0-66.0); RED BLOOD COUNT 2.45 10^6/uL (4.00-5.40); WHITE BLOOD COUNT 3.7 10^3/uL (4.0-10.0)
[2023-12-11 05:52] LABS: PLATELET COUNT, AUTOMATED 90 10^3/uL (150-450)
[2023-12-11 06:11] LABS: BLOOD UREA NITROGEN 19 MG/DL (9-23); CALCIUM LEVEL 8.1 MG/DL (8.3-10.6); CARBON DIOXIDE LEVEL 27 MMOL/L (20-31); CHLORIDE LEVEL 99 MMOL/L (98-107); CREATININE FOR GFR 0.66 MG/DL (0.55-1.30); GLOMERULAR FILTRATION RATE > 60.0 (>45); GLUCOSE, FASTING 80 MG/DL (74-106); POTASSIUM SERUM 3.6 MMOL/L (3.5-5.1); SODIUM LEVEL 131 MMOL/L (136-145)
[2023-12-11 08:00] VITALS: BP 136/58; TEMP 97.7; O2SAT 96
[2023-12-11 10:41] VITALS: BP 152/60
[2023-12-11 10:57] LABS: IRON (FE) 124 UG/DL (50-170); TOTAL IRON BINDING CAPACITY 243 UG/DL (250-425)
[2023-12-11 10:59] LABS: FERRITIN 280.6 NG/ML (7.3-270.7)
[2023-12-11] MEDS ORDERED: FOLI1TAB11 PO (13:08)
[2023-12-11] MEDS ORDERED: SODI1TAB6 PO (13:08)
[2023-12-11] MEDS ORDERED: AMLO10TA PO (13:46)
[2023-12-11 14:00] VITALS: BP 158/62; TEMP 97.7; O2SAT 96
== END 2023-12-11 14:58 | disposition home health service (06) | DRG 92 ==
LOC: M ED 22:51 → EDBD 22:51 → M ED INP 12-09 03:32 → ENRESERV 12-09 15:15 → M MSPAV 12-09 17:06
PROVIDERS: ADMIT Internal Medicine; ATTEND Internal Medicine
DX: R29.6 Repeated falls (principal); E22.2 Syndrome of inappropriate secretion of antidiuretic hormone; E46 Unspecified protein-calorie malnutrition; D61.818 Other pancytopenia; G91.2 (Idiopathic) normal pressure hydrocephalus; I16.0 Hypertensive urgency; R26.89 Other abnormalities of gait and mobility; G40.909 Epilepsy, unspecified, not intractable, without status epilepticus; J45.909 Unspecified asthma, uncomplicated; E03.9 Hypothyroidism, unspecified; R53.1 Weakness; K21.9 Gastro-esophageal reflux disease without esophagitis; F39 Unspecified mood [affective] disorder; E78.00 Pure hypercholesterolemia, unspecified; I10 Essential (primary) hypertension; Z79.84 Long term (current) use of oral hypoglycemic drugs; Z79.890 Hormone replacement therapy; Z79.899 Other long term (current) drug therapy; Z88.0 Allergy status to penicillin; Z88.2 Allergy status to sulfonamides; Z88.1 Allergy status to other antibiotic agents; Z88.8 Allergy status to other drugs, medicaments and biological substances; Z20.822 Contact with and (suspected) exposure to COVID-19

== ENCOUNTER 2024-01-11 09:54 | Emergency (ER) | payer MEDICARE, MEDICAID ==
[~2024-01-11] VITALS: Ht 165.1 cm; Wt 83.7 kg
[~2024-01-11 09:54] MED LIST changes: +AMLO10TA PO; +FERR1TAB8 PO; +FOLI1TAB11 PO; +SODI1TAB6 PO
[2024-01-11] MEDS: ACETAMINOPHEN 325 MG TAB PO ONE (11:26)
[2024-01-11 14:30] VITALS: BP 159/71; TEMP 97.9; O2SAT 99
[2024-01-12] MEDS ORDERED: FOLI1TAB11 PO (16:16)
[2024-01-12] MEDS ORDERED: SODI1TAB12 PO (16:16)
== END 2024-01-11 15:40 | disposition home or self-care (01) ==
LOC: EDBD 09:54 → M ED 09:54
DX: S13.4XXA Sprain of ligaments of cervical spine, initial encounter (principal); S60.221A Contusion of right hand, initial encounter; W19.XXXA Unspecified fall, initial encounter; Y92.009 Unspecified place in unspecified non-institutional (private) residence as the place of occurrence of the external cause; Y93.89 Activity, other specified; Y99.9 Unspecified external cause status; R29.6 Repeated falls; I10 Essential (primary) hypertension; R56.9 Unspecified convulsions; Z79.899 Other long term (current) drug therapy; Z79.82 Long term (current) use of aspirin; Z88.0 Allergy status to penicillin; Z88.1 Allergy status to other antibiotic agents; Z88.2 Allergy status to sulfonamides; Z88.8 Allergy status to other drugs, medicaments and biological substances

== ENCOUNTER 2024-01-12 12:28 | Observation (INO) | payer MEDICARE, MEDICAID ==
[~2024-01-12] VITALS: Ht 170.2 cm; Wt 76.1 kg
[~2024-01-12 12:28] MED LIST changes: -FLON1SPR; +FLON1SPR NARES
[2024-01-12] MEDS ORDERED: FOLI1TAB11 PO (16:16)
[2024-01-12] MEDS ORDERED: SODI1TAB12 PO (16:16)
[2024-01-12] MEDS ORDERED: HOME MED LIST COMPLETE! XX SCH (16:20)
[2024-01-12 18:05] LABS: BASO % 0.2 % (0.0-1.0); HEMATOCRIT 33.4 % (36.0-47.0); HEMOGLOBIN 11.7 g/dl (12.0-15.5); LYMPH % 8.7 % (24.0-44.0); MEAN CORPUSCULAR HEMOGLOBIN 35.3 pg (27.0-33.0); MEAN CORPUSCULAR VOLUME 100.9 fl (80.0-96.0); MONO # 0.9 10^3/uL (0.0-0.8); MONO % 7.4 % (2.0-8.0); NEUTROPHILS # 9.7 10^3/uL (1.5-8.5); NEUTROPHILS % 83.1 % (36.0-66.0); PLATELET COUNT, AUTOMATED 121 10^3/uL (150-450); RED BLOOD COUNT 3.31 10^6/uL (4.00-5.40); WHITE BLOOD COUNT 11.6 10^3/uL (4.0-10.0)
[2024-01-12 18:14] LABS: ETHYL ALCOHOL (ETHANOL) < 0.003 % (0.000-0.010)
[2024-01-12 18:15] LABS: SALICYLATE LEVEL < 3.0 MG/DL (<30)
[2024-01-12 18:16] LABS: ALKALINE PHOSPHATASE 71 U/L (46-116); ALT/SGPT 15 U/L (7.0-40); AST/SGOT 32 U/L (<34); BILIRUBIN,DIRECT 0.2 MG/DL (<0.4); BILIRUBIN,TOTAL 0.4 MG/DL (0.3-1.2); BLOOD UREA NITROGEN 31 MG/DL (9-23); CALCIUM LEVEL 9.5 MG/DL (8.3-10.6); CARBON DIOXIDE LEVEL 24 MMOL/L (20-31); CHLORIDE LEVEL 99 MMOL/L (98-107); CREATININE FOR GFR 0.75 MG/DL (0.55-1.30); GLOMERULAR FILTRATION RATE > 60.0 (>45); GLUCOSE, FASTING 91 MG/DL (74-106); POTASSIUM SERUM 4.1 MMOL/L (3.5-5.1); SODIUM LEVEL 133 MMOL/L (136-145); TOTAL PROTEIN 6.9 G/DL (5.7-8.2)
[2024-01-12 18:17] LABS: THYROID STIMULATING HORMONE 4.932 uIU/ML (0.55-4.78)
[2024-01-12] MEDS: NS 500 ML IV ONE (18:29)
[2024-01-12 19:02] LABS: RSV AMPLIFICATION NEGATIVE (NEGATIVE)
[2024-01-12 19:21] LABS: FREE T4 0.78 NG/DL (0.89-1.76)
[2024-01-12] MEDS: CIPROFLOXACIN 400 MG in IV 1 EA IV ONE (20:04)
[2024-01-12] MEDS ORDERED: ACETAMINOPHEN TAB 650MG DOSE (2X325MG) PO PRN (22:35)
[2024-01-12] MEDS: MIRALAX *UNIT DOSE* 17GM PACKET PO SCH (22:35)
[2024-01-12] MEDS ORDERED: FLUTICASONE PROP 0.05% NASAL SPRAY 16 GM (FLONASE) PRN (22:40)
[2024-01-12] MEDS ORDERED: ALBUTEROL 90 MCG/ACT 8GM HFA INHALER INH PRN (22:40)
[2024-01-12] MEDS: ATORVASTATIN 20 MG TAB PO SCH (22:52)
[2024-01-12] MEDS: ASPIRIN 81MG ENTERIC TABLET PO SCH (22:52)
[2024-01-12] MEDS: DIVALPROEX 500 MG TAB PO SCH (22:54)
[2024-01-12] MEDS: levETIRAcetam 250MG TABLET (KEPPRA) PO SCH (23:34)
[2024-01-12] MEDS: carBAMazepine 200MG TABLET PO SCH (23:34)
[2024-01-12] MEDS: LATANOPROST 0.005% OPHTH SOLN 2.5 ML OU SCH (23:48)
[2024-01-12] MEDS: BRINZOLAMIDE 1% OPHTH SUSP (AZOPT) 10ML OU SCH (23:49)
[2024-01-13] VITALS: BP 178/81; TEMP 97.5; O2SAT 98
[2024-01-13 02:00] VITALS: BP 160/80; TEMP 97.5; O2SAT 100
[2024-01-13 04:00] VITALS: BP 132/64; TEMP 98.6; O2SAT 97
[2024-01-13] MEDS: LEVOTHYROXINE 112MCG TABLET (0.112MG) PO SCH (05:03)
[2024-01-13 06:26] LABS: BASO % 0.2 % (0.0-1.0); EOS % 0.4 % (0.0-3.0); HEMATOCRIT 28.3 % (36.0-47.0); LYMPH # 1.4 10^3/uL (1.5-5.0); LYMPH % 15.5 % (24.0-44.0); MEAN CORPUSCULAR HEMOGLOBIN 35.6 pg (27.0-33.0); MEAN CORPUSCULAR HGB CONC 35.3 g/dl (32.0-36.5); MEAN CORPUSCULAR VOLUME 100.7 fl (80.0-96.0); MONO # 0.8 10^3/uL (0.0-0.8); MONO % 8.6 % (2.0-8.0); NEUTROPHILS # 6.7 10^3/uL (1.5-8.5); NEUTROPHILS % 74.5 % (36.0-66.0); PLATELET COUNT, AUTOMATED 101 10^3/uL (150-450); RED BLOOD COUNT 2.81 10^6/uL (4.00-5.40)
[2024-01-13 06:51] LABS: BLOOD UREA NITROGEN 24 MG/DL (9-23); CALCIUM LEVEL 8.3 MG/DL (8.3-10.6); CARBON DIOXIDE LEVEL 26 MMOL/L (20-31); CHLORIDE LEVEL 103 MMOL/L (98-107); CREATININE FOR GFR 0.69 MG/DL (0.55-1.30); GLOMERULAR FILTRATION RATE > 60.0 (>45); GLUCOSE, FASTING 81 MG/DL (74-106); MAGNESIUM LEVEL 1.9 MG/DL (1.8-2.4); POTASSIUM SERUM 3.4 MMOL/L (3.5-5.1); SODIUM LEVEL 136 MMOL/L (136-145)
[2024-01-13] MEDS: carBAMazepine 200MG TABLET PO SCH ×2 (08:15→12:19)
[2024-01-13] MEDS: POTASSIUM CHLORIDE 10MEQ SR TABLET PO ONE (08:15)
[2024-01-13] MEDS: cefTRIAXone SOD 1 GM in D5W MINI-BAG PLUS 50 ML IV SCH (08:15)
[2024-01-13] MEDS: SODIUM CHLORIDE 1 GM TAB PO SCH (08:16)
[2024-01-13] MEDS: FOLIC ACID 1MG TAB PO SCH (08:16)
[2024-01-13] MEDS: CitaloPRAM (CeleXA) 20 MG TAB PO SCH (08:16)
[2024-01-13] MEDS: OMEPRAZOLE 20MG CAP PO SCH (08:16)
[2024-01-13] MEDS: SENOKOT S TAB PO SCH (08:16)
[2024-01-13] MEDS ORDERED: cefTRIAXone SOD 1 GM in D5W MINI-BAG PLUS 50 ML IV SCH (09:00)
[2024-01-13] MEDS ORDERED: cefTRIAXone SOD 2 GM in D5W MINI-BAG PLUS 50 ML IV SCH (09:00)
[2024-01-13 10:00] VITALS: BP 110/60; TEMP 97.3; O2SAT 99
[2024-01-13] MEDS: FUROSEMIDE 20 MG TAB PO SCH (11:06)
[2024-01-13 14:00] VITALS: BP 127/62; TEMP 97.3; O2SAT 98
[2024-01-13 20:00] VITALS: BP 125/80; TEMP 98.2; O2SAT 96
[2024-01-13] MEDS: ENOXAPARIN 40MG/0.4ML SYRINGE (J1650 PER 10MG) SC SCH (20:15)
[2024-01-14 00:05] VITALS: BP 119/52; TEMP 98.1; O2SAT 98
[2024-01-14 04:15] VITALS: BP 118/51; TEMP 97.9; O2SAT 97
[2024-01-14 08:13] LABS: BASO % 0.2 % (0.0-1.0); EOS % 0.5 % (0.0-3.0); HEMATOCRIT 27.3 % (36.0-47.0); HEMOGLOBIN 9.4 g/dl (12.0-15.5); LYMPH # 1.4 10^3/uL (1.5-5.0); MEAN CORPUSCULAR HEMOGLOBIN 36.2 pg (27.0-33.0); MEAN CORPUSCULAR HGB CONC 34.4 g/dl (32.0-36.5); MONO # 0.3 10^3/uL (0.0-0.8); WHITE BLOOD COUNT 5.8 10^3/uL (4.0-10.0)
[2024-01-14 08:44] LABS: BLOOD UREA NITROGEN 22 MG/DL (9-23); CARBON DIOXIDE LEVEL 25 MMOL/L (20-31); CHLORIDE LEVEL 105 MMOL/L (98-107); CREATININE FOR GFR 0.69 MG/DL (0.55-1.30); GLOMERULAR FILTRATION RATE > 60.0 (>45); GLUCOSE, FASTING 77 MG/DL (74-106); POTASSIUM SERUM 3.9 MMOL/L (3.5-5.1); SODIUM LEVEL 135 MMOL/L (136-145)
[2024-01-14 10:00] VITALS: BP 136/61; TEMP 97.2; O2SAT 99
[2024-01-14] MEDS: LevoFLOXacin 750 MG TABLET PO SCH (12:56)
[2024-01-14 14:00] VITALS: BP 132/68; TEMP 97.3; O2SAT 98
[2024-01-14 16:00] VITALS: BP 141/62; TEMP 97.3; O2SAT 99
[2024-01-14 20:00] VITALS: BP 151/62; TEMP 97.5
[2024-01-15 02:03] VITALS: BP 132/63; TEMP 97.7
[2024-01-15] MEDS ORDERED: zolPIDEM TARTRATE 5 MG TAB PO PRN (03:50)
[2024-01-15 05:37] VITALS: BP 143/61; TEMP 97.5; O2SAT 97
[2024-01-15 06:27] LABS: BASO % 0.5 % (0.0-1.0); EOS % 0.7 % (0.0-3.0); HEMATOCRIT 25.1 % (36.0-47.0); HEMOGLOBIN 8.9 g/dl (12.0-15.5); LYMPH # 1.2 10^3/uL (1.5-5.0); LYMPH % 26.5 % (24.0-44.0); MEAN CORPUSCULAR HEMOGLOBIN 35.7 pg (27.0-33.0); MEAN CORPUSCULAR HGB CONC 35.5 g/dl (32.0-36.5); MEAN CORPUSCULAR VOLUME 100.8 fl (80.0-96.0); MONO # 0.3 10^3/uL (0.0-0.8); NEUTROPHILS # 2.9 10^3/uL (1.5-8.5); NEUTROPHILS % 64.8 % (36.0-66.0); RED BLOOD COUNT 2.49 10^6/uL (4.00-5.40); WHITE BLOOD COUNT 4.4 10^3/uL (4.0-10.0)
[2024-01-15 06:32] LABS: PLATELET COUNT, AUTOMATED 84 10^3/uL (150-450)
[2024-01-15 06:56] LABS: BLOOD UREA NITROGEN 19 MG/DL (9-23); CALCIUM LEVEL 8.3 MG/DL (8.3-10.6); CARBON DIOXIDE LEVEL 26 MMOL/L (20-31); CHLORIDE LEVEL 103 MMOL/L (98-107); CREATININE FOR GFR 0.67 MG/DL (0.55-1.30); GLOMERULAR FILTRATION RATE > 60.0 (>45); GLUCOSE, FASTING 74 MG/DL (74-106); POTASSIUM SERUM 4.2 MMOL/L (3.5-5.1); SODIUM LEVEL 134 MMOL/L (136-145)
[2024-01-15 10:00] VITALS: BP 124/63; TEMP 97.5; O2SAT 98
[2024-01-15 10:25] VITALS: BP 124/63
[2024-01-15] MEDS ORDERED: LEVO1TAB40 PO (10:40)
[2024-01-20] MEDS ORDERED: CARB1TAB20 PO (18:31)
[2024-01-20] MEDS ORDERED: LEVO1TAB40 PO (18:31)
[2024-01-20] MEDS ORDERED: [UNRECOGNIZED DRUG - OTHER] (18:41)
== END 2024-01-15 12:04 | disposition home health service (06) ==
LOC: M ED 12:28 → EDBD 12:28 → INTOOBSV 22:15 → M ED INP 22:15 → ENRESERV 22:59 → M MSPAV 23:15
PROVIDERS: ADMIT Family Medicine; ATTEND Internal Medicine
DX: N30.00 Acute cystitis without hematuria (principal); N39.0 Urinary tract infection, site not specified; K59.00 Constipation, unspecified; R53.1 Weakness; G40.909 Epilepsy, unspecified, not intractable, without status epilepticus; J45.909 Unspecified asthma, uncomplicated; E87.1 Hypo-osmolality and hyponatremia; D61.818 Other pancytopenia; D75.89 Other specified diseases of blood and blood-forming organs; I27.22 Pulmonary hypertension due to left heart disease; E03.9 Hypothyroidism, unspecified; E78.5 Hyperlipidemia, unspecified; I10 Essential (primary) hypertension; K21.9 Gastro-esophageal reflux disease without esophagitis; F39 Unspecified mood [affective] disorder; G31.84 Mild cognitive impairment of uncertain or unknown etiology; H40.9 Unspecified glaucoma; R29.6 Repeated falls; E87.6 Hypokalemia; Z79.82 Long term (current) use of aspirin; Z79.899 Other long term (current) drug therapy; Z88.0 Allergy status to penicillin; Z88.1 Allergy status to other antibiotic agents
CPT/HCPCS: 36415; 51701; 70450; 71045; 72125; 73130; 74018; 74176; 76857; 80048; 80076; 80143; 81001; 82077; 82140; 83605; 83735; 84439; 84443; 85025; 85049; 85055; 87040; 87088; 87186; 87631; 93005; 93041; 94760; 96365; 96366; 96367; 96372; 96375; 97116; 97161; 97165; 97530; 97535; 99284; 99285; G0378; J0696; J0744; J1650

== ENCOUNTER → 2024-03-23 | Outpatient (CLI) | payer MEDICARE, MEDICAID ==
[~2024-03-23] MED LIST changes: +LEVO1TAB40 PO; +MIRT-10 PO; +SODI1TAB12 PO; +[UNRECOGNIZED DRUG - OTHER]
== END ==
LOC: M CARPUL 13:43
PROVIDERS: ATTEND Internal Medicine Hematology & Oncology
DX: D61.818 Other pancytopenia (principal); R60.0 Localized edema; I35.1 Nonrheumatic aortic (valve) insufficiency; I36.1 Nonrheumatic tricuspid (valve) insufficiency

== ENCOUNTER → 2024-03-24 | Outpatient (CLI) | payer MEDICARE, MEDICAID ==
[2024-03-24 14:33] LABS: BASO % 0.5 % (0.0-1.0); EOS # 0.1 10^3/uL (0.0-0.5); EOS % 1.5 % (0.0-3.0); HEMATOCRIT 31.1 % (36.0-47.0); HEMOGLOBIN 10.4 g/dl (12.0-15.5); LYMPH # 1.7 10^3/uL (1.5-5.0); LYMPH % 28.5 % (24.0-44.0); MEAN CORPUSCULAR HEMOGLOBIN 37.1 pg (27.0-33.0); MEAN CORPUSCULAR HGB CONC 33.4 g/dl (32.0-36.5); MEAN CORPUSCULAR VOLUME 111.1 fl (80.0-96.0); MONO # 0.4 10^3/uL (0.0-0.8); MONO % 6.7 % (2.0-8.0); NEUTROPHILS # 3.8 10^3/uL (1.5-8.5); NEUTROPHILS % 62.6 % (36.0-66.0); PLATELET COUNT, AUTOMATED 121 10^3/uL (150-450); WHITE BLOOD COUNT 6.1 10^3/uL (4.0-10.0)
[2024-03-24 15:04] LABS: LDH LACTATE DEHYDROGENASE 166 U/L (120-246)
[2024-03-24 15:19] LABS: HEPATITIS B SURFACE ANTIGEN NEGATIVE (NEGATIVE)
[2024-03-24 15:32] LABS: HIV 1&2 SCREEN NEGATIVE (NEGATIVE)
[2024-03-24 15:40] LABS: HEPATITIS C VIRUS ABY INDEX < 0.02 INDEX (<0.8)
== END ==
LOC: M WUC 08:20
PROVIDERS: ATTEND Internal Medicine Hematology & Oncology
DX: D64.9 Anemia, unspecified (principal); D69.6 Thrombocytopenia, unspecified; E88.09 Other disorders of plasma-protein metabolism, not elsewhere classified; E77.8 Other disorders of glycoprotein metabolism; R74.01 Elevation of levels of liver transaminase levels; Z11.59 Encounter for screening for other viral diseases; Z72.89 Other problems related to lifestyle

== ENCOUNTER → 2024-05-04 | Outpatient (CLI) | payer MEDICARE, MEDICAID | LOC: M RAD 09:26 | PROVIDERS: ATTEND Internal Medicine Hematology & Oncology | DX: D69.6 Thrombocytopenia, unspecified (principal) ==

== ENCOUNTER → 2024-06-08 | Outpatient (CLI) | payer MEDICARE, MEDICAID ==
[2024-06-08 16:46] LABS: BASO % 0.4 % (0.0-1.0); EOS # 0.1 10^3/uL (0.0-0.5); EOS % 1.7 % (0.0-3.0); HEMOGLOBIN 10.6 g/dl (12.0-15.5); LYMPH # 1.8 10^3/uL (1.5-5.0); LYMPH % 35.6 % (24.0-44.0); MEAN CORPUSCULAR HEMOGLOBIN 36.6 pg (27.0-33.0); MEAN CORPUSCULAR HGB CONC 35.3 g/dl (32.0-36.5); MEAN CORPUSCULAR VOLUME 103.4 fl (80.0-96.0); MONO # 0.4 10^3/uL (0.0-0.8); MONO % 8.5 % (2.0-8.0); NEUTROPHILS # 2.8 10^3/uL (1.5-8.5); NEUTROPHILS % 53.6 % (36.0-66.0); PLATELET COUNT, AUTOMATED 125 10^3/uL (150-450); WHITE BLOOD COUNT 5.2 10^3/uL (4.0-10.0)
[2024-06-08 17:19] LABS: VALPROIC ACID (DEPAKOTE) 90.3 UG/ML (50.0-100.0)
[2024-06-08 17:20] LABS: ALBUMIN 3.1 G/DL (3.2-5.2); ALKALINE PHOSPHATASE 95 U/L (46-116); ALT/SGPT 17 U/L (7.0-40); AST/SGOT 21 U/L (<34); BILIRUBIN,TOTAL 0.3 MG/DL (0.3-1.2); BLOOD UREA NITROGEN 22 MG/DL (9-23); CALCIUM LEVEL 8.4 MG/DL (8.3-10.6); CARBON DIOXIDE LEVEL 28 MMOL/L (20-31); CHLORIDE LEVEL 95 MMOL/L (98-107); CREATININE FOR GFR 0.76 MG/DL (0.55-1.30); GLOMERULAR FILTRATION RATE > 60.0 (>45); GLUCOSE, FASTING 76 MG/DL (74-106); POTASSIUM SERUM 4.8 MMOL/L (3.5-5.1); SODIUM LEVEL 125 MMOL/L (136-145); TOTAL PROTEIN 6.6 G/DL (5.7-8.2)
[2024-06-10 11:08] LABS: CARBAMAZEPINE (TEGRETOL) SO 8.7 mg/L (4.0-12.0)
[2024-06-12 03:33] LABS: LEVETIRACETAM (KEPPRA) 26.6 mcg/mL (6.0-46.0)
== END ==
LOC: M WUC 13:07
PROVIDERS: ATTEND Psychiatry & Neurology Neurology
DX: R56.9 Unspecified convulsions (principal); Z79.899 Other long term (current) drug therapy

== ENCOUNTER → 2024-07-13 | Outpatient (CLI) | payer MEDICARE, MEDICAID | LOC: M WHC 10:06 | PROVIDERS: ATTEND Nurse Practitioner Family | DX: Z12.31 Encounter for screening mammogram for malignant neoplasm of breast (principal); Z13.820 Encounter for screening for osteoporosis; R92.333 Mammographic heterogeneous density, bilateral breasts ==

== ENCOUNTER → 2024-08-20 | Outpatient (REF) | payer MEDICARE, MEDICAID ==
[~2024-08-20] MED LIST changes: +ACET1TAB55 PO; +CALC600C3 PO
== END ==
LOC: M SFHCPLAZ 14:43
PROVIDERS: ATTEND Physician Assistant
DX: J06.9 Acute upper respiratory infection, unspecified (principal)

== ENCOUNTER → 2024-12-30 | Outpatient (CLI) | payer MEDICARE, MEDICAID ==
[~2024-12-30] MED LIST changes: +B-10TAB2 PO; -BRIN15DR; +BRIN15DR5; +DIAL1WAF PO; -GOOD8.6T2 PO; +SENN-117 PO
[2024-12-30 14:44] LABS: BASO % 0.4 % (0.0-1.0); EOS # 0.1 10^3/uL (0.0-0.5); EOS % 2.5 % (0.0-3.0); HEMATOCRIT 30.9 % (36.0-47.0); HEMOGLOBIN 10.6 g/dl (12.0-15.5); LYMPH # 1.7 10^3/uL (1.5-5.0); LYMPH % 35.6 % (24.0-44.0); MEAN CORPUSCULAR HEMOGLOBIN 36.2 pg (27.0-33.0); MEAN CORPUSCULAR HGB CONC 34.3 g/dl (32.0-36.5); MEAN CORPUSCULAR VOLUME 105.5 fl (80.0-96.0); MONO # 0.4 10^3/uL (0.0-0.8); MONO % 8.2 % (2.0-8.0); NEUTROPHILS # 2.6 10^3/uL (1.5-8.5); NEUTROPHILS % 53.1 % (36.0-66.0); PLATELET COUNT, AUTOMATED 170 10^3/uL (150-450); RED BLOOD COUNT 2.93 10^6/uL (4.00-5.40); WHITE BLOOD COUNT 4.9 10^3/uL (4.0-10.0)
[2024-12-30 15:00] LABS: ALBUMIN 2.8 G/DL (3.2-5.2); ALKALINE PHOSPHATASE 88 U/L (35-104); ALT/SGPT 12 U/L (7.0-40); AST/SGOT 18 U/L (<34); BILIRUBIN,TOTAL 0.2 MG/DL (0.3-1.2); BLOOD UREA NITROGEN 26 MG/DL (9-23); CALCIUM LEVEL 8.8 MG/DL (8.3-10.6); CARBON DIOXIDE LEVEL 29 MMOL/L (20-31); CHLORIDE LEVEL 103 MMOL/L (98-107); CHOLESTEROL LEVEL 153 MG/DL (<200); CHOLESTEROL RISK RATIO 2.42 (<5); CREATININE FOR GFR 0.73 MG/DL (0.55-1.30); FERRITIN 185.2 NG/ML (7.3-270.7); GLOMERULAR FILTRATION RATE > 60.0 (>45); GLUCOSE, FASTING 82 MG/DL (74-106); HDL CHOLESTEROL 63.2 MG/DL (>40); LDL CHOLESTEROL 68.8 MG/DL (<100); MAGNESIUM LEVEL 1.9 MG/DL (1.8-2.4); NON-HDL-C 89.8 MG/DL; POTASSIUM SERUM 4.6 MMOL/L (3.5-5.1); SODIUM LEVEL 138 MMOL/L (136-145); TOTAL PROTEIN 6.4 G/DL (5.7-8.2); TRIGLYCERIDES LEVEL 105 MG/DL (<150)
== END ==
LOC: M WUC 08:30
PROVIDERS: ATTEND Family Medicine
DX: G40.909 Epilepsy, unspecified, not intractable, without status epilepticus (principal); E78.00 Pure hypercholesterolemia, unspecified; E03.9 Hypothyroidism, unspecified; E87.1 Hypo-osmolality and hyponatremia; Z79.899 Other long term (current) drug therapy; E83.42 Hypomagnesemia; D50.9 Iron deficiency anemia, unspecified

== ENCOUNTER 2025-06-07 16:25 | Emergency (ER) | payer MEDICARE, MEDICAID ==
[~2025-06-07] VITALS: Ht 162.6 cm; Wt 82.1 kg
[~2025-06-07 16:25] MED LIST changes: +AMLO-751 PO; -AMLO10TA PO; +DIVA-41 PO; -DIVA500T94 PO
[2025-06-07] MEDS: NEOSPORIN OINT 0.9 GM PKT TOP ONE (17:50)
[2025-06-07 19:29] VITALS: BP 134/63; TEMP 97.6; O2SAT 100
[2025-06-07] MEDS ORDERED: BACI500O8 TOP (19:36)
== END 2025-06-07 19:57 | disposition home or self-care (01) ==
LOC: M ED 16:25 → EDBD 16:25 → EDUNIT# 16:25 → M ED 19:57
DX: S61.411A Laceration without foreign body of right hand, initial encounter (principal); S09.90XA Unspecified injury of head, initial encounter; W01.198A Fall on same level from slipping, tripping and stumbling with subsequent striking against other object, initial encounter; I10 Essential (primary) hypertension; E78.5 Hyperlipidemia, unspecified; F79 Unspecified intellectual disabilities; Z79.1 Long term (current) use of non-steroidal anti-inflammatories (NSAID); Z79.52 Long term (current) use of systemic steroids; Z79.82 Long term (current) use of aspirin; Z79.02 Long term (current) use of antithrombotics/antiplatelets; Z79.899 Other long term (current) drug therapy; Y92.009 Unspecified place in unspecified non-institutional (private) residence as the place of occurrence of the external cause; Y93.89 Activity, other specified; Y99.9 Unspecified external cause status

== ENCOUNTER → 2025-07-14 | Outpatient (CLI) | payer MEDICARE, MEDICAID ==
[~2025-07-14] MED LIST changes: +BACI500O8 TOP; +CARB-19 PO; -CARB1TAB20 PO
== END ==
LOC: M WHC 10:07
PROVIDERS: ATTEND Nurse Practitioner Family
DX: Z12.31 Encounter for screening mammogram for malignant neoplasm of breast (principal); R92.333 Mammographic heterogeneous density, bilateral breasts

== ENCOUNTER → 2025-08-17 | Outpatient (CLI) | payer MEDICARE, MEDICAID ==
[2025-08-17 09:26] LABS: PLATELET COUNT, AUTOMATED 186 10^3/uL (150-450)
[2025-08-17 10:06] LABS: CALCIUM LEVEL 9.2 MG/DL (8.3-10.6); CARBON DIOXIDE LEVEL 28.0 MMOL/L (20-31); CHLORIDE LEVEL 99.0 MMOL/L (98-107); CREATININE FOR GFR 0.75 MG/DL (0.55-1.30); GLOMERULAR FILTRATION RATE 88.3 (>45); IRON (FE) 88.0 UG/DL (50-170); MAGNESIUM LEVEL 1.8 MG/DL (1.8-2.4); PERCENT SATURATION 31.4 % (13.2-45.0); POTASSIUM SERUM 4.5 MMOL/L (3.5-5.1); SODIUM LEVEL 134.0 MMOL/L (136-145)
[2025-08-17 10:09] LABS: VITAMIN B12 LEVEL 762.0 PG/ML (211-911)
== END ==
LOC: M LAB 08:28
PROVIDERS: ATTEND Family Medicine
DX: E83.42 Hypomagnesemia (principal); D53.9 Nutritional anemia, unspecified; E03.9 Hypothyroidism, unspecified